=== PATIENT | female | born 1950 | race Caucasian/White ===

== ENCOUNTER → 2019-08-10 09:14 | Outpatient (CLI) | payer MEDICARE, SELFPAY ==
--- NOTE | ~2019-08-10 | MR_ITS ---
EXAMINATION: MR ankle RT wo con DATE: 08/10/2019 10:19 INDICATION: Right ankle pain. TECHNIQUE: Magnetic resonance imaging (MRI) of the right ankle was performed without intravenous cont rast. Sequences included sagittal PD-weighted FS FSE, sagittal PD-weighted FSE, coronal PD-weighted F S FSE, coronal PD-weighted FSE, axial PD-weighted FS FSE, and axial PD-weighted FSE. COMPARISON: None. FINDINGS: Medial ankle ligaments: There are changes of prior sprain of the deltoid ligament characterized by thickening and increased s ignal involving the superficial component the deep component of the deltoid ligament is normal. Lateral ankle ligaments: There are changes of prior sprains of anterior talofibular ligament, calcaneofibular ligament, and an terior tibiofibular ligament characterized by thickening and increased signal intensity. Posterior ta lofibular ligament and posterior tibiofibular ligament are intact. Tendons: There is a longitudinal split tear of peroneus brevis tendon. The anterior and medial ankle tendons a re normal. There is a partial tear of Achilles tendon at the distal attachment where there is thicken ing and increased signal intensity. There is an enthesophyte at the calcaneal attachment. There is wray bcutaneous edema posterior to the Achilles tendon. Plantar fascia: There is thickening and increased signal involving the central band of plantar fascia. There is an en thesophyte at the calcaneal attachment. Bones/other: Bone alignment is normal. No fracture. There is partial-thickness cartilage loss of lateral talar dom e. Fluid: There is no joint effusion. There is mild pre-Achilles bursitis. IMPRESSION: 1. Low-grade partial tear of Achilles tendon at the distal attachment. 2. Mild pre-Achilles bursitis. 3. Plantar fasciitis. 4. Mild tibiotalar joint chondrosis. Reviewed, dictated and finalized at location A.
== END ==
PROVIDERS: Visit Provider Podiatrist Foot & Ankle Surgery
DX: M76.61 Achilles tendinitis, right leg (principal); M72.2 Plantar fascial fibromatosis
CPT/HCPCS: 73721

== ENCOUNTER 2019-10-23 09:45 | Outpatient (CLI) | payer MEDICARE, SELFPAY ==
[2019-10-23 10:40] LABS: Alanine Aminotransferase 20 U/L (4-35); Albumin Level 4.5 g/dL (3.5-5.1); Alkaline Phosphatase 110 U/L (38-126); Aspartate Amino Transferase 24 U/L (14-36); Bilirubin,Total 0.6 mg/dL (0.2-1.3); Blood Urea Nitrogen 10 mg/dL (7-17); Calcium 9.5 mg/dL (8.4-10.2); Carbon Dioxide 28 mmol/L (22-30); Chloride 103 mmol/L (98-107); Cholesterol 280 mg/dL (0-200); Estimated Glomerular Filt Rate > 60; Glucose 122 mg/dL (65-105); HDL Direct 42 mg/dL; Potassium 4.3 mmol/L (3.4-5.0); Sodium 139 mmol/L (137-145); Triglycerides 160 mg/dL (<150)
[2019-10-23 10:51] LABS: Hemoglobin A1C 6.7 % (<5.7); LDL Cholesterol Direct 191 mg/dL
== END 2019-10-23 09:46 | disposition home or self-care (01) ==
PROVIDERS: PCP Family Medicine; Visit Provider Family Medicine
DX: E11.9 Type 2 diabetes mellitus without complications (principal)
CPT/HCPCS: 36415; 80053; 80061; 83036

== ENCOUNTER 2020-10-30 09:24 | Outpatient (CLI) | payer MEDICARE, SELFPAY ==
[2020-10-30 10:00] LABS: Alanine Aminotransferase 21 U/L (4-35); Albumin Level 4.5 g/dL (3.5-5.1); Alkaline Phosphatase 96 U/L (38-126); Anion Gap 9 mmol/L (8-16); Aspartate Amino Transferase 26 U/L (14-36); Bilirubin,Total 0.6 mg/dL (0.2-1.3); Blood Urea Nitrogen 12 mg/dL (7-17); Calcium 9.9 mg/dL (8.4-10.2); Carbon Dioxide 27 mmol/L (22-30); Chloride 105 mmol/L (98-107); Cholesterol 271 mg/dL (0-200); Estimated Glomerular Filt Rate > 60; Glucose 113 mg/dL (65-105); HDL Direct 52 mg/dL; Potassium 4.4 mmol/L (3.4-5.0); Sodium 141 mmol/L (137-145); Triglycerides 181 mg/dL (<150)
[2020-10-30 10:06] LABS: Hematocrit 43.2 % (37.0-47.0); Hemoglobin 13.9 g/dL (12.0-15.0); Mean Corpuscular HGB Conc 32.2 g/dl (32-36); Mean Corpuscular Hemoglobin 29.8 pg (26-34); Mean Corpuscular Volume 92.7 fl (80-100); Mean Platelet Volume 9.9 fl (7.4-10.4); Platelet Count Result 297 k/mm3 (150-375); Red Blood Count 4.66 M/mm3 (4.2-5.4); Red Cell Distribution Width 13.9 % (11.5-14.5); White Blood Count 11.2 K/mm3 (4.5-10.0)
[2020-10-30 10:12] LABS: LDL Cholesterol Direct 147 mg/dL
[2020-10-30 10:38] LABS: Vitamin D 25 Hydroxy 22.9 ng/mL
[2020-10-30 11:09] LABS: Hepatitis C Virus Antibody Negative (Negative)
[2020-10-30 12:13] LABS: Iron 93 ug/dL (37-170); Percent Iron Saturation 31 % (20-50)
== END 2020-10-30 09:25 | disposition home or self-care (01) ==
PROVIDERS: PCP Family Medicine; Visit Provider Family Medicine
DX: E03.9 Hypothyroidism, unspecified (principal); E55.9 Vitamin D deficiency, unspecified; Z11.59 Encounter for screening for other viral diseases; G25.81 Restless legs syndrome; E11.9 Type 2 diabetes mellitus without complications; E78.2 Mixed hyperlipidemia; R53.83 Other fatigue
CPT/HCPCS: 36415; 80053; 80061; 82306; 82607; 82728; 83036; 83540; 83550; 84443; 85027; 86803

== ENCOUNTER 2020-11-17 13:30 | Outpatient (RCR) | payer MEDICARE, SELFPAY ==
--- NOTE | 2020-10-22 11:44 | PTOPEVAL ---
INITIAL PHYSICAL THERAPY EVALUATION and PLAN OF CARE Thank you for referring Cuca Acevedo to [facility].? Cuca is scheduled to be seen for physical therapy? 2x/week for 6 weeks. Please review, sign, date and return this plan of care LC. I agree with and certify that the following plan of care is medically necessary. Referring Physician Date Admitting Provider: Attending Provider: Daria Lyles, DPM Referring Provider: *PT Outpatient Evaluation Start: 10/22/20 10:42 Freq: Status: Active Protocol: Document 10/22/20 10:40 CHARISMA (Rec: 10/22/20 11:43 CHARISMA [id number]) Therapy Assessment Status Assessment Status Assessment Status Evaluation Outpatient Past Medical History Past Medical History Source of Past Medical History Patient Gastrointestinal History Hx Other Gastrointestinal Disorders Yes: constipation Genitourinary History Hx Other Genitourinary Disorders Yes: urinary incontinence Musculoskeletal History Hx Orthopedic Surgery Yes: R Achilles' tendon repair HEENT History Hx Cataracts Yes: consultation December 08, 2020 Reproductive History Hx Hysterectomy Yes Evaluation Information Problem Diagnosis R Achilles tendon surgery, bone spur removal Onset 09/02/20 Subjective Information Fell forward on step at [employer] Query Text:As Reported By Patient/ - caught R foot - felt a real Family strain. - fall 05/07/2020 - granddaughter wedding. Continued to feel soreness - sharp, burning pain walking up driveway. Never got better. Went to see violin repairer - had surgery - to repair tendon and remove bone spur. 2 wks after surgery in cast. Then went into walking boot - increased difficulty ambulating in walking boot - had irritation - wound occurred. Received medication from PCP - helping. Out of walking boot about 1 week ago. Has developed increase in discomfort L buttock region. 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
--- NOTE | 2020-11-23 14:22 | PCPTNOTE ---
Patient did not show up for scheduled appointment this date; called patient who stated she was confused on appointment time and was reminded on next appointment 11/26
--- NOTE | 2020-12-01 17:05 | PCPTNOTE ---
Cuca called on 11/25/2020 cancelling the remainder of her appointments due to injuring her hamstring. Will send d/c summary to .
--- NOTE | 2020-12-01 17:06 | PCPTNOTE ---
PHYSICAL THERAPY DISCHARGE SUMMARY Admitting Provider: Attending Provider: Daria Lyles, DPM Patient:Cuca Acevedo Date of :1950 Cuca phoned on 11/25/20 to cancel the remainder of her appointments due to injuring her hamstring. Therefore (he/she) will be discharged at this time. Cuca?s initial visit was on 10/22/2020 10:30 and she had a total of 8 visits. The goals have been partially met. Thank you for referring Cuca to [facility]. Please review, sign, date and return this discharge summary LC. I have been updated about Cuca's current status and I agree with discharge from the above service at this time. Referring Physician Date
== END 2020-12-04 14:40 | disposition home or self-care (01) ==
LOC: ANHPT 13:30
PROVIDERS: PCP Family Medicine; Visit Provider Podiatrist Foot & Ankle Surgery
DX: M76.61 Achilles tendinitis, right leg (principal)
CPT/HCPCS: 97035; 97110; 97140; 97161

== ENCOUNTER 2020-11-20 10:58 | Outpatient (CLI) | payer MEDICARE, SELFPAY ==
--- NOTE | ~2020-11-20 | MM_ITS ---
EXAMINATION: MM screening [facility] BI w josette HISTORY: Screening mammogram TECHNIQUE: Craniocaudal and mediolateral oblique 3-D tomosynthesis images were obtained and synthetic 2-D images were generated. CAD analysis was submitted and interpreted. COMPARISON: 12/18/2017, 03/18/2016, 12/12/2014 BREAST PARENCHYMAL COMPOSITION: There are scattered areas of fibroglandular density. FINDINGS: A stable low-density mass in the middle third of the left breast is consistent with a benig n finding. There is no evidence of suspicious mass, calcification, or architectural distortion to sug gest malignancy in either breast. There has been no suspicious interval change. IMPRESSION: 1. No mammographic evidence of malignancy. 2. Recommend routine screening mammography in one year. BI-RADS Category 2: Benign finding(s). Reviewed, dictated and finalized at location A.
== END 2020-11-20 10:59 | disposition home or self-care (01) ==
LOC: ANHIMG 10:59
PROVIDERS: PCP Family Medicine; Visit Provider Family Medicine
DX: Z12.31 Encounter for screening mammogram for malignant neoplasm of breast (principal)
CPT/HCPCS: 77063; 77067

== ENCOUNTER 2021-06-11 15:55 | Inpatient (IN) | payer MEDICARE, SELFPAY ==
--- NOTE | ~2021-06-11 | XR_ITS ---
XR abdomen NG/feed tube insert DATE: 06/11/2021 23:53 INDICATION: NG tube placement TECHNIQUE: Portable AP view on 06/03/2021 at 2341 hours COMPARISON: None FINDINGS: NG tube is present in the gastric fundus, the proximal side-port just beyond the diaphragma tic hiatus. IMPRESSION: NG tube in very proximal stomach, proximal side-port just distal to the diaphragmatic hia tus Reviewed, dictated and finalized at Location A. Reviewed, dictated and finalized at location A. ECTIONS ANALYST IMPRESSION: NG tube in very proximal stomach, proximal side-port just distal to the diaphragmatic hiatus
--- NOTE | ~2021-06-11 | XR_ITS ---
. EXAMINATION: XR UGI water soluble w sbs DATE: 06/13/2021 11:39 INDICATION: Small bowel obstruction. TECHNIQUE: Water-soluble contrast was injected into the nasogastric tube. Fluoroscopy of the stomach and small bowel was performed. Fluoroscopy exposure time was 0.1 minutes. Radiographs of the abdomen were obtained. The total number of images was 9. COMPARISON: CT abdomen and pelvis 06/11/2021 FINDINGS: UPPER GASTROINTESTINAL SERIES: The nasoenteric tube tip is in the distal stomach. The stomach and duodenum demonstrate a normal fold ing pattern. SMALL BOWEL SERIES: There are mildly dilated loops of mid small bowel. There are scattered diverticula in the small bowel . Transit time to the colon was 45 minutes. IMPRESSION: 1. Mildly dilated mid small bowel with normal transit time to the colon, consistent with adynamic ile us versus low-grade partial obstruction. Reviewed, dictated and finalized at location A. INSPECTOR IMPRESSION: 1. Mildly dilated mid small bowel with normal transit time to the colon, consis tent with adynamic ileus versus low-grade partial obstruction.
--- NOTE | ~2021-06-11 | CT_ITS ---
EXAMINATION: CT abdomen pelvis w con DATE: 06/11/2021 22:10 INDICATION: Nausea and vomiting for one day. Fever. TECHNIQUE: Computed tomography (CT) of the abdomen and pelvis was performed with 100 cc Omnipaque 350 intravenous contrast. Automated exposure control and iterative reconstruction technique were employe d. Exam dose: July 10, 2012 MR abdomen July 09, 2012 CT abdomen pelvis mGy-cm total exam DLP. COMPARISON: July 09, 2012 CT abdomen pelvis July 10, 2012 MRI abdomen FINDINGS: There is discoid atelectasis or scarring in the left lower lobe and base of the lingula. Normal heart size. No pericardial or pleural effusion. Stable small right lower hepatic lobe cyst. The gallbladder is present; no gallbladder wall thickenin g or pericholecystic fluid or fat stranding. No bile duct or pancreatic duct dilatation. No pancreati c mass lesion or calcification. Normal splenic size. 1.7 x 2.4 cm left adrenal mass (compared to 1.2 x 1.65 cm on 07/09/2012). Possible small 7.8 x 10 mm right adrenal mass. Occasional bilateral renal cysts. 4 mm nonobstructing lower pole right renal calculus. The urinary bladder is evacuated. Status post hysterectomy. Small sliding hiatal hernia. Diverticulosis of left and right colon; no CT evidence of diverticulitis. There are mildly dilated up to 3.1 cm diameter small bowel segments with air-fluid levels involving t he proximal two thirds of the small bowel with fecal-like contents in the more distally dilated small bowel just proximal to the transition zone at the mid lower abdomen. The small bowel distal to this is decompressed. There is extensive calcification of the abdominal aorta but no aneurysm. No intraperitoneal or retrop eritoneal or pelvic mass lesion or adenopathy or ascites. Degenerative changes of the thoracic and lumbar spine. No suspicious osteolytic or osteoblastic lesio ns are noted. IMPRESSION: Partial small bowel obstruction in the lower mid abdomen Reviewed, dictated and finalized at Location A. Reviewed, dictated and finalized at location A. RINTENDENT STEVEDORING
--- NOTE | ~2021-06-11 | XR_ITS ---
EXAMINATION: XR abdomen/kub 1V DATE: 06/12/2021 08:26 INDICATION: Small bowel obstruction. TECHNIQUE: A supine view of the abdomen was obtained. COMPARISON: CT abdomen and pelvis 06/11/2021 FINDINGS: There are dilated loops of small bowel in the mid and lower abdomen. The colon is decompres sed. The nasogastric tube tip is in the stomach. IMPRESSION: 1. Persistently dilated small bowel, consistent with small bowel obstruction. Reviewed, dictated and finalized at location A. NEL MACHINE OPERATOR
--- NOTE | ~2021-06-11 | XR_ITS ---
EXAMINATION: XR abdomen NG/feed tube rechec DATE: 06/12/2021 12:48 INDICATION: Nasogastric tube advancement. TECHNIQUE: An upright view of the abdomen was obtained. COMPARISON: Abdomen single view at 759 AM FINDINGS: The lower abdomen is excluded. There are no visible dilated loops of bowel. The nasogastric tube tip is in the stomach. IMPRESSION: 1. Nasogastric tube tip in the stomach. Reviewed, dictated and finalized at location A. TIC MOLDER
--- NOTE | ~2021-06-11 | XR_ITS ---
EXAMINATION: XR abdomen/kub 1V DATE: 06/13/2021 08:05 INDICATION: Small bowel obstruction. TECHNIQUE: A supine view of the abdomen on 2 radiographs was obtained. COMPARISON: Abdomen single view 06/12/2021 FINDINGS: There are no dilated loops of bowel. There is a moderate volume of stool in the colon. The nasogastric tube tip is in the stomach. IMPRESSION: 1. Nonobstructive bowel gas pattern. Reviewed, dictated and finalized at location A. LANE ELECTRICIAN
[2021-06-11 16:00] VITALS: BP 136/70; PULSE 118; RESP 16; TEMP 37.4; O2SAT 97
[2021-06-11 19:00] VITALS: BP 122/62; PULSE 103; RESP 20; O2SAT 95
[2021-06-11] MEDS: SODIUM CHLORIDE 0.9% IV 1,000 ML 999 ML IV CONT ×2 (21:22→23:37)
[2021-06-11] MEDS: ONDANSETRON INJ 4 MG/2 ML VIAL 8 MG IV PUSH (21:23)
[2021-06-11 21:24] LABS: Basophils Absolute Auto 0.1 K/mm3 (0.0-0.1); Basophils Percent Auto 0.4 % (0.2-1.2); Eosinophils Percent Auto 0.2 % (0-4.4); Hematocrit 48.7 % (37.0-47.0); Hemoglobin 16.3 g/dL (12.0-15.0); Immature Granulocyte Absolute 0.13 K/mm3 (0.00-0.031); Immature Granulocyte Percent A 0.7 % (0-0.5); Lymphocytes Absolute Auto 2.18 K/mm3 (0.9-3.2); Lymphocytes Percent Auto 12.5 % (18.3-44.2); Mean Corpuscular HGB Conc 33.5 g/dl (32-36); Mean Corpuscular Hemoglobin 30.9 pg (26-34); Mean Corpuscular Volume 92.2 fl (80-100); Mean Platelet Volume 9.5 fl (7.4-10.4); Monocytes Absolute Auto 1.4 K/mm3 (0.1-0.6); Monocytes Percent Auto 7.9 % (2.6-8.5); Neutrophils Absolute Auto 13.7 K/mm3 (1.3-6.7); Neutrophils Percent Auto 78.3 % (45.5-73.1); Platelet Count Result 320 k/mm3 (150-375); Red Blood Count 5.28 M/mm3 (4.2-5.4); Red Cell Distribution Width 13.5 % (11.5-14.5); White Blood Count 17.5 K/mm3 (4.5-10.0)
[2021-06-11 21:26] VITALS: BP 146/73; PULSE 100; RESP 18; O2SAT 99
--- NOTE | 2021-06-11 21:28 | ED.GENADULT ---
HPI - General Adult General Chief complaint: Nausea/Vomiting/Diarrhea Stated complaint: vomiting Time Seen by Provider: 06/11/21 20:49 Source: patient Mode of arrival: ambulatory Limitations: no limitations History of Present Illness HPI narrative: Patient 71 years old white female presented to the ED with intermittent abdominal pain mainly on the left lower quadrant associated with nausea vomiting started yesterday, got worse today. History of colon resection secondary to diverticulitis. Patient drinks daily, does not smoke or uses drugs. Related Data Home Medications Medication Instructions Recorded Confirmed No Home Medications 05/18/21 05/18/21 Allergies Allergy/AdvReac Type Severity Reaction Status Date / Time aspirin AdvReac Mild BLEEDING Verified 06/11/21 21:17 GUMS atorvastatin AdvReac Mild HAND Verified 06/11/21 21:17 MYALGIA simvastatin AdvReac Mild HAND Verified 06/11/21 21:17 MYALGIA Review of Systems Review of Systems: CONSTITUTIONAL: Denies fever, chills, or sweats. EYES: Denies visual changes, redness, or discharge. ENT: Denies rhinorrhea, congestion, sore throat, or otalgia. CARDIOVASCULAR: Denies chest pain, palpitations, or edema. RESPIRATORY: Denies cough or dyspnea. GASTROINTESTINAL: Denies abdominal pain, nausea, vomiting, or diarrhea. GENITOURINARY: Denies dysuria or hematuria. SKIN: Denies rash or itching. MUSCULOSKELETAL: Denies back pain, joint pain, or myalgia. NEUROLOGIC: Denies headache, numbness, or weakness. PSYCHIATRIC: Denies anxiety or depression. PMFSH Past Medical History Medical History Mixed hyperlipidemia Family History Family History Mother Family history of diabetes mellitus in first degree relative Diabetes mellitus Family history of coronary artery disease Father Acute myocardial infarction Family history of coronary artery disease Social History Social History Second hand tobacco smoke exposure: No Smoking end date: 05/15/96 Alcohol intake: never Substance use: never Substance use type: does not use Spiritual care concerns: No Agree to blood products: Yes Exam Narrative: General appearance: Well-developed, well-nourished Skin: Normal color Head: Normocephalic, nontraumatic Eyes: Clear conjunctiva ENT: Oropharynx normal, ears normal, nose normal Neck: Supple, nontender Chest and respiratory: Airway patent, no respiratory distress, no accessory muscle use Heart: Regular rate/rhythm Abdomen: Soft, positive tenderness left lower quadrant, no organomegaly, quiet bowel sounds Vascular: Normal peripheral pulses, normal capillary refill. Musculoskeletal: Normal range of motion, nontender back Neurologic: Alert and oriented ?3, [employer] is normal as tested, no gross motor deficit Course Course Emergency Course: Stable Vital Signs Vital signs: Vital Signs Temperature 37.4 C 06/11/21 16:00 Pulse Rate 118 H 06/11/21 16:00 Respiratory Rate 16 06/11/21 16:00 Blood Pressure 136/70 06/11/21 16:00 Pulse Oximetry 97 06/11/21 16:00 Temperature 37.4 C 06/11/21 16:00 Pulse Rate 100 06/11/21 21:26 Respiratory Rate 18 06/11/21 21:26 Blood Pressure 146/73 H 06/11/21 21:26 Pulse Oximetry 99 06/11/21 21:26 Medical Decision Making MDM Narrative Medical decision making narrative: Patient presents with left lower quadrant pain, Work-up showed that the patient have partial small bowel obstruction, NG tube ordered. Patient will be admitted for further evaluation. Differential Diag
[2021-06-11 21:30] LABS: Add Urine Microscopic? YES; Appearance Urine Clear (Clear); Bilirubin Urine Negative (Negative); Blood Urine Negative (Negative); Color Urine Yellow (Yellow); Glucose Urine UA Negative (Negative); Ketones Urine Trace mg/dL (Negative); Leukocyte Esterase Ur Negative LEU/UL (Negative); Mucus Urine Few /lpf; Nitrate Urine Negative (Negative); Protein Urine 1+ mg/dL (Negative); RBC Urine 0-2 /hpf (0-2); Specific Grav Ur 1.025 (1.001-1.035); Squamous Epithelial Cell Urine Moderate /hpf (Few); Urobilinogen Urine Negative mg/dL (<2.0)
[2021-06-11 21:40] LABS: Albumin Level 5.3 g/dL (3.5-5.1); Alkaline Phosphatase 103 U/L (38-126); Anion Gap 15 mmol/L (8-16); Aspartate Amino Transferase 34 U/L (14-36); Bilirubin,Total 1.3 mg/dL (0.2-1.3); Blood Urea Nitrogen 21 mg/dL (7-17); Calcium 9.8 mg/dL (8.4-10.2); Carbon Dioxide 22 mmol/L (22-30); Chloride 100 mmol/L (98-107); Estimated Glomerular Filt Rate > 60; Glucose 148 mg/dL (65-110); Lipase 28 U/L (23-300); Potassium 4.4 mmol/L (3.4-5.0); Sodium 137 mmol/L (137-145)
[2021-06-11 21:46] LABS: Alanine Aminotransferase 32 U/L (4-35)
[2021-06-11] MEDS: MORPHINE SULFATE (*CRX) 4 MG/ML INJ IV PUSH (23:42)
--- NOTE | 2021-06-12 01:36 | PM.IMHP ---
H&P: HPI History of Present Illness Date/Time: 06/12/21 01:36 Chief Complaint: Nausea vomiting abdominal pain Narrative: 71-year-old female with past medical history of prior sigmoid colon resection due to prior diverticulitis with pelvic abscess in 2012 who presented to the ER from home with she is nausea, vomiting and and abdominal pain. He reported this that she began having abdominal pain a few hours after eating a hamburger and 3 potato fries on the . She attempted to take Pepto-Bismol without any relief in her symptoms. She had greater than 10 episodes of emesis in a 12 hour period. Her emesis was unrelieved the Pepto-Bismol. She had crampy he, intermittent abdominal pain as a 7/10 in intensity. She would have occasional sharp stabbing pains accompanying this. The pain was mostly in the left lower quadrant. Her emesis was dark in color. She had an NG placed in the ER after CT demonstrated partial small-bowel obstruction. She has had 250 mL of bilious material aspirated. She reports that her abdominal pain is actually a little bit worse after placement of NG tube as pain is more crampy infrequent. She reports resolution of her nausea after NG was placed. She has not had a bowel movement in 5 days. She has history of chronic constipation. She usually takes a laxative any time she goes more than 3 days without having a bowel movement. Unfortunately, her vomiting started before she could take her laxative. She has intermittent urgent stress urinary incontinence. She denies any dysuria or changes in urinary frequency. She denies any hematochezia or melena. She has not had any fevers or chills. Her temperature in the ER was 99.4. She is vaccinated against COVID-19. She received her [employer] vaccine last year and then had a [employer] booster in April. Review of Systems Review of Systems: 12 systems were reviewed with pertinent positives and negatives per HPI. Except as documented in the HPI, all other systems were reviewed and are negative. [facility] Past Medical History Medical History (Updated 06/12/21 @ 04:35 by Aleah Flores DO) Chronic constipation Diverticulitis Mixed hyperlipidemia Intolerant to statins Mixed stress and urge urinary incontinence Surgical History Surgical History (Updated 06/12/21 @ 04:14 by Aleah Flores DO) H/O resection of large bowel Due to diverticulitis History of right cataract extraction Family History Family History (Updated 06/12/21 @ 04:29 by Aleah Flores DO) Mother , Age greater than 80 Diabetes mellitus Father , at age 89 Acute myocardial infarction Age greater than 80 Social History Social History (Updated 06/12/21 @ 04:33 by Aleah Flores DO) Social History: She has been since 2017. She was for 51 years prior to her 's . She has 3 adult sons. 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 She smoked a half a pack of cigarettes per day for 20 years but quit smoking in her late 30s. She drinks 1 mixed drink a night since her . She denies any illicit substance use. Primary care physician: Dr. Rose Marie Henriquez Code status: Full code Healthcare power of corporate attorney: Harsha (oldest son) Second hand tobacco smoke exposure: No Smoking end date: 05/15/84 Alcohol intake: never Substance use: never Spiritual care concerns: No Agree to blood products: Yes Meds Home Medications and Allergies Home Medications Medication Instructions Recorded Confirmed Type No Home Medications 05/18/21 06/12/21 History Allergies Allergy/AdvReac Type Severity Reaction Status Date / Time aspirin AdvReac Mild BLEEDING Verified 06/11/21 21:17 GUMS atorvastatin AdvReac Mild HAND Verified 06/11/21 21:17 MYALGIA simvastatin AdvReac Mild HAND Verified 06/11/21 21:17 MYALGIA Natalie
[2021-06-12 01:38] LABS: SARS-CoV-2 RNA PCR Negative
[2021-06-12 02:22] VITALS: BP 152/71; PULSE 93; RESP 17; O2SAT 97
[2021-06-12] MEDS: SODIUM CHLORIDE 0.9% IV 1,000 ML 150 ML IV CONT (02:26)
--- NOTE | 2021-06-12 03:34 | PC.NURSE ---
JAZZMINE from Dr. Flores: pt may leave AMA.
[2021-06-12 05:29] VITALS: O2SAT 97
[2021-06-12 06:05] VITALS: BP 159/63; PULSE 98; RESP 18; TEMP 36.6; O2SAT 98
--- NOTE | 2021-06-12 06:32 | ADMGEN ---
This patient, Cuca Acevedo, was admitted to [facility] Room 330-02. Patient/family oriented to hospital policies and general routines including ID bracelet, bed and alarms, visiting hours, pain management, procedures, bathroom and other care routines, personal items, smoking policy, room service/diet, and visiting hours. Information on how to activate the Rapid Response Team has been discussed. Patient/Family are encouraged to report perceived risks to care and to ask questions if they do not understand what they are told or what they should do.
[2021-06-12 07:42] LABS: Basophils Absolute Auto 0.1 K/mm3 (0.0-0.1); Basophils Percent Auto 0.4 % (0.2-1.2); Eosinophils Absolute Auto 0.1 K/mm3 (0-0.3); Eosinophils Percent Auto 0.4 % (0-4.4); Hematocrit 40.1 % (37.0-47.0); Hemoglobin 13.2 g/dL (12.0-15.0); Immature Granulocyte Percent A 0.6 % (0-0.5); Lymphocytes Absolute Auto 2.04 K/mm3 (0.9-3.2); Mean Corpuscular HGB Conc 32.9 g/dl (32-36); Mean Corpuscular Hemoglobin 31.1 pg (26-34); Mean Corpuscular Volume 94.4 fl (80-100); Monocytes Absolute Auto 1.8 K/mm3 (0.1-0.6); Monocytes Percent Auto 11.3 % (2.6-8.5); Neutrophils Absolute Auto 11.6 K/mm3 (1.3-6.7); Neutrophils Percent Auto 74.3 % (45.5-73.1); Platelet Count Result 270 k/mm3 (150-375); Red Blood Count 4.25 M/mm3 (4.2-5.4); Red Cell Distribution Width 13.6 % (11.5-14.5); White Blood Count 15.6 K/mm3 (4.5-10.0)
[2021-06-12 07:53] LABS: Anion Gap 16 mmol/L (8-16); Blood Urea Nitrogen 18 mg/dL (7-17); Calcium 8.1 mg/dL (8.4-10.2); Carbon Dioxide 13 mmol/L (22-30); Chloride 106 mmol/L (98-107); Estimated Glomerular Filt Rate > 60; Glucose 120 mg/dL (65-110); Potassium 4.3 mmol/L (3.4-5.0); Sodium 135 mmol/L (137-145)
[2021-06-12] MEDS: ONDANSETRON INJ 4 MG/2 ML VIAL IV PUSH (08:53)
[2021-06-12] MEDS: SODIUM CHLORIDE 0.9% IV 1,000 ML 100 ML IV CONT ×2 (11:58→20:30)
[2021-06-12] MEDS: ENOXAPARIN 40 MG/0.4 ML SYRINGE SUB-Q (12:04)
[2021-06-12] MEDS: MORPHINE SULFATE (*CRX) 4 MG/ML INJ IV PUSH (12:12)
--- NOTE | 2021-06-12 12:39 | PM.IMPN ---
Progress Note: A&P Assessment and Plan (1) Partial obstruction of small intestine: Code(s): K56.600 - Partial intestinal obstruction, unspecified as to cause Status: Acute Assessment and Plan: Partial small-bowel obstruction with history of prior sigmoid colon resection. Patient is NPO except for ice chips. NG tube in place to low intermittent suction. IV fluid hydration Analgesics and antiemetics f/u KUB and clinical status Subjective Date/time seen: 06/12/21 12:39 Interval history: 06/12 visit: Mild abdominal cramping. No further nausea or vomiting. Tolerating NG-tube although she wants and out. Past minimal flatus today. Last bowel movement 06/09. Denied chest pain or shortness of breath. Denied changes. Denied abnormal bleeding. Review of Systems Review of Systems: All systems reviewed & are unremarkable except as noted in HPI and below Exam Narrative: HEENT: sclerae nonicteric, pharyngeal mucosa pink and intact NECK: No JVD CHEST: Clear to auscultation. Normal effort. HEART: NL S1/S2, regular, no murmur ABDOMEN: BS+, protuberant but soft, MILD DIFFUSE TENDERNESS, no mass, no bruits EXTREMITIES: No cyanosis, edema, or clubbing NEUROLOGIC: CN intact and symmetric to inspection. MUSCULOSKELETAL: Tone and strength symmetric. PSYCH: Alert. Oriented to person, place, and time. Objective Data Vital Signs Vital Signs: Vital Signs - 24 hr 06/11/21 16:00 06/11/21 19:00 06/11/21 21:26 Temperature 99.4 F Pulse Rate 118 H 103 H 100 Respiratory Rate 16 20 18 Blood Pressure 136/70 122/62 146/73 H Pulse Oximetry 97 95 99 06/12/21 02:22 06/12/21 05:29 06/12/21 06:05 Temperature 98 F Pulse Rate 93 98 Respiratory Rate 17 18 Blood Pressure 152/71 H 159/63 H Pulse Oximetry 97 97 98 Intake/Output Intake/Output: Intake & Output 06/09/21 06/10/21 06/11/21 06/12/21 23:59 23:59 23:59 23:59 Intake Total 1000 2050 Output Total 100 400 Balance 900 1650 Meds/Results Medications: Active Medications Generic Name Dose Route Start Last Admin Trade Name Freq PRN Reason Stop Dose Admin Enoxaparin Sodium 40 mg 06/12/21 09:00 06/12/21 12:04 Enoxaparin 40 Mg/0.4 Ml Syringe SUB-Q 40 mg DAILY RACIEL Administration Sodium Chloride 1,000 mls @ 100 mls/hr 06/11/21 23:20 06/12/21 11:58 Normal Saline Iv IV CONT 100 mls/hr .Q10H RACIEL Administration Ibuprofen 800 mg in 200 mls @ 400 mls/hr 06/12/21 08:47 Caldolor 800 Mg/200 Ml IVPB Q6H PRN Pain Rated 1-3 Morphine Sulfate 2 mg 06/12/21 08:47 Morphine Sulfate (*Crx) 2 Mg/Ml Inj IV PUSH Q2H PRN Pain Rated 4-6 Morphine Sulfate 4 mg 06/12/21 08:47 06/12/21 12:12 Morphine Sulfate (*Crx) 4 Mg/Ml Inj IV PUSH 4 mg Q2H PRN Administration Pain Rated 7-10 Ondansetron HCl 4 mg 06/11/21 23:18 06/12/21 08:53 Ondansetron Inj 4 Mg/2 Ml Vial IV PUSH 4 mg Q4H PRN Administration Nausea Radiology Results: ITS Impressions Abdomen/Pelvis CT 06/11/21 22:21 IMPRESSION: Partial small bowel obstruction in the lower mid abdomen Abdomen X-Ray 06/12/21 08:38 IMPRESSION: 1. Persistently dilated small bowel, consistent with small bowel obstruction. Labs Labs: Laboratory Results - last 24 hr 06/11/21 06/11/21 06/11/21 20:57 21:12 21:12 WBC 17.5 H RBC 5.28 Hgb 16.3 H Hct 48.7 H MCV 92.2 MCH 30.9 MCHC 33.5 RDW 13.5 Plt Count 320 MPV 9.5 Immature Gran % (Auto) 0.7 H Neut % (Auto) 78.3 H Lymph % (Auto) 12.5 L [place] % (Auto) 7.9 Eos % (Auto) 0.2 Baso % (Auto) 0.4 Lymph # (Auto) 2.18 [place] # (Auto) 1.4 H Eos # (Auto) 0.0 Baso # (Auto) 0.1 Abs Immat Gran (auto) 0.13 H Absolute Neuts (auto) 13.7 H Absolute Nucleated RBC 0.0 Nucleated RBC % 0.0 Sodium 137 Potassium 4.4 Chloride 100 Carbon Dioxide 22 Anion Gap 15 BUN 21 H Creatinine 0.80
--- NOTE | 2021-06-12 12:46 | PM.CNGS ---
Assessment and Plan Assessment and plan (1) Partial obstruction of small intestine: Code(s): K56.600 - Partial intestinal obstruction, unspecified as to cause Status: Acute Assessment and Plan: continue NG tube, NPO, IV fluids and analgesics on a p.r.n. basis. Will follow serial abdominal exam, labs, and KUB. I discussed with the patient that usually small bowel obstruction does resolve without surgery. However, if it does not, she may require laparotomy for small bowel obstruction. I described the usual course in both instances. Thank you for asking us to see this patient in consultation. We will follow along with you. History of Present Illness Consult details Consult date: 06/12/21 Reason for consult: abdominal pain ( With small-bowel obstruction) Requesting physician: Aleah Flores DO Narrative: patient is a 71-year-old woman whom I know from laparoscopic sigmoidectomy for diverticulitis in 2012. Two days ago after eating she developed abdominal pain and had numerous episodes of vomiting. in the emergency room she was noted to have a distended abdomen with tenderness in the left lower quadrant. [place] [address] scan showed small bowel obstruction. She has been admitted and is seen now in consultation for small bowel obstruction. Review of Systems Review of Systems: All systems reviewed & are unremarkable except as noted in HPI and below ( HPI) Constitutional: Constitutional: Denies chills, Denies fever(s) and Reports poor appetite Cardiovascular: Cardiovascular: Denies chest pain, Denies diaphoresis, Denies dyspnea and Denies paroxysmal nocturnal dyspnea Respiratory: Respiratory: Denies chest congestion, Denies cough and Denies dyspnea Integumentary/Breasts: Skin/Breast: Denies lesions and Denies rash PMFSH Past Medical History Medical History Chronic constipation Diverticulitis Mixed hyperlipidemia Intolerant to statins Mixed stress and urge urinary incontinence Surgical History Surgical History H/O resection of large bowel Due to diverticulitis History of right cataract extraction Family History Family History Mother , Age greater than 80 Diabetes mellitus Father , at age 89 Acute myocardial infarction Age greater than 80 Social History Social History Social History: She has been since 2017. She was for 51 years prior to her 's . She has 3 adult sons. 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 She smoked a half a pack of cigarettes per day for 20 years but quit smoking in her late 30s. She drinks 1 mixed drink a night since her . She denies any illicit substance use. Primary care physician: Dr. Rose Marie Henriquez Code status: Full code Healthcare power of tar worker: Harsha (oldest son) Smoking status: Former smoker Tobacco type: cigarettes Second hand tobacco smoke exposure: No Smoking end date: 05/15/84 Alcohol intake: never Substance use: never Spiritual care concerns: No Agree to blood products: Yes Meds Home Medications and Allergies Home Medications Medication Instructions Recorded Confirmed Type No Home Medications 05/18/21 06/12/21 History Allergies Allergy/AdvReac Type Severity Reaction Status Date / Time aspirin AdvReac Mild BLEEDING Verified 06/11/21 21:17 GUMS atorvastatin AdvReac Mild HAND Verified 06/11/21 21:17 MYALGIA simvastatin AdvReac Mild HAND Verified 06/11/21 21:17 MYALGIA Vital Signs Vital Signs - 24 hr 06/11/21 16:00 06/11/21 19:00 06/11/21 21:26 Temperature 37.4 C Pulse Rate 118 H 103 H 100 R
[2021-06-12 15:08] VITALS: BP 141/67; PULSE 80; RESP 16; TEMP 36.7; O2SAT 95
[2021-06-12 20:00] VITALS: PULSE 80; RESP 16; O2SAT 95
[2021-06-12] MEDS: PANTOPRAZOLE SODIUM IV 40 MG VIAL IV PUSH (20:27)
[2021-06-12 22:00] VITALS: BP 141/66; PULSE 90; RESP 16; TEMP 36.3; O2SAT 95
[2021-06-13] MEDS: SODIUM CHLORIDE 0.9% IV 1,000 ML 100 ML IV CONT ×2 (04:12→09:46)
[2021-06-13 06:00] VITALS: BP 145/61; PULSE 79; RESP 18; TEMP 36.9; O2SAT 96
[2021-06-13 09:52] LABS: Hematocrit 38.8 % (37.0-47.0); Hemoglobin 12.7 g/dL (12.0-15.0); Mean Corpuscular HGB Conc 32.7 g/dl (32-36); Mean Corpuscular Hemoglobin 31.2 pg (26-34); Mean Corpuscular Volume 95.3 fl (80-100); Mean Platelet Volume 9.6 fl (7.4-10.4); Platelet Count Result 239 k/mm3 (150-375); Red Blood Count 4.07 M/mm3 (4.2-5.4); Red Cell Distribution Width 13.2 % (11.5-14.5); White Blood Count 13.1 K/mm3 (4.5-10.0)
[2021-06-13] MEDS: ENOXAPARIN 40 MG/0.4 ML SYRINGE SUB-Q (09:53)
[2021-06-13] MEDS: PANTOPRAZOLE SODIUM IV 40 MG VIAL IV PUSH (09:53)
--- NOTE | 2021-06-13 09:56 | PM.PNGS ---
Progress Note: A&P Assessment and Plan (1) Partial obstruction of small intestine: Code(s): K56.600 - Partial intestinal obstruction, unspecified as to cause Status: Acute Assessment and Plan: Improving clinically and radiographically. Labs look good as well. Will get water soluble contrast upper GI small-bowel follow-through today. If transit is relatively normal, DC NG and start oral intake. Subjective Subjective Date/Time Seen: 06/13/21 09:56 Patient reports: pain is less (No abdominal pain, complains of NG tube), no flatus and no bowel movement Review of Systems Review of Systems: All systems reviewed & are unremarkable except as noted in HPI and below Cardiovascular: Cardiovascular: Denies chest pain and Denies dyspnea Respiratory: Respiratory: Denies cough and Denies dyspnea Gastrointestinal: Gastrointestinal: Reports as per HPI, Denies abdominal pain, Denies heartburn, Denies nausea and Denies vomiting Exam Const: General: comfortable and no acute distress; No confusion Orientation/consciousness: patient oriented x3 and No confusion GI: Inspection: distended GI Palp: Yes Soft to palpation, No Tenderness to palpation present (GI), No Guarding due to palpation present (GI), No Hernia present, No Palpable mass present and No Rebound tenderness present Neuro: General: patient oriented x3, no focal motor deficits and No confusion Extrem: General: no calf tenderness and no edema Psych: Affect: normal affect Insight: Good insight present (Psych) Judgement: Good judgement present (Psych) Objective Data Vital Signs Vital Signs: Vital Signs - 24 hr 06/12/21 15:08 06/12/21 20:00 06/12/21 22:00 Temperature 36.7 C 36.3 C L Pulse Rate 80 80 90 Respiratory Rate 16 16 16 Blood Pressure 141/67 H 141/66 H Pulse Oximetry 95 95 95 06/13/21 06:00 Temperature 36.9 C Pulse Rate 79 Respiratory Rate 18 Blood Pressure 145/61 H Pulse Oximetry 96 Intake/Output Intake/Output: Intake & Output 06/10/21 06/11/21 06/12/21 06/13/21 23:59 23:59 23:59 23:59 Intake Total 1000 3050 2000 Output Total 100 400 Balance 900 2650 1999 Meds/Results Medications: Active Medications Generic Name Dose Route Start Last Admin Trade Name Freq PRN Reason Stop Dose Admin Enoxaparin Sodium 40 mg 06/12/21 09:00 06/13/21 09:53 Enoxaparin 40 Mg/0.4 Ml Syringe SUB-Q 40 mg DAILY RACIEL Administration Sodium Chloride 1,000 mls @ 100 mls/hr 06/11/21 23:20 06/13/21 09:46 Normal Saline Iv IV CONT 100 mls/hr .Q10H RACIEL Administration Ibuprofen 800 mg in 200 mls @ 400 mls/hr 06/12/21 08:47 Caldolor 800 Mg/200 Ml IVPB Q6H PRN Pain Rated 1-3 Morphine Sulfate 2 mg 06/12/21 08:47 Morphine Sulfate (*Crx) 2 Mg/Ml Inj IV PUSH Q2H PRN Pain Rated 4-6 Morphine Sulfate 4 mg 06/12/21 08:47 06/12/21 12:12 Morphine Sulfate (*Crx) 4 Mg/Ml Inj IV PUSH 4 mg Q2H PRN Administration Pain Rated 7-10 Ondansetron HCl 4 mg 06/11/21 23:18 06/12/21 08:53 Ondansetron Inj 4 Mg/2 Ml Vial IV PUSH 4 mg Q4H PRN Administration Nausea Pantoprazole Sodium 40 mg 06/12/21 21:00 06/13/21 09:53 Pantoprazole Sodium Iv 40 Mg Vial IV PUSH 40 mg Q12HR RACIEL Administration Radiology Results: ITS Impressions Abdomen/Pelvis CT 06/11/21 22:21 IMPRESSION: Partial small bowel obstruction in the lower mid abdomen Abdomen X-Ray 06/13/21 08:07 IMPRESSION: 1. Nonobstructive bowel gas pattern. Imaging Attestation: I personally reviewed and interpreted this imaging study as follows: (Abdominal plain film) My impression: Normal bowel gas pattern, NG in good position Radiologist's impression: Same Quality VTE Prophylaxis VTE prophylaxis: mechanical ordered (SCDs)
[2021-06-13 10:10] LABS: Anion Gap 7 mmol/L (8-16); Blood Urea Nitrogen 10 mg/dL (7-17); Calcium 8.5 mg/dL (8.4-10.2); Carbon Dioxide 23 mmol/L (22-30); Chloride 104 mmol/L (98-107); Estimated Glomerular Filt Rate > 60; Glucose 81 mg/dL (65-110); Potassium 3.4 mmol/L (3.4-5.0); Sodium 134 mmol/L (137-145)
[2021-06-13] MEDS: MORPHINE SULFATE (*CRX) 4 MG/ML INJ IV PUSH (10:26)
--- NOTE | 2021-06-13 13:04 | PM.IMPN ---
Progress Note: A&P Assessment and Plan (1) Partial obstruction of small intestine: Code(s): K56.600 - Partial intestinal obstruction, unspecified as to cause Status: Acute Assessment and Plan: Partial small-bowel obstruction with history of prior sigmoid colon resection. 06/13 small-bowel follow-through with approximately 45 minute transit to colon consistent with ileus versus resolving partial obstruction 06/13 NG out and advance diet per surgical service Possibly home 06/14 Subjective Date/time seen: 06/13/21 13:04 Interval history: June 13 visit. No abdominal pain. No cramping. No nausea vomiting. Passing gas and stool. NG out this morning. Review of Systems Review of Systems: All systems reviewed & are unremarkable except as noted in HPI and below Exam Narrative: HEENT: sclerae nonicteric, pharyngeal mucosa pink and intact NECK: No JVD CHEST: Clear to auscultation. Normal effort. HEART: NL S1/S2, regular, no murmur ABDOMEN: BS+, protuberant but soft, nontender EXTREMITIES: No cyanosis, edema, or clubbing NEUROLOGIC: CN intact and symmetric to inspection. MUSCULOSKELETAL: Tone and strength symmetric. PSYCH: Alert. Oriented to person, place, and time. Objective Data Vital Signs Vital Signs: Vital Signs - 24 hr 06/12/21 15:08 06/12/21 20:00 06/12/21 22:00 Temperature 98.1 F 97.4 F L Pulse Rate 80 80 90 Respiratory Rate 16 16 16 Blood Pressure 141/67 H 141/66 H Pulse Oximetry 95 95 95 06/13/21 06:00 Temperature 98.4 F Pulse Rate 79 Respiratory Rate 18 Blood Pressure 145/61 H Pulse Oximetry 96 Intake/Output Intake/Output: Intake & Output 06/10/21 06/11/21 06/12/21 06/13/21 23:59 23:59 23:59 23:59 Intake Total 1000 3050 2000 Output Total 100 400 Balance 900 2650 1999 Meds/Results Medications: Active Medications Generic Name Dose Route Start Last Admin Trade Name Freq PRN Reason Stop Dose Admin Enoxaparin Sodium 40 mg 06/12/21 09:00 06/13/21 09:53 Enoxaparin 40 Mg/0.4 Ml Syringe SUB-Q 40 mg DAILY RACIEL Administration Sodium Chloride 1,000 mls @ 60 mls/hr 06/11/21 23:20 06/13/21 12:56 Normal Saline Iv IV CONT 60 mls/hr .[id number] [facility] Infusion Ibuprofen 800 mg in 200 mls @ 400 mls/hr 06/12/21 08:47 Caldolor 800 Mg/200 Ml IVPB Q6H PRN Pain Rated 1-3 Morphine Sulfate 2 mg 06/12/21 08:47 Morphine Sulfate (*Crx) 2 Mg/Ml Inj IV PUSH Q2H PRN Pain Rated 4-6 Morphine Sulfate 4 mg 06/12/21 08:47 06/13/21 10:26 Morphine Sulfate (*Crx) 4 Mg/Ml Inj IV PUSH 4 mg Q2H PRN Administration Pain Rated 7-10 Ondansetron HCl 4 mg 06/11/21 23:18 06/12/21 08:53 Ondansetron Inj 4 Mg/2 Ml Vial IV PUSH 4 mg Q4H PRN Administration Nausea Pantoprazole Sodium 40 mg 06/13/21 21:00 Pantoprazole 40 Mg Tablet PO Q12HR [facility] Radiology Results: ITS Impressions Abdomen/Pelvis CT 06/11/21 22:21 IMPRESSION: Partial small bowel obstruction in the lower mid abdomen Abdomen X-Ray 06/13/21 08:07 IMPRESSION: 1. Nonobstructive bowel gas pattern. Upper GI Series 06/13/21 11:45 IMPRESSION: 1. Mildly dilated mid small bowel with normal transit time to the colon, consistent with adynamic ileus versus low-grade partial obstruction. Labs Labs: Laboratory Results - last 24 hr 06/13/21 06/13/21 09:14 09:14 WBC 13.1 H RBC 4.07 L Hgb 12.7 Hct 38.8 MCV 95.3 MCH 31.2 MCHC 32.7 RDW 13.2 Plt Count 239 MPV 9.6 Sodium 134 L Potassium 3.4 Chloride 104 Carbon Dioxide 23 Anion Gap 7 L BUN 10 D Creatinine 0.60 L Estim Creat Clear Calc Not Reportable Estimated GFR > 60 Glucose 81 Calcium 8.5 Quality VTE Prophylaxis VTE prophylaxis: mechanical ordered (SCDs)
[2021-06-13 15:00] VITALS: BP 112/60; PULSE 100; RESP 16; TEMP 36.1; O2SAT 97
[2021-06-13] MEDS: PANTOPRAZOLE 40 MG TABLET PO (21:19)
[2021-06-13 22:16] VITALS: BP 124/45; PULSE 78; RESP 18; TEMP 36.6; O2SAT 96
[2021-06-14 04:44] VITALS: O2SAT 93
[2021-06-14 06:47] VITALS: BP 137/54; PULSE 73; RESP 18; TEMP 37.1; O2SAT 96
[2021-06-14 07:21] LABS: Hematocrit 36.4 % (37.0-47.0); Hemoglobin 12.1 g/dL (12.0-15.0); Mean Corpuscular HGB Conc 33.2 g/dl (32-36); Mean Corpuscular Hemoglobin 30.6 pg (26-34); Mean Corpuscular Volume 92.2 fl (80-100); Mean Platelet Volume 9.7 fl (7.4-10.4); Platelet Count Result 249 k/mm3 (150-375); Red Blood Count 3.95 M/mm3 (4.2-5.4); Red Cell Distribution Width 13.1 % (11.5-14.5); White Blood Count 11.5 K/mm3 (4.5-10.0)
[2021-06-14 07:34] LABS: Anion Gap 3 mmol/L (8-16); Blood Urea Nitrogen 12 mg/dL (7-17); Calcium 8.9 mg/dL (8.4-10.2); Carbon Dioxide 26 mmol/L (22-30); Chloride 105 mmol/L (98-107); Estimated Glomerular Filt Rate > 60; Glucose 111 mg/dL (65-110); Potassium 3.4 mmol/L (3.4-5.0); Sodium 134 mmol/L (137-145)
[2021-06-14] MEDS: ENOXAPARIN 40 MG/0.4 ML SYRINGE SUB-Q (09:22)
[2021-06-14] MEDS: PANTOPRAZOLE 40 MG TABLET PO (09:22)
--- NOTE | 2021-06-14 11:33 | PM.PNGS ---
Progress Note: A&P Assessment and Plan (1) Partial obstruction of small intestine: Code(s): K56.600 - Partial intestinal obstruction, unspecified as to cause Status: Acute Assessment and Plan: Small-bowel follow-through yesterday showed contrast reaching the colon in 45 minutes. Now tolerating a low-fiber diet. Bowels are moving. Okay from our standpoint to discharge the patient today on a regular diet. Follow up only as needed. Additional Plan I have discussed theplan of care with Dr. Redmond. Subjective Subjective Date/Time Seen: 06/14/21 11:33 Patient reports: no new complaints, feels better, tolerating a regular diet, flatus, bowel movement and afebrile Interval history: Patient seen and examined. Reports feeling much better. Denies any abdominal pain, nausea, vomiting, or bloating. Tolerating her diet. Reports multiple bowel movements since her Gastrografin study yesterday. No other complaints at this time. Review of Systems Review of Systems: All systems reviewed & are unremarkable except as noted in HPI and below Exam Const: General: comfortable, no acute distress, alert and awake Orientation/consciousness: patient oriented x3 GI: Inspection: non-distended and no visible herniation GI Palp: Yes Soft to palpation, No Tenderness to palpation present (GI), No Guarding due to palpation present (GI) and No Rebound tenderness present Auscultation: normal bowel sounds Neuro: General: moves all extremities and no focal motor deficits Extrem: General: normal to inspection Psych: Insight: Good insight present (Psych) Judgement: Good judgement present (Psych) Objective Data Vital Signs Vital Signs: Vital Signs - 24 hr 06/13/21 15:00 06/13/21 22:16 06/14/21 04:44 Temperature 97 F L 98 F Pulse Rate 100 78 Respiratory Rate 16 18 Blood Pressure 112/60 124/45 L Pulse Oximetry 97 96 93 06/14/21 06:47 Temperature 98.7 F Pulse Rate 73 Respiratory Rate 18 Blood Pressure 137/54 L Pulse Oximetry 96 Intake/Output Intake/Output: Intake & Output 06/11/21 06/12/21 06/13/21 06/14/21 23:59 23:59 23:59 23:59 Intake Total 1000 3050 2580 200 Output Total 100 400 Balance 900 2650 2580 200 Meds/Results Medications: Active Medications Generic Name Dose Route Start Last Admin Trade Name Freq PRN Reason Stop Dose Admin Enoxaparin Sodium 40 mg 06/12/21 09:00 06/14/21 09:22 Enoxaparin 40 Mg/0.4 Ml Syringe SUB-Q 40 mg DAILY RACIEL Administration Sodium Chloride 1,000 mls @ 60 mls/hr 06/11/21 23:20 06/13/21 12:56 Normal Saline Iv IV CONT 60 mls/hr .[id number] [facility] Infusion Ibuprofen 800 mg in 200 mls @ 400 mls/hr 06/12/21 08:47 Caldolor 800 Mg/200 Ml IVPB Q6H PRN Pain Rated 1-3 Morphine Sulfate 2 mg 06/12/21 08:47 Morphine Sulfate (*Crx) 2 Mg/Ml Inj IV PUSH Q2H PRN Pain Rated 4-6 Morphine Sulfate 4 mg 06/12/21 08:47 06/13/21 10:26 Morphine Sulfate (*Crx) 4 Mg/Ml Inj IV PUSH 4 mg Q2H PRN Administration Pain Rated 7-10 Ondansetron HCl 4 mg 06/11/21 23:18 06/12/21 08:53 Ondansetron Inj 4 Mg/2 Ml Vial IV PUSH 4 mg Q4H PRN Administration Nausea Pantoprazole Sodium 40 mg 06/13/21 21:00 06/14/21 09:22 Pantoprazole 40 Mg Tablet PO 40 mg Q12HR RACIEL Administration Radiology Results: ITS Impressions Abdomen/Pelvis CT 06/11/21 22:21 IMPRESSION: Partial small bowel obstruction in the lower mid abdomen Abdomen X-Ray 06/13/21 08:07 IMPRESSION: 1. Nonobstructive bowel gas pattern. Upper GI Series 06/13/21 11:45 IMPRESSION: 1. Mildly dilated mid small bowel with normal transit time to the colon, consistent with adynamic ileus versus low-grade partial obstruction. Labs Labs: Laboratory Results - last 24 hr 06/14/21 06/14/21 06:40 06:40 WBC 11.5 H RBC 3.95 L Hgb 12.1 Hct 36.4 L MCV 92.2 MCH 30.6 MCHC 33.2 RDW 13.1 Plt Count 249 MPV 9.7 S
--- NOTE | 2021-06-14 13:47 | PM.DS ---
DS: Admitting Diagnosis Discharge Date 06/14/21 Admitting Diagnosis Nausea, vomiting and abdominal pain DS: Discharge Diagnosis Discharge Diagnosis (1) Partial obstruction of small intestine: Code(s): K56.600 - Partial intestinal obstruction, unspecified as to cause Status: Acute DS: Summary Hospital Course Reason for hospitalization: 71yo with history of prior sigmoid colon resection who presented to the ER from home with nausea, vomiting and and abdominal pain. Hospital Course: Patient sen in the ED and had a NG placed after CT demonstrated partial small-bowel obstruction. She had 250 mL of bilious material aspirated. She had resolution of her nausea after NG was placed. She has not had a bowel movement in 5 days. She has history of chronic constipation. BUN was 21 but that improved with IV fluids. She had mild metabolic acidosis that resolved quickly probably related to the NG tube to suction. LFTs within normal limits. Serial abdominal x-ray shows resolution the partial small-bowel obstruction. Upper GI series showed mildly dilated mid small bowel with normal transit time to the colon. NG tube was removed and diet was started. She tolerated this well. She is passing stool and flatus. She overall did well was able be discharged home on 06/14/2021. General surgery was involved in her care and appreciate their input. Status at Discharge Cognitive/behavioral status at discharge: Stable Time Spent with Patient Time attestation: Total time spent providing and/or coordinating discharge services: 32 minutes Time spent: Greater than 30 minutes Exam Narrative: AF 98.7 137/54 73 18 96% ra Gen - NARD Chest - CTA bilaterally, nml RR CV - RRR S1/S2 Abd - Soft, NT/ND, Positive BS Ext - No pedal edema Neuro - Alert and oriented. Nonfocal exam. Psych - Nml mood and affect Skin - Warm and dry DS: Data Data Completed and Pending Labs on day of discharge: Labs from last 24 hours 06/14/21 06/14/21 06:40 06:40 WBC 11.5 H RBC 3.95 L Hgb 12.1 Hct 36.4 L MCV 92.2 MCH 30.6 MCHC 33.2 RDW 13.1 Plt Count 249 MPV 9.7 Sodium 134 L Potassium 3.4 Chloride 105 Carbon Dioxide 26 Anion Gap 3 L BUN 12 Creatinine 0.70 Estim Creat Clear Calc Not Reportable Estimated GFR > 60 Glucose 111 H Calcium 8.9 Discharge Plan Discharge Attending physician on discharge: Сергей Dang Consulting providers: Miguel Redmond Discharging Clinician: Сергей Dang Anticipated Discharge Date/Time: 06/14/21 14:12 Patient Disposition: Home, Self-Care Activity: as tolerated Diet: regular Discharge Instructions: Please avoid large gathering, wear face coverings in public and practice social distance. Take precautions to avoid falls. Rise slowly from a lying or sitting position. Pause before standing or walking. Contact your doctor or call 911 and come to the Emergency Room if you have increasing abdominal pain or other worrisome symptoms. Follow-up with your doctor in 1-2 weeks. Please call for appointment. Use Miralax [id number] as directed daily and adjust frequency t ensure one soft BM per day. Also encourage you to increase your fiber intake over the next few weeks as tolelrated (ex: bowel of bran cereal of 10-15gm soluble fiber/day) Patient Instructions: Antibiotic Form Stand Alone Forms: General Discharge Information Follow-up/Referrals: Rose Marie Henriquez MD [Primary Care Provider] - Call for Appointment Discharge Medications: Continued No Home Medications RF: 0 Date of admission: 06/11/21 23:18 Primary Care Provider: Rose Marie Henriquez Admitting Provider: Aleah Flores Attending physician on admission: Aleah Flores Condition: Stable Quality VTE Prophylaxis VTE prophylaxis: mechanical ordered (SCDs)
[2021-06-14 14:00] VITALS: BP 136/55; PULSE 78; RESP 18; TEMP 36.7; O2SAT 100
== END 2021-06-14 15:25 | disposition home or self-care (01) | DRG 389 ==
LOC: ANHED 23:16 → ANH3MEDSUR 06-12 03:34
PROVIDERS: Surgery; Admitting Provider Internal Medicine; Emergency Provider Emergency Medicine; PCP Family Medicine; Visit Provider Internal Medicine
DX: K56.600 Partial intestinal obstruction, unspecified as to cause (principal); E87.2 Acidosis; Z20.822 Contact with and (suspected) exposure to COVID-19; E78.2 Mixed hyperlipidemia; K59.09 Other constipation; N39.46 Mixed incontinence; Z98.41 Cataract extraction status, right eye; Z87.891 Personal history of nicotine dependence
CPT/HCPCS: 36415; 74018; 74177; 74240; 74248; 80048; 80053; 81001; 83690; 85025; 85027; 96361; 96374; 99285; A9270; C9113; C9803; J1650; J2270; J2405; J7030; Q9967; U0003; U0005

== ENCOUNTER 2021-06-16 02:45 | Inpatient (IN) | payer MEDICARE, SELFPAY ==
[2021-06-16] VITALS (9 sets, daily range): BP systolic 108–150; BP diastolic 53–92; PULSE 70–91; RESP 10–23; TEMP 36.2–36.6; O2SAT 93–100; BMI 29.7
--- NOTE | ~2021-06-16 | US_ITS ---
EXAMINATION: US right upper quadrant DATE: 06/16/2021 11:24 INDICATION: Abnormal liver function tests. TECHNIQUE: Multiple grayscale and Doppler ultrasound images of the abdomen were obtained. COMPARISON: CT abdomen and pelvis 06/16/2021 FINDINGS: The visualized portions of the head, body, and tail of the pancreas are normal. The liver i s normal without focal lesion. No liver surface nodularity. There is normal flow in main portal vein. The gallbladder is normal in size. No gallstones or gallbladder wall thickening. The common duct is normal measures 6 mm. IMPRESSION: 1. Normal right upper quadrant ultrasound. Reviewed, dictated and finalized at location E. MENDER
--- NOTE | ~2021-06-16 | XR_ITS ---
EXAMINATION: XR abdomen NG/feed tube insert DATE: 06/16/2021 05:01 INDICATION: Nasogastric tube placement. TECHNIQUE: An upright view of the abdomen was obtained. COMPARISON: Abdomen radiograph 06/13/2021 FINDINGS: The lower abdomen is excluded. There are no visible dilated loops of bowel. The nasogastric tube tip is in the stomach. IMPRESSION: 1. Nasogastric tube tip in the stomach. Reviewed, dictated and finalized at location E. FOOD ASSISTANT RESTAURANT MANAGER
--- NOTE | ~2021-06-16 | XR_ITS ---
EXAMINATION: XR abdomen obstructive series DATE: 06/17/2021 09:26 INDICATION: Small bowel obstruction TECHNIQUE: Frontal supine and upright views of the abdomen were obtained. COMPARISON: CT dated 06/16/2021 FINDINGS: Nasogastric tube tip in proximal side port in the body the stomach. Residual oral contrast material s cattered throughout the normal caliber colon including within several scattered diverticula. No dilat ed gas-filled loops of bowel to suggest obstruction. No free intraperitoneal gas. Visualized lung b ases are clear. Visualized lung bases are clear. IMPRESSION: 1. No free intraperitoneal gas or dilated gas-filled loops of bowel to suggest obstruction. 2. Nasogastric tube in the stomach. Reviewed, dictated and finalized at location A. ORT OPERATIONS DUTY MANAGER
--- NOTE | ~2021-06-16 | CT_ITS ---
EXAMINATION: CT abdomen pelvis w con DATE: 06/16/2021 03:46 INDICATION: Abdominal pain. Nausea and vomiting. TECHNIQUE: Computed tomography (CT) of the abdomen and pelvis was performed with 100 mL Omnipaque 350 intravenous contrast. Automated exposure control and iterative reconstruction technique were employe d. The dose-length product was 565.59 mGy-cm. COMPARISON: CT abdomen and pelvis 06/11/2021, 07/09/2012 FINDINGS: The visualized portions of the lung bases demonstrate mild atelectasis. No pleural effusion . The heart size is normal. No pericardial effusion. There is an 11 mm cyst in the liver. The gallbla dder, spleen, pancreas, and right adrenal gland are normal. There is a 2.2 cm mass in left adrenal gl and measuring soft tissue attenuation, increased from 1.6 cm on 07/09/2012, likely an adenoma. Right k idney is normal. There are cysts in left kidney including a pelvic cyst measuring up to 2.4 cm. There is diverticulosis of the colon without evidence of diverticulitis. The appendix is normal. There are multiple dilated loops of small bowel with transition point in the lower abdomen at the midline. The re are no pathologically enlarged lymph nodes. There is trace ascites. There is severe lower lumbar s pondylosis. IMPRESSION: 1. Small bowel obstruction with transition point in the lower abdomen at the midline. Reviewed, dictated and finalized at location E. HYSICAL LABORATORY CHIEF IMPRESSION: 1. Small bowel obstruction with transition point [facility].
[2021-06-16 03:02] LABS: Basophils Absolute Auto 0.1 K/mm3 (0.0-0.1); Basophils Percent Auto 0.4 % (0.2-1.2); Eosinophils Absolute Auto 0.1 K/mm3 (0-0.3); Eosinophils Percent Auto 0.4 % (0-4.4); Hematocrit 41.2 % (37.0-47.0); Hemoglobin 13.7 g/dL (12.0-15.0); Immature Granulocyte Absolute 0.11 K/mm3 (0.00-0.031); Immature Granulocyte Percent A 0.7 % (0-0.5); Lymphocytes Absolute Auto 1.36 K/mm3 (0.9-3.2); Lymphocytes Percent Auto 8.5 % (18.3-44.2); Mean Corpuscular HGB Conc 33.3 g/dl (32-36); Mean Corpuscular Hemoglobin 31.1 pg (26-34); Mean Corpuscular Volume 93.4 fl (80-100); Mean Platelet Volume 9.4 fl (7.4-10.4); Monocytes Absolute Auto 1.2 K/mm3 (0.1-0.6); Monocytes Percent Auto 7.5 % (2.6-8.5); Neutrophils Absolute Auto 13.2 K/mm3 (1.3-6.7); Neutrophils Percent Auto 82.5 % (45.5-73.1); Platelet Count Result 272 k/mm3 (150-375); Red Blood Count 4.41 M/mm3 (4.2-5.4); Red Cell Distribution Width 12.9 % (11.5-14.5)
[2021-06-16] MEDS: LACTATED RINGERS 1,000 ML 999 ML IV CONT (03:09)
--- NOTE | 2021-06-16 03:11 | ED.ABDPAIN ---
HPI - Abdominal Pain General Chief Complaint: Abdominal Pain Stated Complaint: lower abd pain Time Seen by Provider: 06/16/21 02:59 Source: patient Mode of arrival: EMS Limitations: no limitations History of Present Illness HPI narrative: Patient is a 69-year-old female complaining of lower abdominal pain, 9 out of 10, dull, nonradiating accompanied by nausea and vomiting started tonight. Patient was recently discharge 2 days ago from this hospital after being admitted secondary to bowel obstruction. Patient denies any chest pain, shortness of breath, fever or chills. Related Data Home Medications Medication Instructions Recorded Confirmed No Home Medications 05/18/21 06/12/21 Allergies Allergy/AdvReac Type Severity Reaction Status Date / Time aspirin AdvReac Mild BLEEDING Verified 06/16/21 02:52 GUMS atorvastatin AdvReac Mild HAND Verified 06/16/21 02:52 MYALGIA simvastatin AdvReac Mild HAND Verified 06/16/21 02:52 MYALGIA Review of Systems Review of Systems: All systems reviewed & are unremarkable except as noted in HPI and below Constitutional: Constitutional: Denies body ache(s), Denies chills, Denies excessive sweating, Denies fatigue, Denies fever(s), Denies headache(s), Denies lethargy, Denies malaise, Denies weakness and Denies weight loss Eyes: Eyes: Denies blurry vision, Denies change in vision and Denies loss of vision ENT: Denies dizziness, Denies ear discharge, Denies headache(s), Denies lip swelling, Denies epistaxis, Denies nasal congestion, Denies neck pain, Denies throat swelling and Denies tongue swelling Cardiovascular: Cardiovascular: Denies chest pain, Denies chest pain at rest, Denies chest pain with activity, Denies diaphoresis, Denies rapid heart rate, Denies edema, Denies irregular heart rhythm, Denies lightheadedness, Denies palpitations, Denies dyspnea and Denies dyspnea on exertion Respiratory: Respiratory: Denies chest congestion, Denies cough, Denies hemoptysis, Denies dyspnea and Denies dyspnea on exertion Gastrointestinal: Gastrointestinal: Denies melena, Denies hematochezia, Denies diarrhea and Denies hematemesis Musculoskeletal: Musculoskeletal: Denies abnormal gait, Denies deformity, Denies joint swelling, Denies limited range of motion, Denies neck pain and Denies numbness Neurologic: Denies Abnormal speech present, Denies abnormal gait, Denies confusion, Denies dizziness, Denies headache(s), Denies focal weakness, Denies loss of vision, Denies numbness, Denies Other visual disturbances, Denies Sensory deficit (Neuro) and Denies weakness Psychiatric: Psychiatric: Denies confusion, Denies depression, Denies auditory hallucinations, Denies homicidal ideation and Denies suicidal ideation Endocrine: Endocrine: Denies cold intolerance, Denies excessive sweating, Denies fatigue, Denies heat intolerance and Denies palpitations Hematologic/Lymphatic: Hematologic/Lymphatic: Denies easy bleeding and Denies easy bruising Allergic/Immunologic: Allergic/Immunologic: Denies lip swelling, Denies throat swelling and Denies tongue swelling PMFSH Past Medical History Medical History Chronic constipation Diverticulitis Mixed hyperlipidemia Intolerant to statins Mixed stress and urge urinary incontinence Surgical History Surgical History H/O resection of large bowel Due to diverticulitis History of right cataract extraction Family History Family History Mother , Age greater than 80 Diabetes mellitus Father , at age 89 Acute myocardial infarction Age greater than 80 Social History Social History Social History: She has been since 2017. She was for 51 years prior to her 's . She has 3 adult sons.
[2021-06-16 03:15] LABS: Alanine Aminotransferase 83 U/L (4-35); Albumin Level 4.4 g/dL (3.5-5.1); Alkaline Phosphatase 149 U/L (38-126); Anion Gap 8 mmol/L (8-16); Aspartate Amino Transferase 90 U/L (14-36); Bilirubin,Total 0.8 mg/dL (0.2-1.3); Blood Urea Nitrogen 13 mg/dL (7-17); Calcium 9.3 mg/dL (8.4-10.2); Carbon Dioxide 26 mmol/L (22-30); Chloride 104 mmol/L (98-107); Estimated CRCL calculation 65 ml/min; Estimated Glomerular Filt Rate > 60; Glucose 151 mg/dL (65-110); Lipase 92 U/L (23-300); Potassium 3.9 mmol/L (3.4-5.0); Sodium 138 mmol/L (137-145)
[2021-06-16] MEDS: HYDROmorphone HCL INJ (*CRX) 1 MG/ML SYR 0.5 MG IV PUSH ×3 (03:15→20:38)
[2021-06-16] MEDS: PROMETHAZINE HCL 25 MG/ML AMPUL 12.5 MG IV PUSH (03:15)
[2021-06-16 03:46] LABS: Add Urine Microscopic? YES; Appearance Urine Cloudy (Clear); Bilirubin Urine Negative (Negative); Blood Urine Negative (Negative); Color Urine Yellow (Yellow); Glucose Urine UA Negative (Negative); Ketones Urine Trace mg/dL (Negative); Leukocyte Esterase Ur 1+ LEU/UL (Negative); Mucus Urine Moderate /lpf; Nitrate Urine Negative (Negative); Protein Urine Negative (Negative); Squamous Epithelial Cell Urine Many /hpf (Few); Urobilinogen Urine Negative mg/dL (<2.0)
[2021-06-16 03:57] LABS: Basophils Percent Auto 0.2 % (0.2-1.2); Eosinophils Percent Auto 0.1 % (0-4.4); Hematocrit 36.7 % (37.0-47.0); Hemoglobin 12.1 g/dL (12.0-15.0); Immature Granulocyte Absolute 0.11 K/mm3 (0.00-0.031); Immature Granulocyte Percent A 0.9 % (0-0.5); Lymphocytes Absolute Auto 0.74 K/mm3 (0.9-3.2); Lymphocytes Percent Auto 5.7 % (18.3-44.2); Mean Corpuscular Hemoglobin 30.8 pg (26-34); Mean Corpuscular Volume 93.4 fl (80-100); Mean Platelet Volume 9.5 fl (7.4-10.4); Monocytes Absolute Auto 0.9 K/mm3 (0.1-0.6); Monocytes Percent Auto 6.6 % (2.6-8.5); Neutrophils Absolute Auto 11.2 K/mm3 (1.3-6.7); Neutrophils Percent Auto 86.5 % (45.5-73.1); Platelet Count Result 239 k/mm3 (150-375); Red Blood Count 3.93 M/mm3 (4.2-5.4); Red Cell Distribution Width 12.9 % (11.5-14.5); White Blood Count 12.9 K/mm3 (4.5-10.0)
[2021-06-16 04:07] LABS: Alanine Aminotransferase 68 U/L (4-35); Albumin Level 3.5 g/dL (3.5-5.1); Alkaline Phosphatase 122 U/L (38-126); Anion Gap 7 mmol/L (8-16); Aspartate Amino Transferase 74 U/L (14-36); Bilirubin,Total 0.5 mg/dL (0.2-1.3); Blood Urea Nitrogen 13 mg/dL (7-17); Calcium 8.3 mg/dL (8.4-10.2); Carbon Dioxide 26 mmol/L (22-30); Chloride 102 mmol/L (98-107); Estimated CRCL calculation 65 ml/min; Estimated Glomerular Filt Rate > 60; Glucose 151 mg/dL (65-110); Lipase 71 U/L (23-300); Potassium 3.5 mmol/L (3.4-5.0); Sodium 135 mmol/L (137-145)
[2021-06-16 06:05] LABS: SARS-CoV-2 RNA PCR Negative
[2021-06-16] MEDS: ONDANSETRON INJ 4 MG/2 ML VIAL IV PUSH (06:44)
[2021-06-16] MEDS: LACTATED RINGERS 1,000 ML 125 ML IV CONT ×2 (07:25→17:03)
--- NOTE | 2021-06-16 08:20 | ADMGEN ---
This patient, Cuca Acevedo, was admitted to Medical Room 258-01. Patient/family oriented to hospital policies and general routines including ID bracelet, bed and alarms, visiting hours, pain management, procedures, bathroom and other care routines, personal items, smoking policy, room service/diet, and visiting hours. Information on how to activate the Rapid Response Team has been discussed. Patient/Family are encouraged to report perceived risks to care and to ask questions if they do not understand what they are told or what they should do.
[2021-06-16] MEDS: PANTOPRAZOLE SODIUM IV 40 MG VIAL IV PUSH (08:37)
--- NOTE | 2021-06-16 10:08 | PM.IMHP ---
H&P: HPI History of Present Illness Date/Time: 06/16/21 10:08 Chief Complaint: Abdominal pain Narrative: 71yo female with history of diverticulosis with partial colon resection and recent hospitalization for pSBO returns to the ED for abdominal pain, nausea and vomiting. Patient was seen in the emergency room June 11 for abdominal pain, nausea and vomiting and found to have a partial small-bowel obstruction. She had NG tube placed with resolution of the obstructive process by serial images. Upper GI showed mildly dilated mid small bowel with normal transit time to colon. NG tube was removed and she was started on a diet which she tolerated well. She was discharged home on June 14. Patient did well at home until around the evening hours prior to admission. She had a turkey sandwich around 6:00 p.m. then developed upper abdominal pressure with nausea and vomiting about an hour and a half later. She tried Pepto-Bismol without benefit. The upper abdominal pain did improve after vomiting but then she developed lower abdominal stabbing pain. Her last bowel movement was when she was hospitalized. She has not had bowel movement since discharge but was passing flatus. No melena or hematochezia recently. She is due for colonoscopy. No hematemesis. No dysuria, hematuria, fever, odynophagia, dysphagia, chest pain, palpitations, shortness of breath, cough or sore throat. She does not take any other medications. She is up-to-date on her COVID vaccine. No anosmia or dysgeusia. She presented to the emergency room in the scullion chief hours of admission for abdominal pain, nausea and vomiting. In the emergency room, her vital signs are stable. White count was 13 K. Electrolytes within normal limits. Her AST was 90 with ALT 83 which is a new finding compared to last admission. Lipase was normal. UA did show 1+ leukocyte esterase and 10-15 white cells but many squamous epithelial cells. Urine culture has been collected. CT of the abdomen pelvis showed small-bowel obstruction with transition point in the lower abdomen at the midline. No diverticulitis. Likely left adrenal gland adenoma. NG tube was placed. Patient was admitted for further care. General surgery has been consulted through the ED. it should be mentioned that patient's history is somewhat limited due to the narcotics she has received for her pain. Review of Systems Review of Systems: All systems reviewed & are unremarkable except as noted in HPI and below PMFSH Past Medical History Medical History (Updated 06/16/21 @ 10:30 by Сергей Dang MD) Chronic constipation Diverticulitis Mixed hyperlipidemia Intolerant to statins Mixed stress and urge urinary incontinence Surgical History Surgical History (Updated 06/16/21 @ 10:21 by Сергей Dang MD) H/O resection of large bowel Due to diverticulitis History of right cataract extraction Hx of Achilles tendon repair Family History Family History Mother , Age greater than 80 Diabetes mellitus Father , at age 89 Acute myocardial infarction Age greater than 80 Social History Social History Social History: She has been since 2017. She was for 51 years prior to her 's . She has 3 adult sons. 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 She smoked a half a pack of cigarettes per day for 20 years but quit smoking in her late 30s. She drinks 1 mixed drink a night since her . She denies any illicit substance use. Primary care physician: Dr. Rose Marie Henriquez Code status: Full code Healthcare power of protozoology teacher: Harsha (oldest son) Smoking status: Former smoker Tobacco type: cigarettes Second hand tobacco smoke exposure: No Smoking end date:
[2021-06-16 12:00] LABS: SARS-CoV-2 RNA PCR Negative
--- NOTE | 2021-06-16 13:18 | PM.CNGS ---
Assessment and Plan Assessment and plan (1) Bowel obstruction: Qualifiers: Intestinal obstruction extent: unspecified extent Intestinal obstruction type: unspecified Qualified Code(s): K56.609 - Unspecified intestinal obstruction, unspecified as to partial versus complete obstruction Code(s): K56.609 - Unspecified intestinal obstruction, unspecified as to partial versus complete obstruction Status: Acute Assessment and Plan: I have reviewed the CT and discussed the findings with the patient. She was found to have a bowel obstruction which seem to be resolving over the weekend but now she has had rapid return of her symptoms. She did not tolerate being on a solid diet for more than a day or so. I have discussed that there is a high likelihood of her having a persistent bowel obstruction and this may not improve with more bowel rest and NG decompression. I have recommended proceeding with exploratory laparotomy with possible bowel resection. I discussed the procedure, risks, benefits, and alternatives. Questions were answered. Patient is agreeable to proceeding. Will continue NG decompression today and plan for surgery tomorrow. History of Present Illness Consult details Consult date: 06/16/21 Reason for consult: other (Small-bowel obstruction) Requesting physician: Lazaro Mueller MD Narrative: This is a 71-year-old woman who I am asked to see for recurrent small-bowel obstruction. She was just hospitalized last week for small-bowel obstruction. She was discharged on 06/14/2021 after tolerating a regular diet. She states that since she was discharged she has not had a bowel movement. She has passed a little bit of gas. She began experiencing nausea and vomiting with worsening abdominal pain overnight and presented back to the emergency department early this morning. When she was just hospitalized, small-bowel follow-through was obtained show contrast it into colon rapidly, but there was still some mildly dilated small bowel. Repeat CT in the emergency department this morning shows recurrent small-bowel obstruction. NG tube was placed and she has been readmitted. Her pain is not very bad anymore and she only complaints of discomfort from the NG tube. Review of Systems Review of Systems: All systems reviewed & are unremarkable except as noted in HPI and below Constitutional: Constitutional: Denies chills and Denies fever(s) Eyes: Eyes: Denies change in vision ENT: Denies hearing loss, Denies neck pain and Denies sore throat Cardiovascular: Cardiovascular: Denies chest pain and Denies dyspnea Respiratory: Respiratory: Denies cough, Denies dyspnea and Denies wheezing Gastrointestinal: Gastrointestinal: Reports as per HPI Genitourinary: Genitourinary: Denies hematuria and Denies dysuria Musculoskeletal: Musculoskeletal: Denies arthralgias, Denies joint swelling and Denies neck pain Allergic/Immunologic: Allergic/Immunologic: Denies wheezing [facility] Past Medical History Medical History Chronic constipation Diverticulitis Mixed hyperlipidemia Intolerant to statins Mixed stress and urge urinary incontinence Surgical History Surgical History H/O resection of large bowel Due to diverticulitis History of bilateral salpingo-oophorectomy (BSO) History of right cataract extraction History of vaginal hysterectomy Hx of Achilles tendon repair Family History Family History Mother , Age greater than 80 Diabetes mellitus Father , at age 89 Acute myocardial infarction Age greater than 80 Social History Social History Social History: She has been since 2017. She was for 51 years prior to her 's . She has 3 adult
[2021-06-16] MEDS: PHENOL/SOD PHENO SPRAY CHERRY (*BKC) 1 SPRAY MUCOUS MEM (20:35)
[2021-06-17] VITALS (14 sets, daily range): BP systolic 73–170; BP diastolic 40–78; PULSE 71–110; RESP 14–20; TEMP 36.2–36.9; O2SAT 93–100
[2021-06-17] MEDS: LACTATED RINGERS 1,000 ML 125 ML IV CONT (01:01)
[2021-06-17 05:54] LABS: Basophils Absolute Auto 0.1 K/mm3 (0.0-0.1); Basophils Percent Auto 0.5 % (0.2-1.2); Eosinophils Absolute Auto 0.1 K/mm3 (0-0.3); Hematocrit 40.4 % (37.0-47.0); Hemoglobin 13.1 g/dL (12.0-15.0); Immature Granulocyte Absolute 0.11 K/mm3 (0.00-0.031); Lymphocytes Absolute Auto 2.06 K/mm3 (0.9-3.2); Lymphocytes Percent Auto 19.5 % (18.3-44.2); Mean Corpuscular HGB Conc 32.4 g/dl (32-36); Mean Corpuscular Hemoglobin 31.1 pg (26-34); Mean Platelet Volume 9.6 fl (7.4-10.4); Monocytes Absolute Auto 1.1 K/mm3 (0.1-0.6); Monocytes Percent Auto 10.4 % (2.6-8.5); Neutrophils Absolute Auto 7.1 K/mm3 (1.3-6.7); Neutrophils Percent Auto 67.6 % (45.5-73.1); Platelet Count Result 247 k/mm3 (150-375); Red Blood Count 4.21 M/mm3 (4.2-5.4); White Blood Count 10.6 K/mm3 (4.5-10.0)
[2021-06-17 06:18] LABS: Alanine Aminotransferase 83 U/L (4-35); Albumin Level 3.8 g/dL (3.5-5.1); Alkaline Phosphatase 110 U/L (38-126); Anion Gap 3 mmol/L (8-16); Aspartate Amino Transferase 61 U/L (14-36); Bilirubin,Total 0.9 mg/dL (0.2-1.3); Blood Urea Nitrogen 6 mg/dL (7-17); Calcium 8.7 mg/dL (8.4-10.2); Carbon Dioxide 31 mmol/L (22-30); Chloride 102 mmol/L (98-107); Estimated CRCL calculation 65 ml/min; Estimated Glomerular Filt Rate > 60; Glucose 83 mg/dL (65-110); Lipase 62 U/L (23-300); Potassium 3.7 mmol/L (3.4-5.0); Sodium 136 mmol/L (137-145)
[2021-06-17 06:40] LABS: Hepatitis B Surface Antigen Negative (Negative)
[2021-06-17 06:46] LABS: HAV RESULT Negative (Negative); Hepatitis B Core IgM Result Negative (Negative)
[2021-06-17 06:58] LABS: Hepatitis C Virus Antibody Negative (Negative)
[2021-06-17] MEDS: PANTOPRAZOLE SODIUM IV 40 MG VIAL IV PUSH (08:26)
--- NOTE | 2021-06-17 08:43 | ECG_ITS ---
Measurements Intervals [place] Rate: 83 P: 56 CT: 137 QRS: 14 QRSD: 81 T: 40 QT: 383 QTc: 451 Interpretive Statements SINUS RHYTHM BORDERLINE T WAVE ABNORMALITY- ANT/INF LEADS BASELINE WANDER- V4-V6 BORDERLINE ECG Electronically Signed On 06-17-2021 9:34:01 SEXOLOGIST by Sae Harper D.O.
--- NOTE | 2021-06-17 10:19 | WPDANESEPPF ---
Anes - Initial Pre Proc Eval Procedure: Operation Date: 06/17/21 10:30 Proposed Procedures p Exploratory Laparotomy, Possible Bowel Resection - Yovany Odonnell DO Date/Time: 06/17/21 10:19 Surgeon: Andriy Santana MD Pre Op Diagnosis: Bowel Obstruction Patient Data Age: 71 Gender: F Height: 1.55 m Weight: 71.4 kg Last Vital Signs Temp 36.8 C 06/17/21 09:39 Pulse 82 06/17/21 09:39 Resp 20 06/17/21 09:39 BP 170/63 H 06/17/21 09:39 Pulse Ox 99 06/17/21 09:39 Allergies Allergy/AdvReac Type Severity Reaction Status Date / Time aspirin AdvReac Mild BLEEDING Verified 06/16/21 10:08 GUMS atorvastatin AdvReac Mild HAND Verified 06/16/21 10:08 MYALGIA simvastatin AdvReac Mild HAND Verified 06/16/21 10:08 MYALGIA Home Medications Medication Instructions Recorded Confirmed Type No Home Medications 05/18/21 06/16/21 History Laboratory Tests 06/16/21 06/17/21 06/17/21 11:10 05:30 05:30 WBC 10.6 K/mm3 H K/mm3 (4.5-10.0) RBC 4.21 M/mm3 M/mm3 (4.2-5.4) Hgb 13.1 g/dL g/dL (12.0-15.0) Hct 40.4 % % (37.0-47.0) MCV 96.0 fl fl (80-100) MCH 31.1 pg pg (26-34) MCHC 32.4 g/dl g/dl (32-36) RDW 13.0 % % (11.5-14.5) Plt Count 247 k/mm3 k/mm3 (150-375) MPV 9.6 fl fl (7.4-10.4) Immature Gran % (Auto) 1.0 % H % (0-0.5) Neut % (Auto) 67.6 % % (45.5-73.1) Lymph % (Auto) 19.5 % % (18.3-44.2) [place] % (Auto) 10.4 % H % (2.6-8.5) Eos % (Auto) 1.0 % % (0-4.4) Baso % (Auto) 0.5 % % (0.2-1.2) Lymph # (Auto) 2.06 K/mm3 K/mm3 (0.9-3.2) [place] # (Auto) 1.1 K/mm3 H K/mm3 (0.1-0.6) Eos # (Auto) 0.1 K/mm3 K/mm3 (0-0.3) Baso # (Auto) 0.1 K/mm3 K/mm3 (0.0-0.1) Abs Immat Gran (auto) 0.11 K/mm3 H K/mm3 (0.00-0.031) Absolute Neuts (auto) 7.1 K/mm3 H K/mm3 (1.3-6.7) Absolute Nucleated RBC 0.0 K/mm3 K/mm3 (0.0-0.012) Nucleated RBC % 0.0 % % (0.0-0.2) Sodium 136 mmol/L L mmol/L (137-145) Potassium 3.7 mmol/L mmol/L (3.4-5.0) Chloride 102 mmol/L mmol/L (98-107) Carbon Dioxide 31 mmol/L H mmol/L (22-30) Anion Gap 3 mmol/L L mmol/L (8-16) BUN 6 mg/dL L D mg/dL (7-17) Creatinine 0.60 mg/dL L mg/dL (0.7-1.0) Estim Creat Clear Calc 65 ml/min ml/min Estimated GFR > 60 (59 - ) Glucose 83 mg/dL mg/dL (65-110) Calcium 8.7 mg/dL mg/dL (8.4-10.2) Total Bilirubin 0.9 mg/dL mg/dL (0.2-1.3) AST 61 U/L H U/L (14-36) ALT 83 U/L H U/L (4-35) Alkaline Phosphatase 110 U/L U/L (38-126) Total Protein 6.0 g/dL L g/dL (6.3-8.2) Albumin 3.8 g/dL g/dL (3.5-5.1) Lipase 62 U/L U/L (23-300) Hepatitis A IgM Ab Hep Bs Antigen Hep B Core IgM Ab Hepatitis C Ab Screen SARS-CoV-2 RNA (RT-PCR) Negative 06/17/21 05:30 WBC RBC Hgb Hct MCV MCH MCHC RDW Plt Count MPV Immature Gran % (Auto) Neut % (Auto) Lymph % (Auto) [place] % (Auto) Eos % (Auto) Baso % (Auto) Lymph # (Auto) [place] # (Auto) Eos # (Auto) Baso # (Auto) Abs Immat Gran (auto) Absolute Neuts (auto) Absolute Nucleated RBC Nucleated RBC % Sodium Potassium Chloride Carbon Dioxide Anion Gap BUN Creatinine Estim Creat Clear Calc Estimated GFR Glucose Calcium Total Bilirubin AST ALT Alkaline Phosphatase Total Protein Albumin Lipase Hepatitis A IgM Ab Negative
[2021-06-17] MEDS: LACTATED RINGERS 1,000 ML 30 ML IV CONT ×3 (10:22→13:20)
--- NOTE | 2021-06-17 10:27 | WPDHPUPDATE1 ---
History and Physical Update Update Date/Time: 06/17/21 10:27 History and Physical has been reviewed, including an updated exam of the patient. There are NO changes in the patient's condition. Risks, benefits, and alternatives have been discussed and questions answered. Patient agrees to proceed with procedure.
[2021-06-17] MEDS: ceFAZolin 2 GM/D5W 50 ML 2 GM/50 ML BAG IVPB (10:37)
[2021-06-17] MEDS: metroNIDAZOLE 500 MG/ISO 100ML 500 MG/100 ML BAG 100 MG IVPB (12:16)
--- NOTE | 2021-06-17 12:28 | PM.IMPN ---
Progress Note: A&P Assessment and Plan (1) Bowel obstruction: Qualifiers: Intestinal obstruction extent: unspecified extent Intestinal obstruction type: unspecified Qualified Code(s): K56.609 - Unspecified intestinal obstruction, unspecified as to partial versus complete obstruction Code(s): K56.609 - Unspecified intestinal obstruction, unspecified as to partial versus complete obstruction Status: Acute Assessment and Plan: Patient discharged on June 14 after being hospitalized for similar symptoms. Upper GI prior to discharge did show mildly dilated mid small bowel consistent with adynamic ileus versus low-grade partial obstruction. She may have a stricture in the small bowel versus adhesions. NG tube in place. Repeat KUB did not show dilated loops of bowel. Continue NPO status. General surgery consulted and appreciate their input. Surgery is being considered. Check EKG to assess risks. (2) Elevated LFTs: Code(s): R79.89 - Other specified abnormal findings of blood chemistry Status: Acute Assessment and Plan: LFTs mildly elevated on admission. Could be viral illness related. Hepatitis panel negative. COVID screen negative. Rt upper quadrant ultrasound was normal. Repeat lipase normal; LFTs this morning improved. (3) Abnormal urinalysis: Code(s): R82.90 - Unspecified abnormal findings in urine Status: Acute Assessment and Plan: UA noted. Suspect this is a contaminated specimen. UCx growing 100-900 CFU of Klebsiella. Very very low colony count and do not feel this is significant. (4) DVT prophylaxis: Code(s): Z29.9 - Encounter for prophylactic measures, unspecified Status: Acute Assessment and Plan: SCDs Subjective Date/time seen: 06/17/21 12:28 Interval history: 71yo female with history of diverticulosis with partial colon resection and recent hospitalization for pSBO returns to the ED for abdominal pain, nausea and vomiting. No problems overnight. Abd pain better overall. No flatus or BMs. No CP or SOB. No n/v. Exam Narrative: AF 98.3 170/63 982 20 99% ra Gen - NARD HEENT - NGT secured Chest - CTA bilaterally, nml RR CV - RRR. S1-S2. Abd - soft, Nondistended, +BS, mild LLQ pain. Ext - no pedal edema Psych - normal mood and affect. Skin - warm and dry. Objective Data Vital Signs Vital Signs: Vital Signs - 24 hr 06/16/21 14:00 06/16/21 20:18 06/16/21 22:00 Temperature 97.2 F L 97.5 F L Pulse Rate 70 70 Respiratory Rate 16 20 Blood Pressure 123/64 149/61 H Pulse Oximetry 98 98 98 06/17/21 06:00 06/17/21 09:39 Temperature 97.2 F L 98.3 F Pulse Rate 71 82 Respiratory Rate 18 20 Blood Pressure 149/58 H 170/63 H Pulse Oximetry 97 99 Intake/Output Intake/Output: Intake & Output 06/14/21 06/15/21 06/16/21 06/17/21 23:59 23:59 23:59 23:59 Intake Total 1999 1150 Output Total 950 700 Balance 1050 450 Meds/Results Medications: Active Medications Generic Name Dose Route Start Last Admin Trade Name Freq PRN Reason Stop Dose Admin Fentanyl Citrate 25 mcg 06/17/21 10:20 Fentanyl Citrate Inj (*Crx) 100 Mcg/2 Ml Vial IV PUSH Q2M PRN Pain Hydromorphone HCl 0.5 mg 06/16/21 04:29 06/16/21 20:38 Hydromorphone Hcl Inj (*Crx) 1 Mg/Ml Syr IV PUSH 0.5 mg Q4H PRN Administration Pain Rated 7-10 Lactated Ringer's 1,000 mls @ 70 mls/hr 06/16/21 04:30 06/17/21 08:29 Lr - Lactated Ringers Iv IV CONT Not Given .[id number] RACIEL Lactated Ringer's 1,000 mls @ 30 mls/hr 06/17/21 10:20 06/17/21 10:22 Lr - Lactated Ringers Iv IV CONT 30 mls/hr .Q24H RACIEL Administration Lactated Ringer's 1,000 mls @ 30 mls/hr 06/17/21 10:20 Lr - Lactated Ringers Iv IV CONT .Q24H RACIEL Metronidazole 500 mg in 100 mls @ 100 mls/hr 06/17/21 12:16 06/17/21 12:18 Flagyl 500 Mg/Iso Soln 100 Ml IVPB 06/17/21 13:15 Infused ONCE ONE Infus
--- NOTE | 2021-06-17 12:57 | W.PM.PROC2 ---
Procedure Note - Detailed Date of Procedure 06/17/21 Pre-op Diagnosis Small-bowel obstruction Post-op Diagnosis same Procedure Performed 1. Exploratory laparotomy with extensive adhesiolysis 2. Small-bowel resection with lyfx-wt-izic anastomosis (jejunal resection with jejunoileal anastomosis) Surgeon Yovany Odonnell, DO Anesthesia general Indications This is a 71-year-old woman who presented to the emergency department with abdominal pain with nausea and vomiting. She was found to have evidence a small-bowel obstruction. She has a previous history of hand assisted laparoscopic sigmoid colectomy for diverticulitis with abscess. She also had a vaginal hysterectomy and laparoscopic bilateral salpingo-oophorectomy. She had symptoms about 1 week ago and was admitted for several days. A small-bowel follow-through showed slightly dilated small bowel but eventual passage of contrast into the colon. She was able to tolerate a diet and was discharged home but then she returned to the hospital [address] showed evidence of persistent small-bowel obstruction. Discussions were made with the patient about the findings and decision was made to proceed with exploratory laparotomy with possible small bowel resection. Findings Exploratory laparotomy was performed. Patient was found to have extensive lower abdominal adhesions including omentum, small bowel, and the descending colon. Total operating time was 105 minutes and about 80 minutes of this time was spent performing adhesiolysis. There was also about 500 mL of blood loss which is about 5-10 times more blood loss than expected for a less complicated procedure. Most of the bleeding was coming from omentum and the mesentery as the adhesiolysis was performed. There was a section of the small bowel that appeared ischemic and had very thin wall. It did tear easily in this location with adhesiolysis. The enterotomy was closed with 3-0 silk sutures temporarily to prevent spillage of enteric contents. This tear was inherent to the nature of the procedure and the disease process. The section of the small bowel that had extensive adhesions and appeared slightly ischemic was resected. This appeared to be at the distal jejunum. Once the section of jejunum was resected, I then performed a [id number] jejunoileal anastomosis. The remainder of the small bowel was run from the ligament of Treitz to the ileocecal valve. No further adhesions were noted and all the bowel appeared healthy and viable. The entire colon was also carefully inspected and appeared healthy and viable. Description of Procedure Procedure as well as risks, benefits, and alternatives were discussed with the patient. Written consent was obtained and placed in chart prior to procedure. Patient was brought back to surgical suite. She was placed supine on operating table. Time-out was done to confirm patient and procedure. She was then intubated by the anesthesia department. Her abdomen was prepped and draped in sterile fashion using chlorhexidine prep. A 15 cm vertical midline incision was made using a 10 blade scalpel extending from just above the umbilicus down towards the pubic bone. Electrocautery was used for hemostasis and for dissection through subcutaneous tissue. The linea alba was then incised with electrocautery and then the peritoneum was also incised with electrocautery. The abdomen was entered and was carefully inspected. Careful adhesiolysis was performed using blunt dissection and electrocautery initially on the omentum. I was then able to take down most of the omental adhesions to the abdominal wall and this allowed me to then inspect the small bowel just deep to it. There were extensive small bowel adhesions that took time to take down using Metzenbaum scissors and careful blunt dissection. A segment of the small bowel appeared ischemic and had a very thin wall. As the adhesions were take down around the segment there di
--- NOTE | 2021-06-17 13:37 | SUR.PHASEI ---
Simple mask removed at 1336.
[2021-06-17] MEDS: fentaNYL CITRATE INJ (*CRX) 100 MCG/2 ML VIAL 25 MCG IV PUSH (14:10)
[2021-06-17] MEDS: LACTATED RINGERS 1,000 ML 150 ML IV CONT ×2 (16:00→23:38)
[2021-06-17] MEDS: HYDROmorphone HCL INJ (*CRX) 1 MG/ML SYR IV PUSH (18:24)
[2021-06-18 00:17] VITALS: BP 118/47; PULSE 95; RESP 16; TEMP 36.5; O2SAT 94
[2021-06-18 04:17] VITALS: BP 125/46; PULSE 91; RESP 16; TEMP 36.7; O2SAT 94
[2021-06-18 06:16] LABS: Hematocrit 33.1 % (37.0-47.0); Hemoglobin 10.8 g/dL (12.0-15.0); Mean Corpuscular HGB Conc 32.6 g/dl (32-36); Mean Corpuscular Hemoglobin 31.4 pg (26-34); Mean Corpuscular Volume 96.2 fl (80-100); Mean Platelet Volume 10.3 fl (7.4-10.4); Platelet Count Result 258 k/mm3 (150-375); Red Blood Count 3.44 M/mm3 (4.2-5.4); White Blood Count 16.7 K/mm3 (4.5-10.0)
[2021-06-18 06:21] LABS: Alanine Aminotransferase 45 U/L (4-35); Alkaline Phosphatase 71 U/L (38-126); Anion Gap 3 mmol/L (8-16); Aspartate Amino Transferase 31 U/L (14-36); Bilirubin,Total 1.1 mg/dL (0.2-1.3); Blood Urea Nitrogen 9 mg/dL (7-17); Calcium 7.9 mg/dL (8.4-10.2); Carbon Dioxide 26 mmol/L (22-30); Chloride 103 mmol/L (98-107); Estimated CRCL calculation 50 ml/min; Estimated Glomerular Filt Rate > 60; Glucose 124 mg/dL (65-110); Potassium 3.4 mmol/L (3.4-5.0); Sodium 132 mmol/L (137-145)
[2021-06-18] MEDS: LACTATED RINGERS 1,000 ML 150 ML IV CONT (06:42)
[2021-06-18] MEDS: ENOXAPARIN 40 MG/0.4 ML SYRINGE SUB-Q (08:11)
[2021-06-18] MEDS: PANTOPRAZOLE SODIUM IV 40 MG VIAL IV PUSH (08:11)
[2021-06-18 08:17] VITALS: BP 124/50; PULSE 92; RESP 16; TEMP 36.4; O2SAT 94
--- NOTE | 2021-06-18 10:30 | PM.PNGS ---
Progress Note: A&P Assessment and Plan (1) Small bowel obstruction: Code(s): K56.609 - Unspecified intestinal obstruction, unspecified as to partial versus complete obstruction Status: Acute Assessment and Plan: Await return of bowel function Will change Dilaudid to Morphine due to side effects Continue Zosyn 1-2 more days due to minor spillage of enteric contents. Increase activity, Mckinley out tomorrow Subjective Subjective Date/Time Seen: 06/18/21 10:30 Interval history: Pain controlled but patient says Dilaudid was making her hallucinate. No flatus or BM yet. Exam GI: Inspection: incision (dressing dry) GI Palp: Yes Tenderness to palpation present (GI) (incisional) Auscultation: Hypoactive bowel sounds present Objective Data Vital Signs Vital Signs: Vital Signs - 24 hr 06/17/21 12:58 06/17/21 13:05 06/17/21 13:10 Temperature 36.5 C Pulse Rate 99 85 89 Respiratory Rate 14 14 14 Blood Pressure 73/40 L 143/48 H 124/52 L Pulse Oximetry 96 98 100 06/17/21 13:25 06/17/21 13:40 06/17/21 13:55 Temperature Pulse Rate 98 98 99 Respiratory Rate 16 16 16 Blood Pressure 94/53 L 100/47 L 119/45 L Pulse Oximetry 98 93 93 06/17/21 14:10 06/17/21 14:25 06/17/21 15:07 Temperature 36.5 C Pulse Rate 96 101 H 101 H Respiratory Rate 16 14 16 Blood Pressure 120/50 L 114/53 L 114/45 L Pulse Oximetry 93 94 94 06/17/21 15:17 06/17/21 16:17 06/17/21 20:17 Temperature 36.4 C 36.5 C 36.9 C Pulse Rate 110 H 102 H 107 H Respiratory Rate 16 14 16 Blood Pressure 97/78 L 117/42 L 111/50 L Pulse Oximetry 93 93 94 06/18/21 00:17 06/18/21 04:17 06/18/21 08:17 Temperature 36.5 C 36.7 C 36.4 C Pulse Rate 95 91 92 Respiratory Rate 16 16 16 Blood Pressure 118/47 L 125/46 L 124/50 L Pulse Oximetry 94 94 94 Intake/Output Intake/Output: Intake & Output 06/15/21 06/16/21 06/17/21 06/18/21 23:59 23:59 23:59 23:59 Intake Total 1999 3300 1200 Output Total 950 1490 1000 Balance 1050 1810 200 Meds/Results Medications: Active Medications Generic Name Dose Route Start Last Admin Trade Name Freq PRN Reason Stop Dose Admin Enoxaparin Sodium 40 mg 06/18/21 09:00 06/18/21 08:11 Enoxaparin 40 Mg/0.4 Ml Syringe SUB-Q 40 mg DAILY RACIEL Administration Acetaminophen 1,000 mg in 100 mls @ 400 mls/hr 06/17/21 18:00 06/18/21 06:18 Ofirmev 1,000 Mg Ivpb IVPB 06/18/21 16:59 Infused Q6HR RACIEL Infusion Piperacillin/Tazobactam/Dextrose 3.375 gm in 50 mls @ 100 mls/hr 06/17/21 16:00 06/18/21 07:09 Zosyn 3.375 Gm/D5w 50ml Pm IVPB Infused Q6HR RACIEL Infusion Ondansetron HCl 4 mg 06/16/21 04:29 06/16/21 06:44 Ondansetron Inj 4 Mg/2 Ml Vial IV PUSH 4 mg Q4H PRN Administration Nausea Pantoprazole Sodium 40 mg 06/16/21 09:00 06/18/21 08:11 Pantoprazole Sodium Iv 40 Mg Vial IV PUSH 40 mg QAM RACIEL Administration Phenol 1 spray 06/16/21 20:17 06/16/21 20:35 Phenol/Sod Pheno Cerrillos Hendrix (*Bkc) MUCOUS MEM 1 spray PRN PRN Administration Sore Throat Radiology Results: ITS Impressions Abdomen/Pelvis CT 06/16/21 07:06 IMPRESSION: 1. Small bowel obstruction with transition point in the lower abdomen at the midline. Upper Quadrant Ultrasound 06/16/21 11:26 IMPRESSION: 1. Normal right upper quadrant ultrasound. Abdomen X-Ray 06/17/21 09:31 IMPRESSION: 1. No free intraperitoneal gas or dilated gas-filled loops of bowel to suggest obstruction. 2. Nasogastric tube in the stomach. Labs Labs: Laboratory Results - last 24 hr 06/18/21 06/18/21 05:19 05:19 WBC 16.7 H RBC 3.44 L Hgb 10.8 L Hct 33.1 L MCV 96.2 MCH 31.4 MCHC 32.6 RDW 13.0 Plt Count 258 MPV 10.3 Sodium 132 L Potassium 3.4 Chloride 103 Carbon Dioxide 26 Anion Gap 3 L BUN 9 Creatinine 0.80 Estim Creat Clear Calc 50 Estimated GFR > 60 Glucose 124 H Calcium 7.9 L Total Bilirubin 1.1 AST
[2021-06-18] MEDS: POTASSIUM CHLORIDE INJ 10 MEQ in DEXTROSE 5%/0.45% SOD CHL 1,000 ML 100 MEQ IV CONT ×2 (11:59→23:10)
[2021-06-18 12:20] VITALS: BP 124/52; PULSE 92; RESP 16; TEMP 36.4; O2SAT 95
--- NOTE | 2021-06-18 13:14 | PM.IMPN ---
Progress Note: A&P Assessment and Plan (1) Bowel obstruction: Qualifiers: Intestinal obstruction extent: unspecified extent Intestinal obstruction type: unspecified Qualified Code(s): K56.609 - Unspecified intestinal obstruction, unspecified as to partial versus complete obstruction Code(s): K56.609 - Unspecified intestinal obstruction, unspecified as to partial versus complete obstruction Status: Acute Assessment and Plan: Patient discharged on June 14 after being hospitalized for similar symptoms. Upper GI prior to discharge did show mildly dilated mid small bowel consistent with adynamic ileus versus low-grade partial obstruction. Patient returns with similar symptoms with CT scan showing SBO with transition point in the lower abdomen at the midline. She was seen by [facility] and underwent exploratory laparotomy with extensive adhesiolysis and a SB resection with [id number] anastomosis (jejunal resection with jejunoileal anastomosis). NG tube in place. Continue NPO status. Abx started. Awaiting the return of bowel function. Continue routine post-operative care per [facility]. General surgery following and appreciate their input. (2) Elevated LFTs: Code(s): R79.89 - Other specified abnormal findings of blood chemistry Status: Acute Assessment and Plan: LFTs mildly elevated on admission. Could be viral illness related. Hepatitis panel negative. COVID screen negative. Rt upper quadrant ultrasound was normal. Lipase normal. LFTs improving (3) Abnormal urinalysis: Code(s): R82.90 - Unspecified abnormal findings in urine Status: Acute Assessment and Plan: UA noted. Suspect this is a contaminated specimen. UCx growing 100-900 CFU of Klebsiella. Very very low colony count and do not feel this is significant or requiring abx. (4) DVT prophylaxis: Code(s): Z29.9 - Encounter for prophylactic measures, unspecified Status: Acute Assessment and Plan: Lovenox Subjective Date/time seen: 06/18/21 13:14 Interval history: 71yo female with history of diverticulosis with partial colon resection and recent hospitalization for pSBO returns to the ED for abdominal pain, nausea and vomiting. Patient take to surgery yesterday. She is having abdominal pain this morning but tolerable. No CP. No flatus or BMs. Exam Narrative: AF 97.6 124/50 92 16 94% ra Gen - NARD HEENT - NGT secured Chest - lungs clear anteriorly. CV - RRR, S1/S2 Abd - soft, +BS, midline dressing clean and dry. very sensitive to touch with guarding Ext - no pedal edema Psych - awake but somnolent Skin - warm and dry. Objective Data Vital Signs Vital Signs: Vital Signs - 24 hr 06/17/21 13:25 06/17/21 13:40 06/17/21 13:55 Temperature Pulse Rate 98 98 99 Respiratory Rate 16 16 16 Blood Pressure 94/53 L 100/47 L 119/45 L Pulse Oximetry 98 93 93 06/17/21 14:10 06/17/21 14:25 06/17/21 15:07 Temperature 97.7 F Pulse Rate 96 101 H 101 H Respiratory Rate 16 14 16 Blood Pressure 120/50 L 114/53 L 114/45 L Pulse Oximetry 93 94 94 06/17/21 15:17 06/17/21 16:17 06/17/21 20:17 Temperature 97.6 F 97.7 F 98.4 F Pulse Rate 110 H 102 H 107 H Respiratory Rate 16 14 16 Blood Pressure 97/78 L 117/42 L 111/50 L Pulse Oximetry 93 93 94 06/18/21 00:17 06/18/21 04:17 06/18/21 08:17 Temperature 97.7 F 98.0 F 97.6 F Pulse Rate 95 91 92 Respiratory Rate 16 16 16 Blood Pressure 118/47 L 125/46 L 124/50 L Pulse Oximetry 94 94 94 Intake/Output Intake/Output: Intake & Output 06/15/21 06/16/21 06/17/21 06/18/21 23:59 23:59 23:59 23:59 Intake Total 1999 3300 1900 Output Total 950 1490 1000 Balance 1050 1810 900 Meds/Results Medications: Active Medications Generic Name Dose Route Start Last Admin Trade Name Freq PRN Reason Stop Dose Admin Enoxaparin Sodium 40 mg 06/18/21 09:00 06/18/21 08:11 Enoxaparin 40 Mg/0.4 Ml Syringe SUB-Q 4
[2021-06-18 16:17] VITALS: BP 148/51; PULSE 109; RESP 16; TEMP 36.9; O2SAT 94
[2021-06-18] MEDS: MORPHINE SULFATE (*CRX) 2 MG/ML INJ IV PUSH (17:46)
[2021-06-18 20:43] VITALS: BP 129/55; PULSE 83; RESP 18; TEMP 36.7; O2SAT 94
[2021-06-19 04:35] VITALS: BP 143/59; PULSE 102; RESP 20; TEMP 36.6; O2SAT 97
[2021-06-19 05:19] LABS: Hematocrit 31.8 % (37.0-47.0); Hemoglobin 10.5 g/dL (12.0-15.0); Mean Corpuscular Hemoglobin 31.6 pg (26-34); Mean Corpuscular Volume 95.8 fl (80-100); Mean Platelet Volume 9.7 fl (7.4-10.4); Platelet Count Result 255 k/mm3 (150-375); Red Blood Count 3.32 M/mm3 (4.2-5.4); White Blood Count 15.6 K/mm3 (4.5-10.0)
[2021-06-19 05:39] LABS: Anion Gap 3 mmol/L (8-16); Blood Urea Nitrogen 6 mg/dL (7-17); Calcium 8.1 mg/dL (8.4-10.2); Carbon Dioxide 27 mmol/L (22-30); Chloride 104 mmol/L (98-107); Estimated CRCL calculation 65 ml/min; Estimated Glomerular Filt Rate > 60; Glucose 156 mg/dL (65-110); Potassium 3.3 mmol/L (3.4-5.0); Sodium 134 mmol/L (137-145)
[2021-06-19 08:10] LABS: Glucose Point of Care 135 mg/dl (65-105)
[2021-06-19] MEDS: KCL 20MEQ/0.9% SOD CHL 1,000 ML 100 ML IV CONT ×2 (08:35→19:51)
[2021-06-19] MEDS: PANTOPRAZOLE SODIUM IV 40 MG VIAL IV PUSH (08:35)
[2021-06-19] MEDS: ENOXAPARIN 40 MG/0.4 ML SYRINGE SUB-Q (08:35)
[2021-06-19 10:00] VITALS: BP 138/55; PULSE 90; RESP 18; TEMP 36.4; O2SAT 97
--- NOTE | 2021-06-19 11:20 | PM.IMPN ---
Progress Note: A&P Assessment and Plan (1) Bowel obstruction: Qualifiers: Intestinal obstruction extent: unspecified extent Intestinal obstruction type: unspecified Qualified Code(s): K56.609 - Unspecified intestinal obstruction, unspecified as to partial versus complete obstruction Code(s): K56.609 - Unspecified intestinal obstruction, unspecified as to partial versus complete obstruction Status: Acute Assessment and Plan: Patient discharged on June 14 after being hospitalized for similar symptoms. Upper GI prior to discharge did show mildly dilated mid small bowel consistent with adynamic ileus versus low-grade partial obstruction. Doing well POD #2. (2) Elevated LFTs: Code(s): R79.89 - Other specified abnormal findings of blood chemistry Status: Acute Assessment and Plan: LFTs mildly elevated on admission. Could be viral illness related. Hepatitis panel negative. COVID screen negative. Rt upper quadrant ultrasound was normal. Repeat lipase normal. LFT's improving. (3) Abnormal urinalysis: Code(s): R82.90 - Unspecified abnormal findings in urine Status: Acute Assessment and Plan: UA noted. Suspect this is a contaminated specimen. UCx growing 100-900 CFU of Klebsiella. Very very low colony count and do not feel this is significant. Subjective Date/time seen: 06/19/21 11:20 Interval history: 71yo female with history of diverticulosis with partial colon resection and recent hospitalization for pSBO returned to the ED 2/2 for abdominal pain, nausea and vomiting. Surgery 2/3: 1. Exploratory laparotomy with extensive adhesiolysis 2. Small-bowel resection with tvtz-go-vonw anastomosis (jejunal resection with jejunoileal anastomosis) Do size 5 visit. Incisional pain. Irritation from nasogastric tube. No flatus or stool. No nausea or vomiting. Denied chest pain or shortness of breath. Denied dysuria or abnormal bleeding. Review of Systems Review of Systems: All systems reviewed & are unremarkable except as noted in HPI and below Exam Narrative: Gen - NAD HEENT - NGT in place Chest - lungs clear anteriorly. CV - RRR, S1/S2 NL Abd - soft, hypoactive BS, midline dressing clean and dry. very sensitive to touch with guarding Ext - no pedal edema Psych - Alert. Ox4. Skin - warm and dry. Objective Data Vital Signs Vital Signs: Vital Signs - 24 hr 06/18/21 12:20 06/18/21 16:17 06/18/21 20:43 Temperature 97.6 F 98.4 F 98.1 F Pulse Rate 92 109 H 83 Respiratory Rate 16 16 18 Blood Pressure 124/52 L 148/51 H 129/55 L Pulse Oximetry 95 94 94 06/19/21 04:35 06/19/21 10:00 Temperature 98 F 97.6 F Pulse Rate 102 H 90 Respiratory Rate 20 18 Blood Pressure 143/59 H 138/55 L Pulse Oximetry 97 97 Intake/Output Intake/Output: Intake & Output 06/16/21 06/17/21 06/18/21 06/19/21 23:59 23:59 23:59 23:59 Intake Total 2000 3300 3400 100 Output Total 950 1490 1900 1050 Balance 1050 1810 1500 -950 Meds/Results Medications: Active Medications Generic Name Dose Route Start Last Admin Trade Name Freq PRN Reason Stop Dose Admin Enoxaparin Sodium 40 mg 06/18/21 09:00 06/19/21 08:35 Enoxaparin 40 Mg/0.4 Ml Syringe SUB-Q 40 mg DAILY RACIEL Administration Piperacillin/Tazobactam/Dextrose 3.375 gm in 50 mls @ 100 mls/hr 06/17/21 16:00 06/19/21 05:50 Zosyn 3.375 Gm/D5w 50ml Pm IVPB Infused Q6HR RACIEL Infusion Acetaminophen 1,000 mg in 100 mls @ 400 mls/hr 06/18/21 16:00 Ofirmev 1,000 Mg Ivpb IVPB 06/19/21 15:59 Q6H PRN pain 1-3 Potassium Chloride/Sodium Chloride 1,000 mls @ 100 mls/hr 06/19/21 08:00 06/19/21 08:35 Kcl 20 Meq/Ns IV CONT 100 mls/hr .Q10H RACIEL Administration Morphine Sulfate 2 mg 06/18/21 10:28 06/18/21 17:46 Morphine Sulfate (*Crx) 2 Mg/Ml Inj IV PUSH 2 mg Q2H PRN Administration Pain Rated 4-6 Morphine Sulfate 4 mg 06/18/21 10:28 Morphine
[2021-06-19] MEDS: MORPHINE SULFATE (*CRX) 2 MG/ML INJ IV PUSH ×2 (11:28→18:44)
--- NOTE | 2021-06-19 13:30 | PM.PNGS ---
Progress Note: A&P Assessment and Plan (1) Small bowel obstruction: Code(s): K56.609 - Unspecified intestinal obstruction, unspecified as to partial versus complete obstruction Status: Acute Assessment and Plan: Await return of bowel function Dilaudid changed to Morphine --- Seems to be working well for patient's pain Continue Zosyn 1-2 more days due to minor spillage of enteric contents. Increase activity, Mckinley out. nurse reports patient is tolerating this out and urinating okay. Patient reports no bowel movements yet. Potassium already supplemented by the hospitalist today. Subjective Subjective Date/Time Seen: 06/19/21 13:30 Post Op day: 3 Patient reports: no new complaints, still having pain ( Seems to be incisional in nature), no flatus and no bowel movement Interval history: patient is not nauseated but also not having any bowel function yet. Review of Systems Review of Systems: All systems reviewed & are unremarkable except as noted in HPI and below Constitutional: Constitutional: Denies chills and Denies fever(s) Eyes: Eyes: Denies change in vision ENT: Denies hearing loss, Denies neck pain and Denies sore throat Cardiovascular: Cardiovascular: Denies chest pain and Denies dyspnea Respiratory: Respiratory: Denies cough, Denies dyspnea and Denies wheezing Gastrointestinal: Gastrointestinal: Reports as per HPI Genitourinary: Genitourinary: Denies hematuria and Denies dysuria Musculoskeletal: Musculoskeletal: Denies arthralgias, Denies joint swelling and Denies neck pain Allergic/Immunologic: Allergic/Immunologic: Denies wheezing Exam Const: General: alert; No acute distress Orientation/consciousness: patient oriented x3 Limitations: no limitations HENMT: Head: normocephalic and atraumatic Ears: hearing grossly normal bilaterally General nose exam: Normal external nose present and Normal nares present Mouth: Yes Normal oral and palatal mucosa present and Yes moist mucous membranes Resp: Effort & Inspection: normal respiratory effort and able to speak in complete sentences Auscultation: clear to auscultation bilaterally Percussion: percussion normal GI: Inspection: distended and incision (dressing Removed this date.) Auscultation: Hypoactive bowel sounds present Other: Incision clean and dry with bennie present. There is some dried serosanguineous drainage at the very lower end of the incision on the gauze that was removed and even less superiorly. No obvious erythema or signs of infection. NG still in place with gradually decreasing amount out. Still basically appears like pure bile in the tubing. : General: Yes no CVA tenderness OB/external & speculum: Deferred OB/external & speculum exam Objective Data Vital Signs Vital Signs: Vital Signs - 24 hr 06/18/21 16:17 06/18/21 20:43 06/19/21 04:35 Temperature 36.9 C 36.7 C 36.6 C Pulse Rate 109 H 83 102 H Respiratory Rate 16 18 20 Blood Pressure 148/51 H 129/55 L 143/59 H Pulse Oximetry 94 94 97 06/19/21 10:00 Temperature 36.4 C Pulse Rate 90 Respiratory Rate 18 Blood Pressure 138/55 L Pulse Oximetry 97 Intake/Output Intake/Output: Intake & Output 06/16/21 06/17/21 06/18/21 06/19/21 23:59 23:59 23:59 23:59 Intake Total 2000 3300 3400 150 Output Total 950 1490 1900 1050 Balance 1050 1810 1500 -900 Meds/Results Medications: Active Medications Generic Name Dose Route Start Last Admin Trade Name Freq PRN Reason Stop Dose Admin Enoxaparin Sodium 40 mg 06/18/21 09:00 06/19/21 08:35 Enoxaparin 40 Mg/0.4 Ml Syringe SUB-Q 40 mg DAILY RACIEL Administration Piperacillin/Tazobactam/Dextrose 3.375 gm in 50 mls @ 100 mls/hr 06/17/21 16:00 06/19/21 12:02 Zosyn 3.375 Gm/D5w 50ml Pm IVPB Infused Q6HR RACIEL Infusion Acetaminophen 1,000 mg in 100 mls @ 400 mls/hr 06/18/21 16:00 Ofirmev 1,000 Mg Ivpb IVPB 06/19/21 15:59 Q6H PRN pain 1-3 Potassium Chlor
[2021-06-19 14:00] VITALS: BP 133/59; PULSE 87; RESP 18; TEMP 36.5; O2SAT 97
[2021-06-19 20:15] VITALS: BP 152/68; PULSE 92; RESP 17; TEMP 36.4; O2SAT 98
[2021-06-20] MEDS: MORPHINE SULFATE (*CRX) 2 MG/ML INJ IV PUSH ×3 (01:56→22:38)
[2021-06-20 05:20] VITALS: BP 147/66; PULSE 88; RESP 18; TEMP 36.3; O2SAT 98
[2021-06-20] MEDS: KCL 20MEQ/0.9% SOD CHL 1,000 ML 100 ML IV CONT (05:27)
[2021-06-20 05:48] LABS: Basophils Absolute Auto 0.1 K/mm3 (0.0-0.1); Basophils Percent Auto 0.4 % (0.2-1.2); Eosinophils Absolute Auto 0.2 K/mm3 (0-0.3); Hematocrit 33.7 % (37.0-47.0); Hemoglobin 10.7 g/dL (12.0-15.0); Immature Granulocyte Absolute 0.19 K/mm3 (0.00-0.031); Immature Granulocyte Percent A 1.3 % (0-0.5); Lymphocytes Absolute Auto 1.57 K/mm3 (0.9-3.2); Lymphocytes Percent Auto 10.7 % (18.3-44.2); Mean Corpuscular HGB Conc 31.8 g/dl (32-36); Mean Corpuscular Hemoglobin 31.1 pg (26-34); Mean Platelet Volume 9.9 fl (7.4-10.4); Monocytes Absolute Auto 1.1 K/mm3 (0.1-0.6); Monocytes Percent Auto 7.6 % (2.6-8.5); Neutrophils Absolute Auto 11.6 K/mm3 (1.3-6.7); Platelet Count Result 286 k/mm3 (150-375); Red Blood Count 3.44 M/mm3 (4.2-5.4); Red Cell Distribution Width 12.9 % (11.5-14.5); White Blood Count 14.6 K/mm3 (4.5-10.0)
[2021-06-20 06:01] LABS: Alanine Aminotransferase 33 U/L (4-35); Albumin Level 3.2 g/dL (3.5-5.1); Alkaline Phosphatase 97 U/L (38-126); Anion Gap 5 mmol/L (8-16); Aspartate Amino Transferase 27 U/L (14-36); Bilirubin,Total 0.6 mg/dL (0.2-1.3); Blood Urea Nitrogen 4 mg/dL (7-17); Calcium 8.3 mg/dL (8.4-10.2); Carbon Dioxide 23 mmol/L (22-30); Chloride 106 mmol/L (98-107); Estimated CRCL calculation 65 ml/min; Estimated Glomerular Filt Rate > 60; Glucose 84 mg/dL (65-110); Magnesium 2.2 mg/dL (1.6-2.3); Potassium 3.7 mmol/L (3.4-5.0); Sodium 134 mmol/L (137-145)
[2021-06-20] MEDS: PANTOPRAZOLE SODIUM IV 40 MG VIAL IV PUSH (08:20)
[2021-06-20] MEDS: ENOXAPARIN 40 MG/0.4 ML SYRINGE SUB-Q (08:20)
--- NOTE | 2021-06-20 11:01 | PM.IMPN ---
Progress Note: A&P Assessment and Plan (1) Bowel obstruction: Qualifiers: Intestinal obstruction extent: unspecified extent Intestinal obstruction type: unspecified Qualified Code(s): K56.609 - Unspecified intestinal obstruction, unspecified as to partial versus complete obstruction Code(s): K56.609 - Unspecified intestinal obstruction, unspecified as to partial versus complete obstruction Status: Acute Assessment and Plan: Patient discharged on June 14 after being hospitalized for similar symptoms. Upper GI prior to discharge did show mildly dilated mid small bowel consistent with adynamic ileus versus low-grade partial obstruction. Doing well POD #3. (2) Elevated LFTs: Code(s): R79.89 - Other specified abnormal findings of blood chemistry Status: Acute Assessment and Plan: LFTs mildly elevated on admission. Could be viral illness related. Hepatitis panel negative. COVID screen negative. Rt upper quadrant ultrasound was normal. Repeat lipase normal. Resolved. (3) Abnormal urinalysis: Code(s): R82.90 - Unspecified abnormal findings in urine Status: Acute Assessment and Plan: UA noted. Suspect this is a contaminated specimen. UCx growing 100-900 CFU of Klebsiella. Very very low colony count and do not feel this is significant. Subjective Date/time seen: 06/20/21 11:01 Interval history: 71yo female with history of diverticulosis with partial colon resection and recent hospitalization for pSBO returned to the ED 2/ for abdominal pain, nausea and vomiting. Surgery 2/3: 1. Exploratory laparotomy with extensive adhesiolysis 2. Small-bowel resection with [id number]-[id number] anastomosis (jejunal resection with jejunoileal anastomosis) 06/20 visit. Incisional pain mild at rest, moderate with movement. NG output decreasing. No flatus or stool. No nausea or vomiting. Denied chest pain or shortness of breath. Denied dysuria or abnormal bleeding. Review of Systems Review of Systems: All systems reviewed & are unremarkable except as noted in HPI and below Exam Narrative: Gen - NAD HEENT - NGT in place Chest - lungs clear anteriorly. CV - RRR, S1/S2 NL Abd - soft, hypoactive BS, midline dressing clean and dry. very sensitive to touch with guarding Ext - no pedal edema Psych - Alert. Ox4. Skin - warm and dry. Objective Data Vital Signs Vital Signs: Vital Signs - 24 hr 06/19/21 14:00 06/19/21 20:15 06/20/21 05:20 Temperature 97.7 F 97.6 F 97.3 F L Pulse Rate 87 92 88 Respiratory Rate 18 17 18 Blood Pressure 133/59 L 152/68 H 147/66 H Pulse Oximetry 97 98 98 Intake/Output Intake/Output: Intake & Output 06/17/21 06/18/21 06/19/21 06/20/21 23:59 23:59 23:59 23:59 Intake Total 3300 3400 1270 1100 Output Total 1490 1900 1850 350 Balance 1810 1500 -580 750 Meds/Results Medications: Active Medications Generic Name Dose Route Start Last Admin Trade Name Freq PRN Reason Stop Dose Admin Enoxaparin Sodium 40 mg 06/18/21 09:00 06/20/21 08:20 Enoxaparin 40 Mg/0.4 Ml Syringe SUB-Q 40 mg DAILY RACIEL Administration Piperacillin/Tazobactam/Dextrose 3.375 gm in 50 mls @ 100 mls/hr 06/17/21 16:00 06/20/21 06:08 Zosyn 3.375 Gm/D5w 50ml Pm IVPB Infused Q6HR RACIEL Infusion Potassium Chloride/Sodium Chloride 1,000 mls @ 100 mls/hr 06/19/21 08:00 06/20/21 05:27 Kcl 20 Meq/Ns IV CONT 100 mls/hr .Q10H RACIEL Administration Morphine Sulfate 2 mg 06/18/21 10:28 06/20/21 01:56 Morphine Sulfate (*Crx) 2 Mg/Ml Inj IV PUSH 2 mg Q2H PRN Administration Pain Rated 4-6 Morphine Sulfate 4 mg 06/18/21 10:28 Morphine Sulfate (*Crx) 4 Mg/Ml Inj IV PUSH Q2H PRN Pain Rated 7-10 Ondansetron HCl 4 mg 06/16/21 04:29 06/16/21 06:44 Ondansetron Inj 4 Mg/2 Ml Vial IV PUSH 4 mg Q4H PRN Administration Nausea Pantoprazole Sodium 40 mg 06/16/21 09:00 06/20/21 08:20 Pantoprazole
[2021-06-20 14:43] VITALS: BP 142/60; PULSE 77; RESP 18; TEMP 36.2; O2SAT 98
--- NOTE | 2021-06-20 15:20 | PM.PNGS ---
Progress Note: A&P Assessment and Plan (1) Small bowel obstruction: Code(s): K56.609 - Unspecified intestinal obstruction, unspecified as to partial versus complete obstruction Status: Acute Assessment and Plan: Await return of bowel function ( no BM yet) will give 1 dose of milk of Mag down the NG tube and clamp NG for 2 hours. Also encouraged patient to be up walking with NG clamped. Dilaudid changed to Morphine --- Seems to be working well for patient's pain WBC still 14,000 today so will continue Zosyn at ;east 1 more day due to minor spillage of enteric contents. Increase activity, Mckinley out. nurse reports patient is tolerating this out and urinating okay. Patient reports no bowel movements yet. Potassium already supplemented by the hospitalist today. Recheck CBC and electrolytes in a.m.. Subjective Subjective Date/Time Seen: 06/20/21 15:20 Post Op day: 3 ( Status post lysis of adhesions and small-bowel resection) Patient reports: no new complaints, flatus and no bowel movement Interval history: patient has had Mckinley out and is urinating okay. Believe she has passed little bit of gas but not a lot. Patient and nurse date no bowel movements yet. Patient is sitting up in chair but not walking hallways yet. Review of Systems Review of Systems: All systems reviewed & are unremarkable except as noted in HPI and below Constitutional: Constitutional: Denies chills and Denies fever(s) Eyes: Eyes: Denies change in vision ENT: Denies hearing loss, Denies neck pain and Denies sore throat Cardiovascular: Cardiovascular: Denies chest pain and Denies dyspnea Respiratory: Respiratory: Denies cough, Denies dyspnea and Denies wheezing Gastrointestinal: Gastrointestinal: Reports as per HPI and Denies nausea Genitourinary: Genitourinary: Denies hematuria and Denies dysuria Musculoskeletal: Musculoskeletal: Denies arthralgias, Denies joint swelling and Denies neck pain Allergic/Immunologic: Allergic/Immunologic: Denies wheezing Exam Const: General: alert; No acute distress Orientation/consciousness: patient oriented x3 Limitations: no limitations HENMT: Head: normocephalic and atraumatic Ears: hearing grossly normal bilaterally General nose exam: Normal external nose present and Normal nares present Mouth: Yes Normal oral and palatal mucosa present and Yes moist mucous membranes Eyes: General: appearance normal, both eyes and all related structures Conjunctivae: conjunctivae normal Sclera: sclerae normal Pupils: Equal, round and reactive pupils present EOM: EOMs intact bilaterally Neck: Neck: normal visual inspection, full ROM, no lymphadenopathy, supple and no JVD Lymphatic: no lymphadenopathy noted Chest: Chest palpation & inspection: normal inspection of the chest Resp: Auscultation: clear to auscultation bilaterally GI: Inspection: distended and incision (dressing -- Clean and dry (recently changed by nurse).) Auscultation: Hypoactive bowel sounds present Other: Incision clean and dry with bennie present. seen today as nurse change the dressing. She reports no signs of infection. NG still in place with gradually decreasing amount out. ( 150 cc out both the last 212 hour shifts) now less bilious and more clear fluid in the tubing. : General: Yes no CVA tenderness OB/external & speculum: Deferred OB/external & speculum exam Back/Spine/Pelvis: Back: no CVA tenderness Objective Data Vital Signs Vital Signs: Vital Signs - 24 hr 06/19/21 20:15 06/20/21 05:20 06/20/21 14:43 Temperature 36.4 C 36.3 C L 36.2 C L Pulse Rate 92 88 77 Respiratory Rate 17 18 18 Blood Pressure 152/68 H 147/66 H 142/60 H Pulse Oximetry 98 98 98 Intake/Output Intake/Output: Intake & Output 06/17/21 06/18/21 06/19/21 06/20/21 23:59 23:59 23:59 23:59 Intake Total 3300 3400 1270 1150 Output Total 1490 1900 1850 350 Balance 1810 1500 -580 800 Meds/Results
[2021-06-20] MEDS: MAGNESIUM HYDROXIDE SUSP 30 ML UDC FEED TUBE (17:18)
[2021-06-20] MEDS: KCL 20MEQ/0.9% SOD CHL 1,000 ML 80 ML IV CONT (17:20)
[2021-06-20 20:00] VITALS: BP 133/55; PULSE 86; RESP 20; TEMP 36.3; O2SAT 98
[2021-06-21] VITALS: BP 129/55; PULSE 86; RESP 18; TEMP 36.2; O2SAT 97
[2021-06-21 04:39] VITALS: BP 137/54; PULSE 82; RESP 20; TEMP 36.2; O2SAT 98
[2021-06-21] MEDS: KCL 20MEQ/0.9% SOD CHL 1,000 ML 80 ML IV CONT (06:44)
[2021-06-21] MEDS: ENOXAPARIN 40 MG/0.4 ML SYRINGE SUB-Q (08:35)
[2021-06-21] MEDS: PANTOPRAZOLE SODIUM IV 40 MG VIAL IV PUSH (08:35)
--- NOTE | 2021-06-21 11:33 | P.PNGS_ITS ---
Progress Note: A&P Assessment and Plan (1) Small bowel obstruction: Code(s): K56.609 - Unspecified intestinal obstruction, unspecified as to partial versus complete obstruction Status: Acute Assessment and Plan: * Clear liquids today, will plan to advance tomorrow if doing well. * Increase activity * Stop IV fluids Subjective Subjective Date/Time Seen: 06/21/21 11:33 Interval history: Had a BM this AM. NG removed. Tolerated clear liquids for breakfast. No bloating or nausea. No fevers. Exam GI: Inspection: non-distended and incision (intact with bennie) GI Palp: Yes Soft to palpation and Yes Tenderness to palpation present (GI) (incisional) Auscultation: normal bowel sounds Objective Data Vital Signs Vital Signs: Vital Signs - 24 hr 06/20/21 14:43 06/20/21 20:00 06/21/21 00:00 Temperature 36.2 C L 36.3 C L 36.2 C L Pulse Rate 77 86 86 Respiratory Rate 18 20 18 Blood Pressure 142/60 H 133/55 L 129/55 L Pulse Oximetry 98 98 97 06/21/21 04:39 Temperature 36.2 C L Pulse Rate 82 Respiratory Rate 20 Blood Pressure 137/54 L Pulse Oximetry 98 Intake/Output Intake/Output: Intake & Output 06/18/21 06/19/21 06/20/21 06/21/21 23:59 23:59 23:59 23:59 Intake Total 3400 1270 2200 1100 Output Total 1900 1850 1100 700 Balance 1500 -580 1100 400 Meds/Results Medications: Active Medications Generic Name Dose Route Start Last Admin Trade Name Freq PRN Reason Stop Dose Admin Enoxaparin Sodium 40 mg 06/18/21 09:00 06/21/21 08:35 Enoxaparin 40 Mg/0.4 Ml Syringe SUB-Q 40 mg DAILY RACIEL Administration Piperacillin/Tazobactam/Dextrose 3.375 gm in 50 mls @ 100 mls/hr 06/17/21 16:00 06/21/21 07:18 Zosyn 3.375 Gm/D5w 50ml Pm IVPB Infused Q6HR RACIEL Infusion Morphine Sulfate 2 mg 06/18/21 10:28 06/20/21 22:38 Morphine Sulfate (*Crx) 2 Mg/Ml Inj IV PUSH 2 mg Q2H PRN Administration Pain Rated 4-6 Morphine Sulfate 4 mg 06/18/21 10:28 Morphine Sulfate (*Crx) 4 Mg/Ml Inj IV PUSH Q2H PRN Pain Rated 7-10 Ondansetron HCl 4 mg 06/16/21 04:29 06/16/21 06:44 Ondansetron Inj 4 Mg/2 Ml Vial IV PUSH 4 mg Q4H PRN Administration Nausea Pantoprazole Sodium 40 mg 06/16/21 09:00 06/21/21 08:35 Pantoprazole Sodium Iv 40 Mg Vial IV PUSH 40 mg QAM RACIEL Administration Phenol 1 spray 06/16/21 20:17 06/16/21 20:35 Phenol/Sod Pheno [place]rix (*Bkc) MUCOUS MEM 1 spray PRN PRN Administration Sore Throat Radiology Results: ITS Impressions Abdomen/Pelvis CT 06/16/21 07:06 IMPRESSION: 1. Small bowel obstruction with transition point in the lower abdomen at the midline. Upper Quadrant Ultrasound 06/16/21 11:26 IMPRESSION: 1. Normal right upper quadrant ultrasound. Abdomen X-Ray 06/17/21 09:31 IMPRESSION: 1. No free intraperitoneal gas or dilated gas-filled loops of bowel to suggest obstruction. 2. Nasogastric tube in the stomach. Quality VTE Prophylaxis VTE prophylaxis: pharmacologic ordered (enoxaparin)
--- NOTE | 2021-06-21 14:24 | PM.IMPN ---
Progress Note: A&P Assessment and Plan (1) Bowel obstruction: Qualifiers: Intestinal obstruction extent: unspecified extent Intestinal obstruction type: unspecified Qualified Code(s): K56.609 - Unspecified intestinal obstruction, unspecified as to partial versus complete obstruction Code(s): K56.609 - Unspecified intestinal obstruction, unspecified as to partial versus complete obstruction Status: Acute Assessment and Plan: Patient discharged on June 14 after being hospitalized for similar symptoms. Upper GI prior to discharge did show mildly dilated mid small bowel consistent with adynamic ileus versus low-grade partial obstruction. She was toelrating oral intake. Patient returns with similar symptoms with CT scan showing SBO with transition point in the lower abdomen at the midline. NG tube placed and GenSurg consulted. Patient on 06/17/21 underwent exploratory laparotomy with extensive adhesiolysis and a SB resection with labe-[id number] anastomosis (jejunal resection with jejunoileal anastomosis). Doing well POD #4. NG tube removed today. Bowel function returning. Remains on abx. Stop IV fluids. (2) Elevated LFTs: Code(s): R79.89 - Other specified abnormal findings of blood chemistry Status: Acute Assessment and Plan: LFTs mildly elevated on admission. Could be viral illness related. Hepatitis panel negative. COVID screen negative. Rt upper quadrant ultrasound was normal. Repeat lipase normal. Resolved. (3) Abnormal urinalysis: Code(s): R82.90 - Unspecified abnormal findings in urine Status: Acute Assessment and Plan: UA noted. Suspect this is a contaminated specimen. UCx growing 100-900 CFU of Klebsiella. Very very low colony count and do not feel this is significant. (4) DVT prophylaxis: Code(s): Z29.9 - Encounter for prophylactic measures, unspecified Status: Acute Assessment and Plan: Lovenox Subjective Date/time seen: 06/21/21 14:24 Interval history: 71yo female with history of diverticulosis with partial colon resection and recent hospitalization for pSBO returns to the ED for abdominal pain, nausea and vomiting. Resuming care. Chart reviewed. No issues overnight. Abd pain better. No CP or SOB. NG tube removed today. +BMs. Toelrating diet. No n/v. Exam Narrative: AF 97.1 137/54 82 20 98% ra Gen - NARD Chest - lungs clear anteriorly and in the flanks. CV - RRR, S1/S2 Abd - soft, +BS, midline incision well approximated Ext - trace pedal edema Psych - nml mood and affect Skin - warm and dry. Objective Data Vital Signs Vital Signs: Vital Signs - 24 hr 06/20/21 14:43 06/20/21 20:00 06/21/21 00:00 Temperature 97.2 F L 97.4 F L 97.2 F L Pulse Rate 77 86 86 Respiratory Rate 18 20 18 Blood Pressure 142/60 H 133/55 L 129/55 L Pulse Oximetry 98 98 97 06/21/21 04:39 Temperature 97.1 F L Pulse Rate 82 Respiratory Rate 20 Blood Pressure 137/54 L Pulse Oximetry 98 Intake/Output Intake/Output: Intake & Output 06/18/21 06/19/21 06/20/21 06/21/21 23:59 23:59 23:59 23:59 Intake Total 3400 1270 2200 1760 Output Total 1900 1850 1100 1150 Balance 1500 -580 1100 610 Meds/Results Medications: Active Medications Generic Name Dose Route Start Last Admin Trade Name Freq PRN Reason Stop Dose Admin Enoxaparin Sodium 40 mg 06/18/21 09:00 06/21/21 08:35 Enoxaparin 40 Mg/0.4 Ml Syringe SUB-Q 40 mg DAILY RACIEL Administration Piperacillin/Tazobactam/Dextrose 3.375 gm in 50 mls @ 100 mls/hr 06/17/21 16:00 06/21/21 11:45 Zosyn 3.375 Gm/D5w 50ml Pm IVPB 100 mls/hr Q6HR RACIEL Administration Morphine Sulfate 2 mg 06/18/21 10:28 06/20/21 22:38 Morphine Sulfate (*Crx) 2 Mg/Ml Inj IV PUSH 2 mg Q2H PRN Administration Pain Rated 4-6 Morphine Sulfate 4 mg 06/18/21 10:28 Morphine Sulfate (*Crx) 4 Mg/Ml Inj IV PUSH Q2H PRN Pain Rated 7-10 Ondansetron HCl
[2021-06-21] MEDS: HYDROcodone/acetaminophen (*CRX) 5-325 MG TABLET 1 TAB PO (20:19)
[2021-06-21 22:00] VITALS: BP 159/55; PULSE 83; RESP 20; TEMP 36.8; O2SAT 99
[2021-06-22 05:54] LABS: Hematocrit 36.7 % (37.0-47.0); Hemoglobin 12.2 g/dL (12.0-15.0); Mean Corpuscular HGB Conc 33.2 g/dl (32-36); Mean Corpuscular Hemoglobin 30.6 pg (26-34); Mean Platelet Volume 9.4 fl (7.4-10.4); Platelet Count Result 430 k/mm3 (150-375); Red Blood Count 3.99 M/mm3 (4.2-5.4); Red Cell Distribution Width 12.4 % (11.5-14.5); White Blood Count 9.8 K/mm3 (4.5-10.0)
[2021-06-22 06:00] VITALS: BP 156/67; PULSE 83; RESP 18; TEMP 36.8; O2SAT 97
[2021-06-22 06:05] LABS: Anion Gap 5 mmol/L (8-16); Blood Urea Nitrogen 5 mg/dL (7-17); Calcium 9.1 mg/dL (8.4-10.2); Carbon Dioxide 27 mmol/L (22-30); Chloride 104 mmol/L (98-107); Estimated CRCL calculation 65 ml/min; Estimated Glomerular Filt Rate > 60; Glucose 110 mg/dL (65-110); Potassium 3.7 mmol/L (3.4-5.0); Sodium 136 mmol/L (137-145)
[2021-06-22] MEDS: PANTOPRAZOLE SODIUM IV 40 MG VIAL IV PUSH (08:37)
[2021-06-22] MEDS: ENOXAPARIN 40 MG/0.4 ML SYRINGE SUB-Q (08:37)
--- NOTE | 2021-06-22 09:31 | PM.PNGS ---
Progress Note: A&P Assessment and Plan (1) Small bowel obstruction: Code(s): K56.609 - Unspecified intestinal obstruction, unspecified as to partial versus complete obstruction Status: Acute Assessment and Plan: Continues to improve. Bowels are moving. Advance to full liquids. Increase activity, walk in the halls today. Additional Plan I have discussed the patient's case and plan of care with Dr. Odonnell. Subjective Subjective Date/Time Seen: 06/22/21 09:31 Post Op day: 5 Patient reports: no new complaints, feels better, tolerating liquids well, flatus, bowel movement and afebrile Interval history: Patient seen and examined this morning. She reports feeling well and much better than yesterday. She denies any nausea, vomiting, or bloating. Tolerating clear liquids. Has had 2 bowel movements since yesterday. She is tolerating activity and has walked in her room this morning. No other complaints at this time. Review of Systems Review of Systems: All systems reviewed & are unremarkable except as noted in HPI and below Cardiovascular: Cardiovascular: Reports no additional cardiovascular complaints, Denies chest pain and Denies leg edema Respiratory: Respiratory: Reports no additional respiratory complaints, Denies cough and Denies dyspnea Gastrointestinal: Gastrointestinal: Reports as per HPI and Reports no additional gastrointestinal complaints Exam Const: General: comfortable, no acute distress, alert and awake Orientation/consciousness: patient oriented x3 Resp: Effort & Inspection: normal respiratory effort Auscultation: clear to auscultation bilaterally Cardio: Rate: regular rate Rhythm: regular rhythm GI: Inspection: non-distended and incision (Midline incision clean and dry, no erythema) GI Palp: Yes Soft to palpation, Yes Tenderness to palpation present (GI) (incisional) and No Rebound tenderness present Auscultation: normal bowel sounds Neuro: General: moves all extremities and no focal motor deficits Extrem: General: no clubbing, cyanosis or edema and no calf tenderness Psych: Insight: Good insight present (Psych) Judgement: Good judgement present (Psych) Objective Data Vital Signs Vital Signs: Vital Signs - 24 hr 06/21/21 22:00 06/22/21 06:00 Temperature 98.3 F 98.2 F Pulse Rate 83 83 Respiratory Rate 20 18 Blood Pressure 159/55 H 156/67 H Pulse Oximetry 99 97 Intake/Output Intake/Output: Intake & Output 06/19/21 06/20/21 06/21/21 06/22/21 23:59 23:59 23:59 23:59 Intake Total 1270 2200 2700 1070 Output Total 1850 1100 1950 500 Balance -580 1100 750 570 Meds/Results Medications: Active Medications Generic Name Dose Route Start Last Admin Trade Name Freq PRN Reason Stop Dose Admin Acetaminophen 650 mg 06/21/21 14:32 Acetaminophen 325 Mg Tablet PO Q6H PRN Mild Pain (1-3) or Fever Hydrocodone Bitart/Acetaminophen 1 tab 06/21/21 14:32 06/21/21 20:19 Hydrocodone/Acetaminophen (*Crx) 5-325 Mg Tablet PO 1 tab Q6H PRN Administration Pain Rated 4-6 Enoxaparin Sodium 40 mg 06/18/21 09:00 06/22/21 08:37 Enoxaparin 40 Mg/0.4 Ml Syringe SUB-Q 40 mg DAILY RACIEL Administration Piperacillin/Tazobactam/Dextrose 3.375 gm in 50 mls @ 100 mls/hr 06/17/21 16:00 06/22/21 06:17 Zosyn 3.375 Gm/D5w 50ml Pm IVPB 100 mls/hr Q6HR RACIEL Administration Morphine Sulfate 2 mg 06/21/21 14:33 Morphine Sulfate (*Crx) 2 Mg/Ml Inj IV PUSH Q2H PRN Pain Rated 7-10 Ondansetron HCl 4 mg 06/16/21 04:29 06/16/21 06:44 Ondansetron Inj 4 Mg/2 Ml Vial IV PUSH 4 mg Q4H PRN Administration Nausea Pantoprazole Sodium 40 mg 06/16/21 09:00 06/22/21 08:37 Pantoprazole Sodium Iv 40 Mg Vial IV PUSH 40 mg QAM RACIEL Administration Phenol 1 spray 06/16/21 20:17 06/16/21 20:35 Phenol/Sod Pheno [place] (*Bkc) MUCOUS MEM 1 spray PRN PRN Administration Sore Throat Radiology Results: ITS Imp
[2021-06-22 10:00] VITALS: BP 118/50; PULSE 98; RESP 18; TEMP 36.4; O2SAT 98
--- NOTE | 2021-06-22 13:30 | PM.IMPN ---
Progress Note: A&P Assessment and Plan (1) Bowel obstruction: Qualifiers: Intestinal obstruction extent: unspecified extent Intestinal obstruction type: unspecified Qualified Code(s): K56.609 - Unspecified intestinal obstruction, unspecified as to partial versus complete obstruction Code(s): K56.609 - Unspecified intestinal obstruction, unspecified as to partial versus complete obstruction Status: Acute Assessment and Plan: Patient discharged on June 14 after being hospitalized for similar symptoms. Upper GI prior to discharge did show mildly dilated mid small bowel consistent with adynamic ileus versus low-grade partial obstruction. She was tolerating oral intake. Patient returns with similar symptoms with CT scan showing SBO with transition point in the lower abdomen at the midline. NG tube placed and GenSurg consulted. Patient on 06/17/21 underwent exploratory laparotomy with extensive adhesiolysis and a SB resection with [id number] anastomosis (jejunal resection with jejunoileal anastomosis). Doing well POD #5. Bowel function returning. Abx stopped. Home when okay with GenSurg (2) Elevated LFTs: Code(s): R79.89 - Other specified abnormal findings of blood chemistry Status: Acute Assessment and Plan: LFTs mildly elevated on admission. Could be viral illness related. Hepatitis panel negative. COVID screen negative. Rt upper quadrant ultrasound was normal. Repeat LFTs normal. Resolved. (3) Abnormal urinalysis: Code(s): R82.90 - Unspecified abnormal findings in urine Status: Acute Assessment and Plan: UA noted. Suspect this is a contaminated specimen. UCx growing 100-900 CFU of Klebsiella. Very very low colony count and do not feel this is significant. (4) DVT prophylaxis: Code(s): Z29.9 - Encounter for prophylactic measures, unspecified Status: Acute Assessment and Plan: Lovenox Subjective Date/time seen: 06/22/21 13:30 Interval history: 71yo female with history of diverticulosis with partial colon resection and recent hospitalization for pSBO returns to the ED for abdominal pain, nausea and vomiting. She is having decreasing abd pain. +BMs. Walking in room. Exam Narrative: AF 97.6 118/50 98 18 98% ra Gen - NARD Chest - lungs CTA bilaterally. nml RR CV - RRR, S1/S2 Abd - soft, +BS, midline incision clean/dry/intact Ext - no pedal edema Psych - nml mood and affect Skin - warm and dry. Objective Data Vital Signs Vital Signs: Vital Signs - 24 hr 06/21/21 22:00 06/22/21 06:00 06/22/21 10:00 Temperature 98.3 F 98.2 F 97.6 F Pulse Rate 83 83 98 Respiratory Rate 20 18 18 Blood Pressure 159/55 H 156/67 H 118/50 L Pulse Oximetry 99 97 98 Intake/Output Intake/Output: Intake & Output 06/19/21 06/20/21 06/21/21 06/22/21 23:59 23:59 23:59 23:59 Intake Total 1270 2200 2700 1650 Output Total 1850 1100 1950 500 Balance -580 2113 233 0115 Meds/Results Medications: Active Medications Generic Name Dose Route Start Last Admin Trade Name Freq PRN Reason Stop Dose Admin Acetaminophen 650 mg 06/21/21 14:32 Acetaminophen 325 Mg Tablet PO Q6H PRN Mild Pain (1-3) or Fever Hydrocodone Bitart/Acetaminophen 1 tab 06/21/21 14:32 06/21/21 20:19 Hydrocodone/Acetaminophen (*Crx) 5-325 Mg Tablet PO 1 tab Q6H PRN Administration Pain Rated 4-6 Enoxaparin Sodium 40 mg 06/18/21 09:00 06/22/21 08:37 Enoxaparin 40 Mg/0.4 Ml Syringe SUB-Q 40 mg DAILY RACIEL Administration Morphine Sulfate 2 mg 06/21/21 14:33 Morphine Sulfate (*Crx) 2 Mg/Ml Inj IV PUSH Q2H PRN Pain Rated 7-10 Ondansetron HCl 4 mg 06/16/21 04:29 06/16/21 06:44 Ondansetron Inj 4 Mg/2 Ml Vial IV PUSH 4 mg Q4H PRN Administration Nausea Pantoprazole Sodium 40 mg 06/16/21 09:00 06/22/21 08:37 Pantoprazole Sodium Iv 40 Mg Vial IV PUSH 40 mg QAM RACIEL Administration Ph
[2021-06-22] MEDS: ACETAMINOPHEN 325 MG TABLET 650 MG PO (15:29)
[2021-06-22 20:00] VITALS: BP 135/55; PULSE 77; RESP 18; TEMP 36.6; O2SAT 97
[2021-06-22] MEDS: HYDROcodone/acetaminophen (*CRX) 5-325 MG TABLET 1 TAB PO (21:23)
[2021-06-23 02:00] VITALS: BP 119/50; PULSE 71; RESP 21; TEMP 37.1; O2SAT 100
[2021-06-23 06:00] VITALS: BP 146/61; PULSE 78; RESP 20; TEMP 36.7; O2SAT 98
--- NOTE | 2021-06-23 08:25 | PCNWS ---
Weekly nutritional screen. Patient is tolerating current diet with adequate intake. No weight loss reported. No nutritional needs at this time.
[2021-06-23] MEDS: ENOXAPARIN 40 MG/0.4 ML SYRINGE SUB-Q (08:46)
[2021-06-23] MEDS: PANTOPRAZOLE SODIUM IV 40 MG VIAL IV PUSH (08:46)
[2021-06-23 09:25] VITALS: O2SAT 97
--- NOTE | 2021-06-23 09:33 | PM.PNGS ---
Progress Note: A&P Assessment and Plan (1) Small bowel obstruction: Code(s): K56.609 - Unspecified intestinal obstruction, unspecified as to partial versus complete obstruction Status: Acute Assessment and Plan: Doing well postoperatively. Tolerating a regular diet. Okay to discharge the patient today from our standpoint. Follow up in [address] Odonnell for staple removal. Discussed discharge instructions with the patient and answered questions. Additional Plan I have discussed the patient's case and plan of care with Dr. Odonnell. Subjective Subjective Date/Time Seen: 06/23/21 09:02 Post Op day: 6 Patient reports: feels better, tolerating a regular diet, voiding w/o difficulty, flatus, bowel movement and afebrile Interval history: Patient seen and examined this morning. She reports feeling well today. Incisional pain is well controlled with oral analgesics. She reports this is only primarily painful with movement. Tolerating regular diet. Passing gas today and had another bowel movement yesterday. She is tolerating activity and going to work with PT again this morning to walk in the halls. No other complaints at this time. Patient also states her son is going to be living with her initially when she goes home to help out. Review of Systems Review of Systems: All systems reviewed & are unremarkable except as noted in HPI and below Constitutional: Constitutional: Reports as per HPI, Reports no additional constitutional complaints, Denies chills and Denies fever(s) Cardiovascular: Cardiovascular: Reports no additional cardiovascular complaints, Denies chest pain and Denies leg edema Respiratory: Respiratory: Reports no additional respiratory complaints, Denies cough and Reports dyspnea on exertion (Slight shortness of breath at the end of walking the halls yesterday) Gastrointestinal: Gastrointestinal: Reports as per HPI and Reports no additional gastrointestinal complaints Exam Const: General: alert and awake; No acute distress Orientation/consciousness: patient oriented x3 Resp: Effort & Inspection: normal respiratory effort Auscultation: clear to auscultation bilaterally Cardio: Rate: regular rate Rhythm: regular rhythm GI: Inspection: non-distended and incision (Midline incision clean and dry, no erythema) GI Palp: Yes Soft to palpation, Yes Tenderness to palpation present (GI) (Incisional) and No Guarding due to palpation present (GI) Auscultation: normal bowel sounds Skin: General skin exam: normal color Neuro: General: moves all extremities and no focal motor deficits Extrem: General: normal to inspection and no calf tenderness Psych: Insight: Good insight present (Psych) Judgement: Good judgement present (Psych) Objective Data Vital Signs Vital Signs: Vital Signs - 24 hr 06/22/21 10:00 06/22/21 20:00 06/23/21 02:00 Temperature 97.6 F 97.8 F 98.8 F Pulse Rate 98 77 71 Respiratory Rate 18 18 21 H Blood Pressure 118/50 L 135/55 L 119/50 L Pulse Oximetry 98 97 100 06/23/21 06:00 06/23/21 09:25 Temperature 98.1 F Pulse Rate 78 Respiratory Rate 20 Blood Pressure 146/61 H Pulse Oximetry 98 97 Intake/Output Intake/Output: Intake & Output 06/20/21 06/21/21 06/22/21 06/23/21 23:59 23:59 23:59 23:59 Intake Total 2200 2700 2540 840 Output Total 1100 1950 750 800 Balance 4622 085 2063 40 Meds/Results Medications: Active Medications Generic Name Dose Route Start Last Admin Trade Name Freq PRN Reason Stop Dose Admin Acetaminophen 650 mg 06/21/21 14:32 06/22/21 15:29 Acetaminophen 325 Mg Tablet PO 650 mg Q6H PRN Administration Mild Pain (1-3) or Fever Hydrocodone Bitart/Acetaminophen 1 tab 06/21/21 14:32 06/22/21 21:23 Hydrocodone/Acetaminophen (*Crx) 5-325 Mg Tablet PO 1 tab Q6H PRN Administration Pain Rated 4-6 Enoxaparin Sodium 40 mg 06/18/21 09:00 06/23/21 08:46 Enoxaparin 40 Mg/0.4 Ml Syringe SUB-Q 40 mg
--- NOTE | 2021-06-23 10:15 | PM.DS ---
DS: Admitting Diagnosis Discharge Date 06/23/21 Admitting Diagnosis Abdominal pain DS: Discharge Diagnosis Discharge Diagnosis (1) Bowel obstruction: Qualifiers: Intestinal obstruction extent: unspecified extent Intestinal obstruction type: unspecified Qualified Code(s): K56.609 - Unspecified intestinal obstruction, unspecified as to partial versus complete obstruction Code(s): K56.609 - Unspecified intestinal obstruction, unspecified as to partial versus complete obstruction Status: Acute Assessment and Plan: Patient discharged on June 14 after being hospitalized for abdominal pain and found to have a partial SBO. Upper GI prior to discharge did show mildly dilated mid small bowel consistent with adynamic ileus versus low-grade partial obstruction. She was tolerating oral intake. Patient returned with similar symptoms with CT scan showing SBO with transition point in the lower abdomen at the midline. NG tube placed and GenSurg consulted. Patient on 06/17/21 underwent exploratory laparotomy with extensive adhesiolysis and a SB resection with [id number] anastomosis (jejunal resection with jejunoileal anastomosis). Patietn recovered well with return of bowel function. Diet resumed and advanced as she tolerated. She is up walking in the halls. Normal bowel movements. She did well and was able to be discharged home. (2) Elevated LFTs: Code(s): R79.89 - Other specified abnormal findings of blood chemistry Status: Acute Assessment and Plan: LFTs were mildly elevated on admission. Could be viral illness related. Hepatitis panel negative. COVID screen negative. Rt upper quadrant ultrasound was normal. Repeat LFTs normalilzed. (3) Abnormal urinalysis: Code(s): R82.90 - Unspecified abnormal findings in urine Status: Acute Assessment and Plan: UA noted. Suspect this was a contaminated specimen. UCx grew 100-900 CFU of Klebsiella. Very very low colony count and did not feel this was significant. DS: Summary Hospital Course Reason for hospitalization: 71yo female with history of diverticulosis with partial colon resection and recent hospitalization for pSBO returns to the ED for abdominal pain, nausea and vomiting. Please see H&P for details Hospital Course: Please see above for details of hospital course Status at Discharge Cognitive/behavioral status at discharge: Stable Time Spent with Patient Time attestation: Total time spent providing and/or coordinating discharge services: 35 minutes Time spent: Greater than 30 minutes Exam Narrative: AF 98.1 146/61 78 20 97% ra Gen - NARD Chest - lungs CTA bilaterally. nml RR CV - RRR, S1/S2 Abd - soft, +BS, midline incision clean/dry/intact Ext - no pedal edema Psych - nml mood and affect Skin - warm and dry. DS: Data Data Completed and Pending Completed studies during hospitalization: Pending at discharge 06/17/21 12:09 Surgical [PTH] Routine Discharge Plan Discharge Attending physician on discharge: Сергей Dang Consulting providers: Yovany Sy Discharging Clinician: Сергей Dang Anticipated Discharge Date/Time: 06/23/21 10:24 Patient Disposition: Home Health Service Activity: may shower and other - see discharge instructions Diet: regular Wound Care Instructions: incision open to air Discharge Instructions: Care Coordination: Patient to have [facility] for PT/OT eval and treat, and usp. They can be reached at [phone] and they will contact you to schedule their first visit. DISCHARGE INSTRUCTION SHEET FOR DR. SY 1. May shower, no soaking in bath x 2weeks. 2. Call office for: Wound increasingly painful or bleeding Vomiting Fever of greater than 101 degrees 3. No heavy lifting > 10-15 pounds until further instructed in your follow-up appointment with the surgeon. 4. No driving whi
== END 2021-06-23 16:10 | disposition home health service (06) | DRG 331 ==
LOC: ANHED 04:25 → ANH2MED 13:11
PROVIDERS: Surgery; Admitting Provider Internal Medicine; Emergency Provider Emergency Medicine; PCP Family Medicine; Visit Provider Internal Medicine
PROC: 0DB80ZZ Excision of Small Intestine, Open Approach (ICD-10-PCS; CPT 49000; principal; 2021-06-17 10:30)
DX: K56.51 Intestinal adhesions [bands], with partial obstruction (principal); Z20.822 Contact with and (suspected) exposure to COVID-19; K57.90 Diverticulosis of intestine, part unspecified, without perforation or abscess without bleeding; E78.2 Mixed hyperlipidemia; N39.46 Mixed incontinence; R79.89 Other specified abnormal findings of blood chemistry; R82.90 Unspecified abnormal findings in urine; Z98.41 Cataract extraction status, right eye; Z87.891 Personal history of nicotine dependence
CPT/HCPCS: 36415; 51701; 74019; 74177; 76705; 80048; 80053; 80074; 81001; 82948; 83605; 83690; 83735; 85025; 85027; 87077; 87086; 87088; 87186; 88307; 93005; 96361; 96374; 96375; 99285; A9270; C9113; C9803; J0131; J0330; J0690; J1100; J1170; J1650; J2250; J2270; J2370; J2405; J2543; J2550; J2704; J2710; J3010; J3480; J7120; Q9967; U0003; U0005

== ENCOUNTER 2021-11-30 10:24 | Outpatient (CLI) | payer MEDICARE, SELFPAY ==
[2021-11-30 18:53] LABS: Alanine Aminotransferase 20 U/L (6-35); Albumin Level 4.4 g/dL (3.5-5.1); Alkaline Phosphatase 116 U/L (38-126); Anion Gap 8 mmol/L (8-16); Aspartate Amino Transferase 45 U/L (14-36); Bilirubin,Total 0.6 mg/dL (0.2-1.3); Blood Urea Nitrogen 11 mg/dL (7-17); Calcium 9.6 mg/dL (8.4-10.2); Carbon Dioxide 29 mmol/L (22-30); Chloride 103 mmol/L (98-107); Cholesterol 279 mg/dL (0-200); Estimated Glomerular Filt Rate > 60; Glucose 91 mg/dL (65-110); HDL Direct 46 mg/dL; Potassium 4.4 mmol/L (3.4-5.0); Sodium 140 mmol/L (137-145); Triglycerides 172 mg/dL (<150)
[2021-11-30 19:03] LABS: LDL Cholesterol Direct 159 mg/dL
[2021-11-30 20:00] LABS: Iron 75 ug/dL (37-170)
[2021-11-30 20:11] LABS: Percent Iron Saturation 22 % (20-50)
[2021-11-30 20:17] LABS: Vitamin D 25 Hydroxy 24.6 ng/mL
[2021-11-30 20:25] LABS: Hemoglobin A1C 5.9 % (<5.7)
[2021-11-30 20:32] LABS: Thyroid Stimulating Hormone Reflex 0.452 uIU/mL (0.465-4.68)
[2021-12-01 07:49] LABS: Free T4 Free Thyroxine Reflex 1.15 ng/dL (0.78-2.19)
[2021-12-01 08:52] LABS: Total Triiodothyronine (T3) 1.43 NG/ML (0.97-1.69)
== END 2021-11-30 10:25 | disposition home or self-care (01) ==
LOC: ANHGOSHLAB 10:26
PROVIDERS: PCP Family Medicine; Visit Provider Family Medicine
DX: E78.2 Mixed hyperlipidemia (principal); R73.09 Other abnormal glucose; D64.9 Anemia, unspecified; R53.83 Other fatigue; R20.2 Paresthesia of skin
CPT/HCPCS: 36415; 80053; 80061; 82306; 82607; 82728; 83036; 83540; 83550; 84439; 84443; 84480

== ENCOUNTER 2022-01-30 12:03 | Emergency (ER) | payer MEDICARE, SELFPAY ==
[2022-01-30] VITALS (23 sets, daily range): BP systolic 119–170; BP diastolic 61–90; PULSE 78–98; RESP 13–22; TEMP 36.5; O2SAT 96–98
--- NOTE | 2022-01-30 12:24 | ED.GENADULT ---
HPI - General Adult General Chief complaint: Unspecified Stated complaint: foggy and shaky for months Time Seen by Provider: 01/30/22 12:21 History of Present Illness HPI narrative: Patient is a 71-year-old female with a history of hyperlipidemia presenting with shakiness and mental fogginess. Patient states that she saw her PCP several months ago and was told that one of her thyroid numbers was low. She was supposed to follow-up with a specialist but has been unable to. Patient states that she continues to have shakiness in her hands and she feels foggy. States that she forgets things. States that she has also had difficulty sleeping lately. Reports decreased appetite as well. She denies fevers, headache, numbness or weakness, chest pain, shortness of breath, cough, abdominal pain, nausea or vomiting, diarrhea, dysuria, leg swelling. Related Data Home Medications Medication Instructions Recorded Confirmed fluorouracil 5 % topical cream 1 applic topical BID 11/29/21 11/29/21 metronidazole 1 % topical gel 1 applic topical DAILY 11/29/21 11/29/21 Allergies Allergy/AdvReac Type Severity Reaction Status Date / Time aspirin AdvReac Mild BLEEDING Verified 01/30/22 12:11 GUMS atorvastatin AdvReac Mild HAND Verified 01/30/22 12:11 MYALGIA simvastatin AdvReac Mild HAND Verified 01/30/22 12:11 MYALGIA Review of Systems Review of Systems: All systems reviewed & are unremarkable except as noted in HPI and below PMFSH Past Medical History Medical History Chronic constipation Diverticulitis Mixed hyperlipidemia Intolerant to statins Mixed stress and urge urinary incontinence Surgical History Surgical History H/O resection of large bowel Due to diverticulitis History of bilateral salpingo-oophorectomy (BSO) History of right cataract extraction History of vaginal hysterectomy Hx of Achilles tendon repair Status post small bowel resection 06/17/21 Family History Family History Mother , Age greater than 80 Diabetes mellitus Father , at age 89 Acute myocardial infarction Age greater than 80 Social History Social History Social History: She has been since 2017. She was for 51 years prior to her 's . She has 3 adult sons. 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 She smoked a half a pack of cigarettes per day for 20 years but quit smoking in her late 30s. She drinks 1 mixed drink a night since her . She denies any illicit substance use. Primary care physician: Dr. Rose Marie Henriquez Code status: Full code Healthcare power of animal geneticist: Harsha (oldest son) Smoking status: Former smoker (smoked0.5 ppd 25 years and quit for 30 years) Tobacco type: cigarettes Second hand tobacco smoke exposure: No Smoking end date: 05/15/84 Alcohol intake: never Substance use: never Substance use type: does not use Spiritual care concerns: No Agree to blood products: Yes Exam Narrative: GENERAL: Well-appearing, well-nourished, and in no acute distress. HEAD: Normocephalic, atraumatic. EYES: PERRLA and EOMI. ENT: Nares clear, no rhinorrhea or epistaxis. Mucous membranes moist. NECK: Supple. CHEST: Clear to auscultation. No respiratory distress. HEART: Regular rate and rhythm. No murmur heard. Normal peripheral pulses. ABDOMEN: Soft, nontender, nondistended, normal active bowel sounds. EXTREMITIES: Normal range of motion. No edema. SKIN: Warm, dry, no rash. NEURO: No focal deficits. Alert and oriented x3. PSYCH: Normal mood and affect. Course Vital Signs Vital signs: Vital Signs Temperature 97.7 F 01/30/22 12:08 P
[2022-01-30 13:03] LABS: Basophils Percent Auto 0.3 % (0.2-1.2); Eosinophils Absolute Auto 0.1 K/mm3 (0-0.3); Eosinophils Percent Auto 0.5 % (0-4.4); Hematocrit 42.2 % (37.0-47.0); Hemoglobin 13.9 g/dL (12.0-15.0); Immature Granulocyte Absolute 0.06 K/mm3 (0.00-0.031); Immature Granulocyte Percent A 0.5 % (0-0.5); Lymphocytes Absolute Auto 1.52 K/mm3 (0.9-3.2); Lymphocytes Percent Auto 13.1 % (18.3-44.2); Mean Corpuscular HGB Conc 32.9 g/dl (32-36); Mean Corpuscular Hemoglobin 29.8 pg (26-34); Mean Corpuscular Volume 90.4 fl (80-100); Mean Platelet Volume 9.2 fl (7.4-10.4); Monocytes Absolute Auto 0.9 K/mm3 (0.1-0.6); Monocytes Percent Auto 7.8 % (2.6-8.5); Neutrophils Percent Auto 77.8 % (45.5-73.1); Platelet Count Result 294 k/mm3 (150-375); Red Blood Count 4.67 M/mm3 (4.2-5.4); Red Cell Distribution Width 13.2 % (11.5-14.5); White Blood Count 11.6 K/mm3 (4.5-10.0)
[2022-01-30 13:15] LABS: Appearance Urine Clear (Clear); Bilirubin Urine Negative (Negative); Blood Urine Negative (Negative); Color Urine Yellow (Yellow); Glucose Urine UA Negative (Negative); Ketones Urine Negative (Negative); Leukocyte Esterase Ur Trace LEU/UL (Negative); Nitrate Urine Negative (Negative); Protein Urine Negative (Negative); Urobilinogen Urine 0.2 mg/dL (<2.0)
[2022-01-30 13:16] LABS: Alanine Aminotransferase 23 U/L (6-35); Albumin Level 4.5 g/dL (3.5-5.1); Alkaline Phosphatase 101 U/L (38-126); Anion Gap 10 mmol/L (8-16); Aspartate Amino Transferase 22 U/L (14-36); Bilirubin,Total 0.4 mg/dL (0.2-1.3); Blood Urea Nitrogen 17 mg/dL (7-17); Calcium 9.4 mg/dL (8.4-10.2); Carbon Dioxide 25 mmol/L (22-30); Chloride 104 mmol/L (98-107); Estimated CRCL calculation 52 ml/min; Estimated Glomerular Filt Rate > 60; Glucose 114 mg/dL (65-110); Potassium 4.3 mmol/L (3.4-5.0); Sodium 139 mmol/L (137-145)
[2022-01-30] MEDS: SODIUM CHLORIDE 0.9% IV 1,000 ML 999 ML IV CONT (13:22)
[2022-01-30 13:26] LABS: Mucus Urine Rare /lpf; RBC Urine 0-2 /hpf (0-2); Squamous Epithelial Cell Urine Few /hpf (Few); WBC Urine 0-3 /hpf
[2022-01-30 13:27] LABS: Add Urine Microscopic? YES
[2022-01-30 13:45] LABS: Thyroid Stimulating Hormone Reflex 0.387 uIU/mL (0.465-4.68)
[2022-01-30 15:10] LABS: Free T4 Free Thyroxine Reflex 1.34 ng/dL (0.78-2.19)
[2022-01-30 16:19] LABS: Total Triiodothyronine (T3) 1.35 NG/ML (0.97-1.69)
== END 2022-01-30 15:28 | disposition home or self-care (01) ==
PROVIDERS: Emergency Provider Emergency Medicine; PCP Family Medicine
DX: R25.1 Tremor, unspecified (principal); G47.00 Insomnia, unspecified; E78.2 Mixed hyperlipidemia; N39.46 Mixed incontinence; K59.09 Other constipation; Z90.49 Acquired absence of other specified parts of digestive tract; Z90.722 Acquired absence of ovaries, bilateral; Z90.79 Acquired absence of other genital organ(s); Z98.41 Cataract extraction status, right eye; Z90.710 Acquired absence of both cervix and uterus; Z87.891 Personal history of nicotine dependence
CPT/HCPCS: 36415; 80053; 81001; 84439; 84443; 84480; 85025; 96360; 99283; J7030

== ENCOUNTER 2022-01-31 13:45 | Outpatient (CLI) | payer MEDICARE, SELFPAY ==
[2022-01-31 21:14] LABS: Thyroid Stimulating Hormone 0.508 uIU/mL (0.465-4.680)
[2022-01-31 21:23] LABS: Free T4 Free Thyroxine 1.36 ng/mL (0.78-2.19)
[2022-02-03 20:35] LABS: Triiodothyronine T3 Free 3.3 pg/mL (2.3-4.2)
[2022-02-04 05:41] LABS: Thyroid Peroxidase Antibodies <1 IU/mL (<9)
[2022-02-04 15:07] LABS: Thyroid Stimulating Immunoglob <89 % baseline (<140)
== END 2022-01-31 13:46 | disposition home or self-care (01) ==
LOC: ANHGOSHLAB 13:49
PROVIDERS: PCP Family Medicine; Visit Provider Nurse Practitioner
DX: R94.6 Abnormal results of thyroid function studies (principal)
CPT/HCPCS: 36415; 84439; 84443; 84445; 84481; 86376

== ENCOUNTER 2024-03-28 10:06 | Outpatient (CLI) | payer MEDICARE, SELFPAY ==
[2024-03-28 14:01] LABS: Basophils Absolute Auto 0.1 K/mm3 (0.0-0.1); Basophils Percent Auto 0.5 % (0.2-1.2); Eosinophils Percent Auto 0.4 % (0-4.4); Hematocrit 44.9 % (37.0-47.0); Hemoglobin 14.1 g/dL (12.0-15.0); Immature Granulocyte Absolute 0.07 K/mm3 (0.00-0.031); Immature Granulocyte Percent A 0.7 % (0-0.5); Lymphocytes Percent Auto 19.8 % (18.3-44.2); Mean Corpuscular HGB Conc 31.4 g/dl (32-36); Mean Corpuscular Hemoglobin 29.4 pg (26-34); Mean Corpuscular Volume 93.5 fl (80-100); Mean Platelet Volume 9.7 fl (7.4-10.4); Monocytes Percent Auto 9.7 % (2.6-8.5); Neutrophils Percent Auto 68.9 % (45.5-73.1); Platelet Count Result 292 k/mm3 (150-375); Red Cell Distribution Width 13.2 % (11.5-14.5); White Blood Count 10.1 K/mm3 (4.5-10.0)
[2024-03-28 14:38] LABS: Albumin Level 4.6 g/dL (3.5-5.1); Alkaline Phosphatase 104 U/L (38-126); Anion Gap 6 mmol/L (4-12); Aspartate Amino Transferase 31 U/L (14-36); Bilirubin,Total 0.7 mg/dL (0.2-1.3); Blood Urea Nitrogen 14 mg/dL (7-17); Calcium 9.5 mg/dL (8.4-10.2); Carbon Dioxide 30 mmol/L (22-30); Chloride 101 mmol/L (98-107); Cholesterol 287 mg/dL (0-200); Estimated Glomerular Filt Rate > 60; Glucose 104 mg/dL (65-110); HDL Direct 52 mg/dL; Potassium 4.5 mmol/L (3.4-5.0); Sodium 137 mmol/L (137-145); Triglycerides 209 mg/dL (<150)
[2024-03-28 14:50] LABS: LDL Cholesterol Direct 173 mg/dL
[2024-03-28 15:05] LABS: Thyroid Stimulating Hormone 0.363 uIU/mL (0.465-4.680)
[2024-03-28 15:40] LABS: Folic Acid 10.1 ng/mL (2.76->20)
[2024-03-28 16:32] LABS: Alanine Aminotransferase < 6 U/L (6-35)
[2024-03-28 19:01] LABS: Hemoglobin A1C 6.5 % (<5.7)
[2024-03-28 20:24] LABS: Iron 68 ug/dL (37-170)
[2024-03-28 20:42] LABS: Free T4 Free Thyroxine 1.08 ng/mL (0.78-2.19); Percent Iron Saturation 22 % (20-50)
== END 2024-03-28 10:07 | disposition home or self-care (01) ==
LOC: ANHGOSHLAB 10:07
PROVIDERS: PCP Family Medicine; Visit Provider Student in an Organized Health Care Education/Training Program
DX: G20.C Parkinsonism, unspecified (principal); M79.642 Pain in left hand; B02.9 Zoster without complications; R79.89 Other specified abnormal findings of blood chemistry; E05.90 Thyrotoxicosis, unspecified without thyrotoxic crisis or storm; E78.2 Mixed hyperlipidemia; G25.81 Restless legs syndrome; R53.83 Other fatigue; R73.03 Prediabetes; Z00.00 Encounter for general adult medical examination without abnormal findings
CPT/HCPCS: 36415; 80053; 80061; 82607; 82728; 82746; 83036; 83540; 83550; 84439; 84443; 85025

== ENCOUNTER 2024-03-28 10:20 | Outpatient (CLI) | payer MEDICARE, SELFPAY ==
--- NOTE | ~2024-03-28 | XR_ITS ---
HISTORY: M79.642 - Pain in left hand COMPARISON: None TECHNIQUE: 3 views of the left hand were performed. FINDINGS: No acute fracture is identified. The proximal joint spaces are preserved. The carpal arcs are intact. Moderate radiocarpal joint space narrowing with sclerosis of the distal radius is present. Bone mineralization is age-appropriate. No significant soft tissue swelling. No radiopaque foreign body is identified. IMPRESSION: Degenerative disease, without acute fracture or dislocation within the left hand, as detailed above. Reviewed, dictated and finalized at location A. [facility] IMPRESSION: Degenerative disease, without acute fracture or dislocation within the left espinosa d, as detailed above.
== END 2024-03-28 10:21 | disposition home or self-care (01) ==
LOC: GOSHIMG 10:21
PROVIDERS: PCP Student in an Organized Health Care Education/Training Program; Visit Provider Student in an Organized Health Care Education/Training Program
DX: M19.042 Primary osteoarthritis, left hand (principal)
CPT/HCPCS: 73120

== ENCOUNTER 2024-10-30 11:21 | Outpatient (CLI) | payer MEDICARE, SELFPAY ==
--- OUTSIDE RECORDS SUMMARY | 2024-10-30 13:11 | XMS_ITS | Continuity of Care Document ---
Author Organization [facility] Address [address] [place] [address] [place] [address] Phone Care Team Providers Care Exceptional Children Teacher Name Role Phone Martin OD, Davion Unavailable Unavailable Procedures Procedure Date Eye Exam, New Patient Advance Directives Directive Yes / No Effective Date File Name No Information Encounters Encounter Description Practice Location Reason(s) For Visit Diagnoses Date Provider Providers Copied on Encounter [facility], [address], [place], [place], [id number], [place] tel:[phone] [facility] No Information 1-200 7 Martin OD Davion. [address] , [address], [place], [address], [place]. tel:[phone] Family History Family Member Type Diagnosis Age At Onset No Information Payers Payer name Insurance type Covered alliance party ID Willem douglas(s) [employer] Vision Plan [id number] Social History Type Description Quantity Date Captured Comments Sex Female Smoking Status No Information Chief Complaint And Reason For Visit No Information Reason For Referral Reason For Referral No Information History Of Present Illness Encounter Date Complaint History Of Prese nt Illness No Information Functional Status Date Functional Assessmen t No Information Instructions Date Instruction Additional Infor mation No Information Assessments Type Assessment Date No Information Patient Care Teams Name Effective Dates (start - stop) Status Members No Information
--- OUTSIDE RECORDS SUMMARY | 2024-10-30 13:11 | XMS_ITS | Data Portability ---
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 Pain started about a month ago. It started when she was doing an exercise at home. She was extending her right leg behind her to stretch out her hip. She felt pain and points right at the crease of where the buttocks meets the upper thigh. At this point her complaint is that when she gets up from a seated position she has this soreness directly in this area. After she walks for a short amount of time pain goes away and after that she is able to walk without any symptoms. She is able go up and down stairs without any symptoms. She notes in the morning when she 1st gets out of bed she has same symptoms but they dissipate after short while. Last 3 or 4 days her symptoms have actually been very minimal. She still wanted to come in to have this evaluated to make sure that something was missed. Physical exam: 72-year-old female very alert pleasant. She walks well today without limp or Trendelenburg sag. Right hip flexes to 120 without discomfort. Externally rotates to 30 without discomfort. Internally rotates to 20 without discomfort. Negative Stinchfield maneuver. She does have some mild tenderness to the greater trochanter to palpation, she states this is not a typical symptom pain. She has some mild weakness with abductor testing in lateral position. She has no tenderness to palpation of the inferior pubic ramus in the prone position. She did have pain with strength testing of the hamstring in the prone position with the knee bent at 90 . She pointed directly at the crease where she felt the pain, this is her typical pain she states. Impression: 72-year-old female who has injured the insertion tendon of the hamstring on the inferior pubic ramus with her exercise 1 month ago. Again her symptoms are improving in the last several days at this point her overall minimal. I recommended that she do some daily stretching of the hamstrings and I demonstrated several ways to do this for her. Jvgk-uyg-xbytqza anti-inflammator ies can be beneficial as well and she has ibuprofen at home and is going to take some of this as well. The fact that her symptoms are already improving conservative measures can be utilized. She is comfortable with the wait and see approach at this point. If symptoms do not improve or worsen she will call otherwise we can see her back as needed. 30 minutes was spent in treatment patient more than half of this in pwby-vg-[id number] conversation aidan Not available 10/24/2022 17:00:48 03/17/2023 03/17/2023 HPI: Patient returns. I saw her in October of this year and she had some hamstring tendinitis at the pubic ramus insertion. This has improved. At this point she starting having pain in the lateral aspect of the hip at the trochanteric bursa area. Bothers her lay on her side at night and is little bit difficult going up and down stairs. Previous x-rays show no arthritic changes in the hip. Physical exam: 72-year-old female alert pleasant. She does have a history of Parkinson's. She does move with a bit of a shuffle when she is walking. She is able get up on the exam table. Her hip flexes to 120 externally rotates to 30 internally rotates to 20. With internal and external rotation she has little bit of pain in the lateral hip. She has some mild tenderness over the trochanteric bursa to palpation. She does have mild weakness with abductor testing lateral position. This seems to be a bit of give-way weakness more than typical weakness. This may have something to do with her Parkinson's. Impression: 72-year-old female who has developed some trochanteric bursitis of the right hip. I talked with her may be that way she was walking when the hamstring pain was happening causing aggravation of the trochanteric bursitis. I did discuss treatment options including physical therapy as well as possible injection. She feels that the symptoms are not that bad and declined both of these. She is going to wait and see if it improves on its own and that is possible. We did talk a little bit about looking online for exercises for trochanteric bursitis. She may be developing some stiffness of the IT ban due to the Parkinson's which could predispose her to trochanteric bursitis and stretching in this area could be beneficial and we discussed this as well. She will follow up as needed. 20 minutes was spent in treatment patient more half of this in toik-vo-jkrt conversation Not available 03/17/2023 15:04:55 Plan of Treatment Reminders Order Date Submit Date Provider Last Modified By Organization Details Last Modified Time Details Appointments None recorded. Lab None recorded. Referral None recorded. Procedures None recorded. Surgeries None recorded. Imaging XR, hip + pelvis, unilateral 2022 023 [email or web address] [facility] [place], [address], [place], [address], 3 18:12:59 Medication Orders None recorded. Patient TargetsNo targets recorded. Patient InstructionsNo instructions recorded. Reason for Referral None Reported. Results Created Date Observation Date Name Description Value Unit Range Abnormal Flag Note LastModifiedBy Organization Detail LastModifiedTime 10/25/19 23 XR, hip + pelvi s, unila teral No observ ation record ed. [facility] [place] [address], [place], [address], 10/24/2022 16:57:13 Result Notes None recorded. Problems Name Problem SNOMED Code Status Onset Date Resolution Date Notes Provider Name and Address Organization Details Recorded Time Thyroid function tests abnormal 029645632 Active 2021 Not Available [facility] 3 01:25:24 Hypothyroi dism 98449639 Active 2021 Not Available [facility] 3 01:25:24 Pain of right hip joint 2187248790462 02 Active 2022 THIERRY Nicole [facility] 3 15:54:27 Problem Notes None recorded. Procedures Surgical History Date Name Laterality Status Provider Name and Address Organization Details Recorded Time [facility]ste[facility] completed [facility] 01:24:33 procedure on intestine completed THIERRY Nicole [facility] 10/24/2022 15:53:22 Foot Surgery completed THIERRY Nicole [facility] 10/24/2022 15:53:34 Imaging Results None recorded. Procedure Notes None recorded. Medical Equipment None Reported. Allergies Allergen ID Allergen Name Allergen Category Reaction Reaction Severity Criticality Documentation Date Start Date Code Code System Note Provider Name and Address Organization Details Recorded Time 71835 simvastat in medicatio n Not available Not available Not available 07/14/2022 32198 RxNorm Not Available [facility] 3 01:26:32 32772 atorvasta tin medicatio n Not available Not available Not available 07/14/2022 62232 RxNorm Not Available [facility] 3 01:26:32 65863 aspirin medicatio n Not available Not available Not available 07/14/2022 1191 RxNorm Not Available [facility] 3 01:26:32 Medications Name Sig Start Date Stop Date Status Note LastModified by Organization Details LastModified Time amoxicillin 500 mg capsule active Not Available Not Available Not Available prednisone 10 mg tablet active Not Available Not Available Not Available hydrocodone 5 mg-acetamin ophen 325 mg tablet TAKE 1 TABLET BY MOUTH EVERY 6 HOURS NEEDED FOR PAIN 10/24 completed Not Available Not Available Not Available doxycycline hyclate 50 mg capsule active Not Available Not Available N ot Available fluorouraci l 5 % topical cream APPLY TO THE AFFECTED AREA ON LIPS AND FOREARMS TWICE DAILY active Not Available Not Available No t Available carbidopa ER 50 mg-levodopa 200 mg tablet,exte nded release TAKE 1 TABLET BY MOUTH EVERY NIGHT active Not Available Not Available No t Available penicillin V potassium 500 mg tablet 10/24 completed Not Available Not Available Not Available triamcinolo ne acetonide 0.1 % topical cream active Not Available Not Available Not Available carbidopa 25 mg tablet active Not Available Not Available Not Available paroxetine 40 mg tablet active Not Available Not Available Not Available carbidopa 25 mg-levodopa 100 mg tablet active Not Available Not Available Not Available metronidazo le 0.75 % topical gel active Not Available Not Available Not Available rosuvastati n 5 mg tablet TAKE 1 TABLET BY MOUTH 2 TIMES PER WEEK 10/24 completed Not Available Not Available Not Available Vitals Date Recorded Body height Provider Name an d Address Organization Details Last Updated DateTime 10/24/2022 154.94 cm Farhana THIERRY [employer] [facility] [employer] 10/24/2022 15:51:26 Date Recorded Body mass index (BMI) Body height Oxygen saturation Oxygen saturation in Arterial blood by Pulse oximetry Heart rate Body temperature Body weight Systolic blood pressure Diastolic blood pressure Provider Name and Address Organization Details Last Updated DateTime 2 27.3 kg/m2 154.94 cm 100 % 100 % 84 /min 98 [degF] 92990.7 4 g 140 mm[Hg] 80 mm[Hg] Not Available [facility] 3 01:25:11 Date Recorded Body height Provider Name an d Address Organization Details Last Updated DateTime 03/17/2023 154.94 cm Lacey Nguyễn CNA Caviar [facility] [employer] 03/17/2023 14:14:17 Date Recorded Body mass index (BMI) Body height Heart rate Body temperature Body weight Systolic blood pressure Diastolic blood pressure Provider Name and Address Organization Details Last Updated DateTime 2 27.1 kg/m2 154.94 cm 83 /min 97.3 [degF] 93426.8 6 g 122 mm[Hg] 78 mm[Hg] Not Available [facility] 3 01:25:11 Social History Question Answer Notes LastModified by Organizat ion Details LastModified Time Tobacco Smoking Status Former Smoker Not Available [facility] 07/14/2022 01:24:26 What Is Your Level Of Caffeine Consumption? Moderate [id number] Information not available 07/14/2022 What Type Of Diet Are You Following? REGULAR [id number] Information not available 07/14/2022 Do You Have A Medical Power Of Claims Vice President? Yes Harsha (Oldest Son) [id number] Information not available 07/14/2022 What Is Your Relationship Status? [id number] Information not available 07/14/2022 Sex: Female Functional Status Question Answer Note LastModified by Organizat ion Details LastModified Time Do you or have you ever used any other forms of tobacco or nicotine? No [id number] Information not available 07/14/2022 What is your level of alcohol consumption? Moderate [id number] Information not available 07/14/2022 What is your exercise level? Occasional [id number] Information not available 07/14/2022 Mental Status None recorded. Family History Relationship Description Onset Age of this Age Resolved Age Notes LastModified by Organization Details LastModified Time Mother Diabetes mellitus [id number] Not available 07/14/2022 01:24:37 Father Myocardial infarction [id number] Not available 07/14/2022 01:24:37 Medical History Condition Response CANCER: SPECIFY EYE PROBLEMS Y GI PROBLEMS Y GERD/NAUSEA Y DIZZINESS Y DEPRESSION (INCLUDING POST ) Y INSOMNIA Y HAVE YOU BEEN HOSPITALIZED OR SEEN IN [facility] IN THE PAST YEAR ? Y HIGH CHOLESTEROL / HYPERLIPIDEMIA Y Gynecological HistoryNo gynecological history recorded. Obstetrics History GPAL:G 0 P 0 0 0 0 Past Encounters Encounter ID Performer Location Encounter Start Date Encounter Closed Date Diagnosis/Indication Diagnosis SNOMED-CT Code Diagnosis ICD10 Code Diagnosis Note [id number] [facility] [place] [address] [place] [address] 01/31/2022 00:00:00 01/31/2022 14:00:13 [id number] Melony Doll MD [facility] [place] [address] [place] [address] 03/21/2022 00:00:00 03/21/2022 11:41:23 [id number] Gabino Turner MD [facility] [place] [address] [place] [address] 10/24/2022 15:15:54 10/24/2022 18:12:59 Pain of right hip joint 7164361002 33005 M25.159 [id number] Gabino Turner MD [facility] [place] [address] [place] [address] 03/17/2023 14:11:02 03/17/2023 15:07:11 Pain of right hip joint 1614697358 83018 M25.551 Health Concerns Section Related Observation LastModified by Organization Detai ls LastModified Time None Recorded Concern Status LastModified by Organization Details LastModified Time None Recorded Advance Directives Directive None Recorded Payers Insurance Date Sequence Insurance Name Policy Number Policy Garcia Covered Member ID Garcia Member ID Guarantor Name 10/13/2022 1 [facility] (MEDICARE REPLACEMENT/A DVANTAGE - PPO) Cuca Acevedo [id number] Cuca Acevedo 03/23/2023 1 [employer] (MEDICARE REPLACEMENT/A DVANTAGE - PPO) [id number] Cuca Acevedo [id number] Cuca Acevedo OBGyn Episode No OBEpisode recorded.
--- OUTSIDE RECORDS SUMMARY | 2024-10-30 13:11 | XMS_ITS | Referral Summary ---
Author Organization [facility] [address] [place] [id number] Care Team Providers Care Crop Farm Workers Name Role Phone Rose Marie Henriquez MD Unavailable [phone] Rose Marie Henriquez MD Primary Care Provider [phone] Encounters Date Type Department Care Team Description 08/08/2024 Telephone [facility] [id number] [place] [address] [place] [phone] Jarrett Dickinson II, MD Medication Problem from Last 3 Months Allergies Active Allergy Reactions Criticality Noted Date Comments Onrlgfn-Zif-Xhj Reductase Inhibitors Unknown 02/13/2018 Medications amoxicillin 500 mg tablet/capsule Activ e carbidopa-levod opa (SINEMET) 25-100 mg per tablet Take 2 Tablets by mouth 3 times daily. 180 tablet 5 09/05/2024 Active sertraline (ZOLOFT) 50 mg tablet Take 1 Tablet (50 mg) by mouth daily. 30 tablet 2 09/13/2024 Active Active Problems Problem Noted Date Diagnosed Date Parkinson's disease ([facility]) 01/16/2024 Recurrent major depression 07/13/2023 Coronary artery disease with angina pectoris 06/2017 Awareness of heartbeats 10/12/2016 Overview (10/14/2016): Palpitations History of hysterectomy for benign disease 10/12 Overview (10/14/2016): History of hysterectomy for benign disease Adiposity 10/12/2016 Overview (10/14/2016): Obesity Former smoker 10/12/2016 Overview (10/14/2016): Former smoker Multiple-type hyperlipidemia 02/25/2016 Overview (08/18/2016): Mixed hyperlipidemia Immunizations Immunization Administration Dates Next Due Influenza, Split 02/12/2010 Influenza, Trivalent, High D ose, Split, Preservative Free, Intramuscular 02/25/2016,02/17/2015 Influenza, Trivalent, IM (MDV) 03/17/2014 Pneumococcal Conjugate PCV 13 10/06/2015 Social History Tobacco Use Types Packs/Day Years Used Date Smoking Tobacco: Former Smokeless Tobacco: Never Tobacco Cessation:Counseling Given: Not Answered Alcohol Use Standard Drinks/Week Comments Yes 0 (1 standard drink = 0.6 oz pur e alcohol) SOCIAL DRINKER Comments Unknown Sex and Gender Information Value Date Recorded Sex Assigned at Not on file Legal Sex Female 8:48 PM BAND SAW OPERATOR Gender Identity Not on file Sexual Orientation Not on file Last Filed Vital Signs Vital Sign Reading Time Taken Comments Blood Pressure 124/70 07/16/2024 1:07 PM BAND SAW OPERATOR Pulse 73 07/16/2024 1:07 PM BAND SAW OPERATOR Temperature - - Respiratory Rate 17 07/16/2024 1:07 PM BAND SAW OPERATOR Oxygen Saturation 98% 07/16/2024 1:07 PM BAND SAW OPERATOR Inhaled Oxygen Concentration - - Weight 69.6 kg (153 lb 6.4 oz) 07/16/2024 1:07 P M BAND SAW OPERATOR Height 154.9 cm (5' 1) 07/16/2024 1:07 PM BAND SAW OPERATOR Body Mass Index 28.98 07/16/2024 1:07 PM BAND SAW OPERATOR Plan of Treatment Not on file Procedures Procedure Name Priority Date/Time Associated Diagnosis Comments MAMMOGRAPHY, TOMOGRAPHY, BILATERAL Routine 01/10/2017 4:37 PM CDT from Last 3 Months or Most Recently Relevant to Health Maintenance Results * MAMMOGRAPHY, TOMOGRAPHY, BILATERAL (01/10/2017 4:37 PM CDT) Anatomical Region Laterality Modality Breast Bilateral Mammography 01/10/2017 4:37 PM CDT Narrative 01/10/2017 4:37 PM CDT Acc#: [id number] KWAN [id number] - Screening Mamm W Anders Bi DATE OF EXAM: Jan 10 2017 11:37AM DIAGNOSIS: ENCNTR SCREEN MAMMOGRAM FOR MALIGNANT NE CLINICAL HISTORY: SCREENING RESULT: EXAMINATION: Screening Mamm W Anders Bi HISTORY: Screening. TECHNIQUE: Full field digital craniocaudal and mediolateral oblique views of both breasts were obtained. Computer aided detection and digital breast tomosynthesis were performed and reviewed as part of this examination. COMPARISON: Outside hospital screening mammograms dated 12/12/2014. BREAST PARENCHYMAL COMPOSITION: There are scattered areas of fibroglandular density. FINDINGS: There is a focal area of possible architectural distortion in the upper right breast at middle to anterior depth on the mediolateral oblique view. No correlate is seen for this finding on the right craniocaudal view. Small masses the left breast are unchanged compared to the previous study, and almost certainly benign given the stability over 2 years. No new suspicious abnormality is seen within the left breast on mammogram. IMPRESSION: OVERALL FINAL ASSESSMENT: BI-RADS Category 0: Incomplete: Need additional imaging evaluation. RECOMMENDATION: Spot compression views of the right breast recommended. Electronically signed by: Art Shelley M.D. TECHNOLOGIST: SUKHDEV KEATING, TECHNOLOGIST MEDICAL IMAGING SECOND OFFICER: PSC TRANSCRIBE DATE/TIME: Jan 11 2017 4:48P RADIOLOGIST: ART SHELLEY M.D. READ ON: Jan 11 2017 4:53P ORDERING DR: LINDSEY MONTES DE OCA M.D. THIS DOCUMENT HAS BEEN ELECTRONICALLY SIGNED BY: ART SHELLEY M.D. ON: Jan 11 2017 4:48P Attending: LINDSEY MONTES DE OCA Requesting: LINDSEY MONTES DE OCA Requesting Attending Attending ID: [id number] Requesting ID: [id number] Report To 1 ID: Report To 1 Name: , Report To 1 FAX: -- Report To 2 ID: Report To 2 Name: , Report To 2 FAX: -- NextGen Order #: Procedure Note Miscellaneous, Not In File / Provider, MD Taya - 01/11/2017 Acc#: [id number] KWAN [id number] - Screening Mamm W Anders Bi DATE OF EXAM: Jan 10 2017 11:37AM DIAGNOSIS: ENCNTR SCREEN MAMMOGRAM FOR MALIGNANT NE CLINICAL HISTORY: SCREENING RESULT: EXAMINATION: Screening Mamm W Anders Bi HISTORY: Screening. TECHNIQUE: Full field digital craniocaudal and mediolateral oblique views of both breasts were obtained. Computer aided detection and digital breast tomosynthesis were performed and reviewed as part of this examination. COMPARISON: Outside hospital screening mammograms dated 12/12/2014. BREAST PARENCHYMAL COMPOSITION: There are scattered areas of fibroglandular density. FINDINGS: There is a focal area of possible architectural distortion in the upper right breast at middle to anterior depth on the mediolateral oblique view. No correlate is seen for this finding on the right craniocaudal view. Small masses the left breast are unchanged compared to the previous study, and almost certainly benign given the stability over 2 years. No new suspicious abnormality is seen within the left breast on mammogram. IMPRESSION: OVERALL FINAL ASSESSMENT: BI-RADS Category 0: Incomplete: Need additional imaging evaluation. RECOMMENDATION: Spot compression views of the right breast recommended. Electronically signed by: Art Shelley M.D. TECHNOLOGIST: SUKHDEV KEATING TECHNOLOGIST MEDICAL IMAGING SECOND OFFICER: [employer] TRANSCRIBE DATE/TIME: Jan 11 2017 4:48P RADIOLOGIST: ART SHELLEY M.D. READ ON: Jan 11 2017 4:53P ORDERING DR: LINDSEY MONTES DE OCA M.D. THIS DOCUMENT HAS BEEN ELECTRONICALLY SIGNED BY: ART SHELLEY M.D. ON: Jan 11 2017 4:48P Attending: LINDSEY MONTES DE OCA Requesting: LINDSEY MONTES DE OCA Requesting Attending Attending ID: [id number] Requesting ID: [id number] Report To 1 ID: Report To 1 Name: , Report To 1 FAX: -- Report To 2 ID: Report To 2 Name: , Report To 2 FAX: -- NextGen Order #: Lindsey Montes De Oca MD IMG MAMMO PROCEDURES Benita l Result from Last 3 Months or Most Recently Relevant to Health Maintenance Insurance AET MEDICARE T MEDICARE Care Teams Crop Farm Workers Relationship Specialty Start Date End Date Rose Marie Henriquez MD PCP - General Family Medicine 12/07/17 Rose Marie Henriquez MD Referring Physician Family Medicine 12/07/17
--- OUTSIDE RECORDS SUMMARY | 2024-10-30 13:11 | XMS_ITS | Clinical Summary ---
Author Organization [facility] [address] [place] [phone] Care Team Providers Care Cardiac Sonographer Name Role Phone Rose Marie Henriquez MD Unavailable [phone] Rose Marie Henriquez MD Primary Care Provider [phone] Allergies Active Allergy Reactions Criticality Noted Date Comments Usxifgn-Pjf-Nao Reductase Inhibitors Unknown 02/13/2018 Medications amoxicillin 500 mg tablet/capsule Activ e carbidopa-levod opa (SINEMET) 25-100 mg per tablet Take 2 Tablets by mouth 3 times daily. 180 tablet 5 09/05/2024 Active sertraline (ZOLOFT) 50 mg tablet Take 1 Tablet (50 mg) by mouth daily. 30 tablet 2 09/13/2024 Active Active Problems Problem Noted Date Diagnosed Date Parkinson's disease ([facility]) 01/16/2024 Recurrent major depression 07/13/2023 Coronary artery disease with angina pectoris 06/2017 Awareness of heartbeats 10/12/2016 Overview (10/14/2016): Palpitations History of hysterectomy for benign disease 10/12 Overview (10/14/2016): History of hysterectomy for benign disease Adiposity 10/12/2016 Overview (10/14/2016): Obesity Former smoker 10/12/2016 Overview (10/14/2016): Former smoker Multiple-type hyperlipidemia 02/25/2016 Overview (08/18/2016): Mixed hyperlipidemia Encounters Date Type Department Care Team Description 08/08/2024 Telephone [facility] [address] [address] Jarrett Dickinson II, MD Medication Problem from Last 3 Months Immunizations Immunization Administration Dates Next Due Influenza, Split 02/12/2010 Influenza, Trivalent, High D ose, Split, Preservative Free, Intramuscular 02/25/2016,02/17/2015 Influenza, Trivalent, IM (MDV) 03/17/2014 Pneumococcal Conjugate PCV 13 10/06/2015 Surgical History Surgery Date Site/Laterality Comments OTHER SURGICAL HISTORY 05/15/1994 - 05/14/1995 Diverticulitis: Hospitalization OTHER SURGICAL HISTORY 05/15/2012 - 05/14/2013 diverticulitis and ovarian cyst: laparoscopic BSO and partial colectomy VAGINAL HYSTERECTOMY Hysterectomy, Vaginal OTHER SURGICAL HISTORY 05/15/2011 - 05/14/2012 , [facility], with BSO APPENDECTOMY COLON SURGERY Medical History Medical History Date Comments Hyperlipidemia Hyperlipidemia Hx Other Medical Diverticulitis; Outcome: improved Hx Other Medical diverticulitis and ovarian cyst Peptic ulcer Peptic Ulcer Dis ease Cataracts, both eyes High cholesterol Tremors of nervous system Family History Medical History Relation Name Comments Coronary artery disease Father Jerad nary artery disease; Heart attack Father Myocardial Infa rction; Cause of : Myocardial Infarction Diabetes Mother Diabetes mellit ; Cause of : Diabetes mellitus Diabetes type II Mother Diabetes Ty pe II; Cause of : Diabetes Type II Other Other 1 No family histo ry of Cancer; Other Other 2 No family histo ry of Stroke; Relation Name Status Comments Father (Age 82) Mother (Age 70) Other 1 Other 2 Social History Tobacco Use Types Packs/Day Years Used Date Smoking Tobacco: Former Smokeless Tobacco: Never Tobacco Cessation:Counseling Given: Not Answered Alcohol Use Standard Drinks/Week Comments Yes 0 (1 standard drink = 0.6 oz pur e alcohol) SOCIAL DRINKER Comments Unknown Sex and Gender Information Value Date Recorded Sex Assigned at Not on file Legal Sex Female 8:48 PM CONSTRUCTION CONTRACTOR Gender Identity Not on file Sexual Orientation Not on file Obstetrics History Last Filed Vital Signs Vital Sign Reading Time Taken Comments Blood Pressure 124/70 07/16/2024 1:07 PM CONSTRUCTION CONTRACTOR Pulse 73 07/16/2024 1:07 PM CONSTRUCTION CONTRACTOR Temperature - - Respiratory Rate 17 07/16/2024 1:07 PM CONSTRUCTION CONTRACTOR Oxygen Saturation 98% 07/16/2024 1:07 PM CONSTRUCTION CONTRACTOR Inhaled Oxygen Concentration - - Weight 69.6 kg (153 lb 6.4 oz) 07/16/2024 1:07 P M CONSTRUCTION CONTRACTOR Height 154.9 cm (5' 1) 07/16/2024 1:07 PM CONSTRUCTION CONTRACTOR Body Mass Index 28.98 07/16/2024 1:07 PM CONSTRUCTION CONTRACTOR Plan of Treatment Health Maintenance Due Date Last Done Comments Colon Cancer Screening-Colonoscopy 1949 Depression Screening 1950 Hepatitis C Screening 1950 Osteoporosis Screening-Bone Density Scan 1949 Zoster Vaccine (1 of 2) 1999 Well Visit 65+ 2014 Pneumococcal vaccine 65+ (2 of 2 - PPSV23) 10/05/2016 10/06/2015 Covid-19 Vaccine (4 - 2023-2 5 season) 2024 09/16/2021, 05/14/2021, 07/20/2020 DTaP/Tdap/Td Vaccine (2 - Td or Tdap) 10/24/2024 10/24/2014 Influenza Vaccine (Season Ended) 2025 03/04/2021, 02/27/2020, 03/19/2018, Additional history exists Fall Risk Assessment 07/16/2025 07/16/2024, 01/16/2024, 07/12/2022, Additional history exists Hepatitis B Screening Completed 07/12/2002 , 03/11/2002, 02/05/2002 Breast Cancer Screening-Mammogram Discontinued 017 Procedures Procedure Name Priority Date/Time Associated Diagnosis Comments MAMMOGRAPHY, TOMOGRAPHY, BILATERAL Routine 01/10/2017 4:37 PM CDT from Last 3 Months or Most Recently Relevant to Health Maintenance Results * MAMMOGRAPHY, TOMOGRAPHY, BILATERAL (01/10/2017 4:37 PM CDT) Anatomical Region Laterality Modality Breast Bilateral Mammography 01/10/2017 4:37 PM CDT Narrative 01/10/2017 4:37 PM CDT Acc#: [id number] KWAN [id number] - Screening Mamm W Anders [...] M.D. TECHNOLOGIST: SUKHDEV KEATING, TECHNOLOGIST MEDICAL IMAGING COMPUTER SYSTEMS ENGINEER: [employer] TRANSCRIBE DATE/TIME: Jan 11 2017 4:48P RADIOLOGIST: ART SHELLEY M.D. READ ON: Jan 11 2017 4:53P ORDERING DR: LINDSEY MONTES DE OCA M.D. THIS DOCUMENT HAS BEEN ELECTRONICALLY SIGNED BY: ART SHELLEY M.D. ON: Jan 11 2017 4:48P Attending: LINDSEY MONTES DE OCA Requesting: LINDSEY MONTES DE OCA Requesting Attending Attending ID: [id number] Requesting ID: [id number] Report To 1 ID: Report To 1 Name: , Report To 1 FAX: -- Report To 2 ID: Report To 2 Name: , Report To 2 FAX: -- NextGen Order #: Procedure Note Miscellaneous, Not In File / Provider, MD Taya - 01/11/2017 Acc#: [id number] KWAN [id number] - Screening Mamm W Anders [...] M.D. TECHNOLOGIST: SUKHDEV KEATING TECHNOLOGIST MEDICAL IMAGING COMPUTER SYSTEMS ENGINEER: [employer] TRANSCRIBE DATE/TIME: Jan 11 2017 4:48P RADIOLOGIST: ART SHELLEY M.D. READ ON: Jan 11 2017 4:53P ORDERING DR: LINDSEY MONTES DE OCA M.D. THIS DOCUMENT HAS BEEN ELECTRONICALLY SIGNED BY: ART SHELLEY M.D. ON: Jan 11 2017 4:48P Attending: LINDSEY MONTES DE OCA Requesting: LINDSEY MONTES DE OCA Requesting Attending Attending ID: [id number] Requesting ID: [id number] Report To 1 ID: Report To 1 Name: , Report To 1 FAX: -- Report To 2 ID: Report To 2 Name: , Report To 2 FAX: -- NextGen Order #: Lindsey Montes De Oca MD IMG MAMMO PROCEDURES Benita l Result from Last 3 Months or Most Recently Relevant to Health Maintenance Insurance [facility] MEDICARE [facility] MEDICARE Care Teams Cardiac Sonographer Relationship Specialty Start Date End Date Rose Marie Henriquez MD PCP - General Family Medicine 12/07/17 Rose Marie Henriquez MD Referring Physician Family Medicine 12/07/17
--- OUTSIDE RECORDS SUMMARY | 2024-10-30 13:11 | XMS_ITS | Clinical Summary ---
Author Organization [facility] Address [address] [facility] [address] Attn: Epic Prelude ADT [place] [address] Care Team Providers Care Craft Superintendent Name Role Phone Unavailable Primary Care Provider Unavailabl e Allergies No known active allergies Medications carbidopa-levod opa (SINEMET) 25-100 mg tablet Take 1 tablet by mouth 3 (three) times a day 180 Tablet 5 2 Active triamcinolone acetonide (KENALOG) 0.1 % Cream APPLY TWICE DAILY TO ITCHY RASH AREAS ON BACK DIRECTED. 454 Gram 08/08/2022 3:30 PM CDT 3 Active acetaminophen 325 mg Capsule Take 325 mg by mouth every 6 hours as needed. 30 Capsule 3 Active carbidopa (LODOSYN) 25 mg Tablet Take 1 Tablet (25 mg) by mouth 3 times daily. 90 Tablet 5 10/05/2022 12:59 PM CDT 3 Active doxycycline hyclate (VIBRAMYCIN) 50 mg Capsule Take 1 Capsule (50 mg) by mouth 2 times daily for 3 months for rosacea. Start after finishing amoxicillin. 60 Capsule 2 10/05/2022 12:59 PM CDT 3 Active PARoxetine HCl (PAXIL) 40 mg tablet Take 1 Tablet (40 mg) by mouth daily in the morning. 30 Tablet 5 06/17/2023 2:49 PM RESTAURANT HOSPITALITY MANAGER 3 Active PARoxetine HCl (PAXIL) 40 mg tablet Take 1 Tablet (40 mg) by mouth daily in the morning. 30 Tablet 5 3 Active carbidopa-levod opa (SINEMET CR) 50-200 mg Controlled Release tablet Take 1 Tablet by mouth daily at bedtime. 90 Tablet 1 04/17/2023 2:26 PM RESTAURANT HOSPITALITY MANAGER 3 Active loteprednol (LOTEMAX) 0.5 % suspension Administer 1 drop twice daily for 1 week in both eyes, and then once daily for 1 week in both eyes as directed 10 mL 1 01/11/2024 1:23 PM CDT 4 Active carbidopa-levod opa (SINEMET) 25-100 mg tablet Take 1 Tablet by mouth 3 times daily. 270 Tablet 1 07/20/2024 12:32 PM RESTAURANT HOSPITALITY MANAGER 5 Active carbidopa-levod opa (SINEMET) 25-100 mg tablet Take 2 Tablets by mouth 3 times daily. 180 Tablet 5 10/08/2024 12:56 PM CDT 5 Active sertraline (ZOLOFT) 50 mg tablet Take 1 Tablet (50 mg) by mouth daily. 30 Tablet 2 10/08/2024 12:56 PM CDT 5 Active sertraline (ZOLOFT) 50 mg tablet Take 1 Tablet (50 mg) by mouth daily. 30 Tablet 2 5 Active clobetasoL (TEMOVATE) 0.05 % Solution Apply to itchy areas of scalp once daily at bedtime 50 mL 1 10/30/2024 12:12 PM CDT 5 Active nystatin (MYCOSTATIN) 100,000 unit/mL suspension Swish and swallow 5 mL by mouth four times daily for 14 days 280 mL 10/30/2024 12:12 PM CDT 5 Active Social History Tobacco Use Types Packs/Day Years Used Date Smoking Tobacco: Never Assessed Comments Unknown Sex and Gender Information Value Date Recorded Sex Assigned at Not on file Legal Sex Female 3:27 PM CDT Gender Identity Not on file Sexual Orientation Not on file Plan of Treatment Health Maintenance Due Date Last Done Comments DTAP/TDAP/TD VACCINES (1 - Tdap) 1968 COLORECTAL SCREENING 1994 Colorectal Cancer Screening 1994 FIT-DNA Q 3 years 1994 FIT/FOBT Q 1 year 1994 Flex Sig/CT Colonography Q 5 years 1994 PNEUMOCOCCAL VACCINE 50+ YEARS (1 of 1 - PCV) 04/06/19 99 ZOSTER VACCINE (1 of 2) 1999 OSTEOPOROSIS SCREENING 2014 INFLUENZA VACCINE (#1) 2023 RSV VACCINE (60+ or ) (1 - 1-dose 75+ series) 2024 Insurance RX AET[employer] Medicare Part D RX [employer] (INTERNAL) [employer]
[2024-10-30 18:46] LABS: Basophils Percent Auto 0.3 % (0.2-1.2); Eosinophils Percent Auto 0.3 % (0-4.4); Hematocrit 41.6 % (37.0-47.0); Hemoglobin 13.1 g/dL (12.0-15.0); Immature Granulocyte Absolute 0.07 K/mm3 (0.00-0.031); Immature Granulocyte Percent A 0.7 % (0-0.5); Lymphocytes Absolute Auto 1.94 K/mm3 (0.9-3.2); Lymphocytes Percent Auto 18.1 % (18.3-44.2); Mean Corpuscular HGB Conc 31.5 g/dl (32-36); Mean Corpuscular Hemoglobin 28.6 pg (26-34); Mean Corpuscular Volume 90.8 fl (80-100); Mean Platelet Volume 9.8 fl (7.4-10.4); Monocytes Absolute Auto 0.8 K/mm3 (0.1-0.6); Monocytes Percent Auto 7.5 % (2.6-8.5); Neutrophils Absolute Auto 7.8 K/mm3 (1.3-6.7); Neutrophils Percent Auto 73.1 % (45.5-73.1); Platelet Count Result 312 k/mm3 (150-375); Red Blood Count 4.58 M/mm3 (4.2-5.4); Red Cell Distribution Width 14.3 % (11.5-14.5); White Blood Count 10.7 K/mm3 (4.5-10.0)
[2024-10-30 19:07] LABS: Alanine Aminotransferase 7 U/L (6-35); Albumin Level 4.3 g/dL (3.5-5.1); Alkaline Phosphatase 107 U/L (38-126); Anion Gap 9 mmol/L (4-12); Aspartate Amino Transferase 33 U/L (14-36); Bilirubin,Total 0.6 mg/dL (0.2-1.3); Blood Urea Nitrogen 17 mg/dL (7-17); Calcium 9.3 mg/dL (8.4-10.2); Carbon Dioxide 26 mmol/L (22-30); Chloride 103 mmol/L (98-107); Cholesterol 307 mg/dL (0-200); Estimated Glomerular Filt Rate > 60; Glucose 106 mg/dL (65-110); HDL Direct 50 mg/dL; Potassium 4.7 mmol/L (3.4-5.0); Sodium 138 mmol/L (137-145); Total Protein 7.7 g/dL (6.3-8.2); Triglycerides 172 mg/dL (<150)
[2024-10-30 19:17] LABS: Erythrocyte Sedimentation Rate 18 mm/hr (0-20)
[2024-10-30 19:18] LABS: LDL Cholesterol Direct 174 mg/dL
[2024-10-30 19:22] LABS: Vitamin D 25 Hydroxy 18.2 ng/mL
[2024-10-30 19:35] LABS: Thyroid Stimulating Hormone Reflex 0.558 uIU/mL (0.465-4.68)
[2024-10-30 19:53] LABS: Hemoglobin A1C 6.2 % (<5.7)
== END 2024-10-30 11:22 | disposition home or self-care (01) ==
PROVIDERS: PCP Family Medicine; Visit Provider Family Medicine
DX: E03.9 Hypothyroidism, unspecified (principal); E11.9 Type 2 diabetes mellitus without complications; E53.8 Deficiency of other specified B group vitamins; E55.9 Vitamin D deficiency, unspecified; E78.2 Mixed hyperlipidemia; R53.83 Other fatigue; R70.0 Elevated erythrocyte sedimentation rate
CPT/HCPCS: 36415; 80053; 80061; 82306; 82607; 83036; 84443; 85025; 85652

== ENCOUNTER 2024-11-20 12:08 | Emergency (ER) | payer MEDICARE, SELFPAY ==
--- OUTSIDE RECORDS SUMMARY | 2024-11-20 12:10 | XMS_ITS | Referral Summary ---
Author Organization [facility] [address] [place] [phone] Care Team Providers Care Official Court Reporter Name Role Phone Rose Marie Henriquez MD Unavailable [phone] Rose Marie Henriquez MD Primary Care Provider [phone] Allergies Active Allergy Reactions Criticality Noted Date Comments Yypxndi-Hqu-Asz Reductase Inhibitors Unknown 02/13/2018 Medications amoxicillin 500 mg tablet/capsule Activ e carbidopa-levod opa (SINEMET) 25-100 mg per tablet Take 2 Tablets by mouth 3 times daily. 180 tablet 5 09/05/2024 Active sertraline (ZOLOFT) 50 mg tablet Take 1 Tablet (50 mg) by mouth daily. 30 tablet 2 09/13/2024 Active Active Problems Problem Noted Date Diagnosed Date Parkinson's disease ([facility]) 01/16/2024 Recurrent major depression 07/13/2023 Coronary [...] on file Legal Sex Female 8:48 PM GASOLINE SERVICE ATTENDANT Gender Identity Not on file Sexual Orientation Not on file Last Filed Vital Signs Vital Sign Reading Time Taken Comments Blood Pressure 124/70 07/16/2024 1:07 PM GASOLINE SERVICE ATTENDANT Pulse 73 07/16/2024 1:07 PM GASOLINE SERVICE ATTENDANT Temperature - - Respiratory Rate 17 07/16/2024 1:07 PM GASOLINE SERVICE ATTENDANT Oxygen Saturation 98% 07/16/2024 1:07 PM GASOLINE SERVICE ATTENDANT Inhaled Oxygen Concentration - - Weight 69.6 kg (153 lb 6.4 oz) 07/16/2024 1:07 P M GASOLINE SERVICE ATTENDANT Height 154.9 cm (5' 1) 07/16/2024 1:07 PM GASOLINE SERVICE ATTENDANT Body Mass Index 28.98 07/16/2024 1:07 PM GASOLINE SERVICE ATTENDANT Plan of Treatment Not on file Procedures Procedure Name Priority Date/Time Associated Diagnosis Comments MAMMOGRAPHY, TOMOGRAPHY, BILATERAL Routine 01/10/2017 4:37 PM CDT from Last 3 Months or Most Recently Relevant to Health Maintenance Results * MAMMOGRAPHY, TOMOGRAPHY, BILATERAL (01/10/2017 4:37 PM CDT) Anatomical Region Laterality Modality Breast Bilateral Mammography 01/10/2017 4:37 PM CDT Narrative 01/10/2017 4:37 PM CDT Acc#: [id number] KWAN [id number] - Screening Mamm W Anders [...] M.D. TECHNOLOGIST: SUKHDEV KEATING, TECHNOLOGIST MEDICAL IMAGING COAL DIGGER: [employer]SC TRANSCRIBE DATE/TIME: Jan 11 2017 4:48P RADIOLOGIST: ART SHELLEY M.D. READ ON: Jan 11 2017 4:53P ORDERING DR: LINDSEY MONTES DE OCA M.D. THIS DOCUMENT HAS BEEN ELECTRONICALLY SIGNED BY: ART SHELLEY M.D. ON: Jan 11 2017 4:48P Attending: LINDSEY MONTES DE OCA Requesting: LINDSEY MONTES DE OCA Requesting Attending Attending ID: [id number] Requesting ID: [id number] Report To 1 ID: Report To 1 Name: , Report To 1 FAX: -- Report To 2 ID: Report To 2 Name: , Report To 2 FAX: -- NextGen Order #: Procedure Note Miscellaneous, Not In File / Provider, MD Taya - 01/11/2017 Acc#: [id number] KWAN [id number] - Screening Mamm W Anders [...] M.D. TECHNOLOGIST: SUKHDEV KEATING, TECHNOLOGIST MEDICAL IMAGING COAL DIGGER: [employer] TRANSCRIBE DATE/TIME: Jan 11 2017 4:48P RADIOLOGIST: ART SHELLEY M.D. READ ON: Jan 11 2017 4:53P ORDERING DR: LINDSEY MONTES DE OCA M.D. THIS DOCUMENT HAS BEEN ELECTRONICALLY SIGNED BY: ART SHELLEY M.D. ON: Jan 11 2017 4:48P Attending: LINDSEY MONTES DE OCA Requesting: LINDSEY MONTES DE OCA Requesting Attending Attending ID: [id number] Requesting ID: [id number] Report To 1 ID: Report To 1 Name: , Report To 1 FAX: -- Report To 2 ID: Report To 2 Name: , Report To 2 FAX: -- NextGen Order #: Lindsey Montes De Oca MD IMG MAMMO PROCEDURES Benita l Result from Last 3 Months or Most Recently Relevant to Health Maintenance Insurance AET[employer] MEDICARE [facility] MEDICARE Care Teams Official Court Reporter Relationship Specialty Start Date End Date Rose Marie Henriquez MD PCP - General Family Medicine 12/07/17 Rose Marie Henriquez MD Referring Physician Family Medicine 12/07/17
--- OUTSIDE RECORDS SUMMARY | 2024-11-20 12:10 | XMS_ITS | Data Portability ---
Author Organization [place] [facility], Main Office Address [address] [place] [address] Care Team Providers Care Rolloff Driver Name Role Phone RAGHU BHATIA Primary Care Provider [phone] RAGHU BHATIA Referring Provider [phone] Assessment Encounter Date Assessment Date Assessment LastModified [...] several ways to do this for her. Cyel-yci-ttuhzpv anti-inflammator ies can be beneficial as well [...] patient more than half of this in nuhx-cg-svrg conversation aidan Not available 10/24/2022 17:00:48 03/17/2023 [...] treatment patient more half of this in ticr-rc-ccnu conversation Not available 03/17/2023 15:04:55 Plan of Treatment Reminders Order Date Submit Date Provider Last Modified By Organization Details Last Modified Time Details Appointments None recorded. Lab None recorded. Referral None recorded. Procedures None recorded. Surgeries None recorded. Imaging XR, hip + pelvis, unilateral 2022 023 [email or web address] [facility] [place], [address], [place], [address], 3 18:12:59 Medication Orders None recorded. Patient TargetsNo targets recorded. Patient InstructionsNo instructions recorded. Reason for Referral None Reported. Results Created Date Observation Date Name Description Value Unit Range Abnormal Flag Note LastModifiedBy Organization Detail LastModifiedTime 10/25/19 23 XR, hip + pelvi s, unila teral No observ ation record ed. [facility] [place] [address], [place], [address], 10/24/2022 16:57:13 Result Notes None recorded. Problems Name Problem SNOMED Code Status Onset Date Resolution Date Notes Provider Name and Address Organization Details Recorded Time Thyroid function tests abnormal 199510093 Active 2021 Not Available [facility] 3 01:25:24 Hypothyroi dism 57428663 Active 2021 Not Available [facility] 3 01:25:24 Pain of right hip joint 4384060845106 02 Active 2022 THIERRY Nicole [place] [facility] 3 15:54:27 Problem Notes None recorded. Procedures Surgical History Date Name Laterality Status Provider Name and Address Organization Details Recorded Time Hysterectomy completed Not Available [facility] 07/14/2022 01:24:33 procedure on intestine completed THIERRY Nicole [facility] 10/24/2022 15:53:22 Foot Surgery completed THIERRY Nicole [facility] 10/24/2022 15:53:34 Imaging Results None recorded. Procedure Notes None recorded. Medical Equipment None Reported. Allergies Allergen ID Allergen Name Allergen Category Reaction Reaction Severity Criticality Documentation Date Start Date Code Code System Note Provider Name and Address Organization Details Recorded Time 57622 simvastat in medicatio n Not available Not available Not available 07/14/2022 58953 RxNorm Not Available [facility] 3 01:26:32 03732 atorvasta tin medicatio n Not available Not available Not available 07/14/2022 32212 RxNorm Not Available [facility] 3 01:26:32 53809 aspirin medicatio n Not available Not available Not available 07/14/2022 1191 RxNorm Not Available [facility] 3 01:26:32 Medications Name Sig Start Date [...] DateTime 10/24/2022 154.94 cm Farhana THIERRY Cornell [facility] [employer] [facility] 10/24/2022 15:51:26 Date Recorded Body mass index (BMI) Body height Oxygen saturation Oxygen saturation in Arterial blood by Pulse oximetry Heart rate Body temperature Body weight Systolic And Diastolic Provider Name and Address Organization Details Last Updated DateTime 2 27.3 kg/m2 154.94 cm 100 % 100 % 84 /min 98 [degF] 98371.7 4 g 140/80 mm[Hg] Not Available [facility] 3 01:25:11 Date Recorded Body height Provider Name an d Address Organization Details Last Updated DateTime 03/17/2023 154.94 cm Lacey Nguyễn CNA [facility] [employer] 03/17/2023 14:14:17 Date Recorded Body mass index (BMI) Body height Heart rate Body temperature Body weight Systolic And Diastolic Provider Name and Address Organization Details Last Updated DateTime 2 27.1 kg/m2 154.94 cm 83 /min 97.3 [degF] 46586.8 6 g 122/78 mm[Hg] Not Available [facility] 3 01:25:11 Social History Question Answer Notes LastModified by Organizat ion Details LastModified Time Tobacco Smoking Status Former Smoker Not Available [facility] 07/14/2022 01:24:26 What Is Your Level Of Caffeine Consumption? Moderate [id number] Information not available 07/14/2022 What Type Of Diet Are You Following? REGULAR [id number] Information not available 07/14/2022 Do You Have A Medical Power Of Plaster Caster? Yes Harsha (Oldest Son) [id number] Information not available 07/14/2022 What Is Your Relationship Status? [id number] Information not available 07/14/2022 Sex: Female Functional Status Question Answer Note LastModified by Organizat ion Details LastModified Time Do you or have you ever used any other forms of tobacco or nicotine? No [id number] Information not available 07/14/2022 What is your level of alcohol consumption? Moderate [id number] 26 Information not available 07/14/2022 What is your exercise level? Occasional [id number] 26 Information not available 07/14/2022 Mental Status None recorded. Family History Relationship Description Onset Age of this Age Resolved Age Notes LastModified by Organization Details LastModified Time Mother Diabetes mellitus [id number] Not available 07/14/2022 01:24:37 Father Myocardial infarction [id number] Not available 07/14/2022 01:24:37 Medical History Condition Response CANCER: SPECIFY EYE PROBLEMS Y GI PROBLEMS Y GERD/NAUSEA Y DIZZINESS Y DEPRESSION (INCLUDING POST ) Y INSOMNIA Y HAVE YOU BEEN HOSPITALIZED OR SEEN IN [facility] ER IN THE PAST YEAR ? Y HIGH CHOLESTEROL / HYPERLIPIDEMIA Y Gynecological HistoryNo gynecological history recorded. Obstetrics History GPAL:G 0 P 0 0 0 0 Past Encounters Encounter ID Performer Location Encounter Start Date Encounter Closed Date Diagnosis/Indication Diagnosis SNOMED-CT Code Diagnosis ICD10 Code Diagnosis Note [id number] [facility] [place] [address] [place] [address] 01/31/2022 00:00:00 01/31/2022 14:00:13 [id number] Melony Doll MD [facility] [place] [address] [place] [address] 03/21/2022 00:00:00 03/21/2022 11:41:23 [id number] Gabino Turner MD [facility] [place] [address] [place] [address] 10/24/2022 15:15:54 10/24/2022 18:12:59 Pain of right hip joint 3376912871 30809 M25.762 [id number] Gabino Turner MD [facility] [place] [address] [place] [address] 03/17/2023 14:11:02 03/17/2023 15:07:11 Pain of right hip joint 7203706246 17470 M25.551 Health Concerns Section Related Observation LastModified by Organization Detai ls LastModified Time None Recorded Concern Status LastModified by Organization Details LastModified Time None Recorded Advance Directives Directive None Recorded Payers Insurance Date Sequence Insurance Name Policy Number Policy Garcia Covered Member ID Garcia Member ID Guarantor Name 10/13/2022 1 [facility] (MEDICARE REPLACEMENT/A DVANTAGE - PPO) Cuca Acevedo [id number] Cuca Acevedo 03/23/2023 1 [employer] (MEDICARE REPLACEMENT/A DVANTAGE - PPO) [id number] Cuca Acevedo [id number] Cuca Acevedo OBGyn Episode No OBEpisode recorded.
[2024-11-20 12:11] VITALS: BP 154/71; PULSE 85; RESP 16; TEMP 36.4; O2SAT 98
--- OUTSIDE RECORDS SUMMARY | 2024-11-20 12:11 | XMS_ITS | Clinical Summary ---
Author Organization [employer] [facility] Address [address] [facility] Attn: Epic Prelude ADT ERNA MCKEON [address] Care Team Providers Care Sales Mgr Name Role Phone Unavailable Primary Care Provider [...] morning. 30 Tablet 5 06/17/2023 2:49 PM FILM CREW MEMBER 3 Active PARoxetine HCl (PAXIL) 40 mg tablet Take 1 Tablet (40 mg) by mouth daily in the morning. 30 Tablet 5 3 Active carbidopa-levod opa (SINEMET CR) 50-200 mg Controlled Release tablet Take 1 Tablet by mouth daily at bedtime. 90 Tablet 1 04/17/2023 2:26 PM FILM CREW MEMBER 3 Active loteprednol (LOTEMAX) 0.5 % suspension Administer 1 drop twice daily for 1 week in both eyes, and then once daily for 1 week in both eyes as directed 10 mL 1 01/11/2024 1:23 PM CDT 4 Active carbidopa-levod opa (SINEMET) 25-100 mg tablet Take 1 Tablet by mouth 3 times daily. 270 Tablet 1 07/20/2024 12:32 PM FILM CREW MEMBER 5 Active carbidopa-levod opa (SINEMET) 25-100 mg tablet Take 2 Tablets by mouth 3 times daily. 180 Tablet 5 11/06/2024 12:38 PM CDT 5 Active sertraline (ZOLOFT) 50 mg tablet Take 1 Tablet (50 mg) by mouth daily. 30 Tablet 2 11/06/2024 12:38 PM CDT 5 Active sertraline (ZOLOFT) 50 [...] mL 10/30/2024 12:12 PM CDT 5 Active Clotrimazole (MYCELEX) 10 mg Isiah DISSOLVE 1 TABLET IN MOUTH 5 TIMES DAILY FOR 14 DAYS. 70 Tablet 11/13/2024 11:39 AM CDT 5 Active Social History Tobacco Use [...] (1 of 2) 1999 OSTEOPOROSIS SCREENING 2014 RSV VACCINE (60+ or ) (1 - 1-dose 75+ series) 2024 INFLUENZA VACCINE (#1) 2024 Insurance RX AETNA Medicare Part D RX [employer] (INTERNAL) [facility]
--- OUTSIDE RECORDS SUMMARY | 2024-11-20 12:11 | XMS_ITS | Clinical Summary ---
Author Organization [facility] [address] [place] [address] Care Team Providers Care Gis Instructor Name Role Phone Rose Marie Henriquez MD Unavailable [phone] Rose Marie Henriquez MD Primary Care Provider [phone] Allergies Active Allergy Reactions Criticality Noted Date Comments Jvzpwuc-Khi-Efi Reductase Inhibitors Unknown 02/13/2018 Medications amoxicillin 500 mg tablet/capsule Activ e carbidopa-levod opa (SINEMET) 25-100 mg per tablet Take 2 Tablets by mouth 3 times daily. 180 tablet 5 09/05/2024 Active sertraline (ZOLOFT) 50 mg tablet Take 1 Tablet (50 mg) by mouth daily. 30 tablet 2 09/13/2024 Active Active Problems Problem Noted Date Diagnosed Date Parkinson's disease ([facility]) 01/16/2024 Recurrent major depression 07/13/2023 Coronary artery [...] : Myocardial Infarction Diabetes Mother Diabetes mellit us; Cause of : Diabetes mellitus Diabetes type [...] on file Legal Sex Female 8:48 PM ACCOUNTING OFFICER Gender Identity Not on file Sexual Orientation Not on file Obstetrics History Last Filed Vital Signs Vital Sign Reading Time Taken Comments Blood Pressure 124/70 07/16/2024 1:07 PM ACCOUNTING OFFICER Pulse 73 07/16/2024 1:07 PM ACCOUNTING OFFICER Temperature - - Respiratory Rate 17 07/16/2024 1:07 PM ACCOUNTING OFFICER Oxygen Saturation 98% 07/16/2024 1:07 PM ACCOUNTING OFFICER Inhaled Oxygen Concentration - - Weight 69.6 kg (153 lb 6.4 oz) 07/16/2024 1:07 P M ACCOUNTING OFFICER Height 154.9 cm (5' 1) 07/16/2024 1:07 PM ACCOUNTING OFFICER Body Mass Index 28.98 07/16/2024 1:07 PM ACCOUNTING OFFICER Plan of Treatment Health Maintenance Due Date [...] Td or Tdap) 10/24/2024 10/24/2014 Influenza Vaccine (#1) 2025 , 02/27/2020, 03/19/2018, Additional history exists Fall Risk [...] CDT Narrative 01/10/2017 4:37 PM CDT Acc#: [id number] KWAN [id number] - Screening Mamm W Anders [...] M.D. TECHNOLOGIST: SUKHDEV KEATING, TECHNOLOGIST MEDICAL IMAGING SCREW DRIVER OPERATOR: PSC TRANSCRIBE DATE/TIME: Jan 11 2017 4:48P RADIOLOGIST: ART SHELLEY M.D. READ ON: Jan 11 2017 4:53P ORDERING DR: LINDSEY MONTES DE OCA M.D. THIS DOCUMENT HAS BEEN ELECTRONICALLY SIGNED BY: ART SHELLEY M.D. ON: Jan 11 2017 4:48P Attending: LINDSEY MONTES DE OCA Requesting: LINDSEY MONTES DE OCA Requesting Attending Attending ID: [id number] Requesting ID: [id number] Report To 1 ID: Report To 1 Name: , Report To 1 FAX: -- Report To 2 ID: Report To 2 Name: , Report To 2 FAX: -- NextGen Order #: Procedure Note Miscellaneous, Not In File / Provider, MD Taya - 01/11/2017 Acc#: [id number] KWAN [id number] - Screening Mamm W Anders [...] M.D. TECHNOLOGIST: SUKHDEV KEATING, TECHNOLOGIST MEDICAL IMAGING SCREW DRIVER OPERATOR: [employer] TRANSCRIBE DATE/TIME: Jan 11 2017 4:48P RADIOLOGIST: ART SHELLEY M.D. READ ON: Jan 11 2017 4:53P ORDERING DR: LINDSEY MONTES DE OCA M.D. THIS DOCUMENT HAS BEEN ELECTRONICALLY SIGNED BY: ART SHELLEY M.D. ON: Jan 11 2017 4:48P Attending: LINDSEY MONTES DE OCA Requesting: LINDSEY MONTES DE OCA Requesting Attending Attending ID: [id number] Requesting ID: [id number] Report To 1 ID: Report To 1 Name: , Report To 1 FAX: -- Report To 2 ID: Report To 2 Name: , Report To 2 FAX: -- NextGen Order #: Lindsey Montes De Oca MD IMG MAMMO PROCEDURES Benita l Result from Last 3 Months or Most Recently Relevant to Health Maintenance Insurance AETNA MEDICARE AETNA MEDICARE Care Teams Gis Instructor Relationship Specialty Start Date End Date Rose Marie Henriquez MD PCP - General Family Medicine 12/07/17 Rose Marie Henriquez MD Referring Physician Family Medicine 12/07/17
[2024-11-20 13:37] LABS: Add Urine Microscopic? NO; Appearance Urine Clear (Clear); Glucose Urine UA Negative (Negative); Leukocyte Esterase Ur Negative LEU/UL (Negative); Nitrate Urine Negative (Negative); Specific Grav Ur 1.028 (1.001-1.035)
[2024-11-20 13:41] LABS: Hematocrit 38.4 % (37.0-47.0); Hemoglobin 12.1 g/dL (12.0-15.0); Immature Granulocyte Percent A 0.8 % (0-0.5); Lymphocytes Absolute Auto 1.48 K/mm3 (0.9-3.2); Mean Corpuscular HGB Conc 31.5 g/dl (32-36); Mean Corpuscular Hemoglobin 28.6 pg (26-34); Mean Corpuscular Volume 90.8 fl (80-100); Nucleated Red Blood Cells Absolute Auto 0.000 K/mm3 (0.0-0.012); Nucleated Red Blood Cells Perc 0.0 % (0.0-0.2); Platelet Count Result 314 k/mm3 (150-375); Red Blood Count 4.23 M/mm3 (4.2-5.4); White Blood Count 9.0 K/mm3 (4.5-10.0)
--- OUTSIDE RECORDS SUMMARY | 2024-11-20 13:47 | XMS_ITS | Clinical Summary ---
Author Organization [facility] Address [address] [facility] Attn: Epic Prelude ADT ERNA MCKEON [address] Care Team Providers Care Director Medical Safety Name Role Phone Unavailable Primary Care Provider [...] morning. 30 Tablet 5 06/17/2023 2:49 PM GARBAGE COLLECTOR 3 Active PARoxetine HCl (PAXIL) 40 mg tablet Take 1 Tablet (40 mg) by mouth daily in the morning. 30 Tablet 5 3 Active carbidopa-levod opa (SINEMET CR) 50-200 mg Controlled Release tablet Take 1 Tablet by mouth daily at bedtime. 90 Tablet 1 04/17/2023 2:26 PM GARBAGE COLLECTOR 3 Active loteprednol (LOTEMAX) 0.5 % suspension Administer 1 drop twice daily for 1 week in both eyes, and then once daily for 1 week in both eyes as directed 10 mL 1 01/11/2024 1:23 PM CDT 4 Active carbidopa-levod opa (SINEMET) 25-100 mg tablet Take 1 Tablet by mouth 3 times daily. 270 Tablet 1 07/20/2024 12:32 PM GARBAGE COLLECTOR 5 Active carbidopa-levod opa (SINEMET) 25-100 mg [...]
--- OUTSIDE RECORDS SUMMARY | 2024-11-20 13:47 | XMS_ITS | Clinical Summary ---
Author Organization [facility] [address] [place] [address] Care Team Providers Care Assistant Unit Forester Name Role Phone Rose Marie Henriquez MD Unavailable [phone] Rose Marie Henriquez MD Primary Care Provider [phone] Allergies Active Allergy Reactions Criticality Noted Date Comments Jckyozz-Trk-Ypf Reductase Inhibitors Unknown 02/13/2018 Medications amoxicillin 500 mg tablet/capsule Activ e carbidopa-levod opa (SINEMET) 25-100 mg per tablet Take 2 Tablets by mouth 3 times daily. 180 tablet 5 09/05/2024 Active sertraline (ZOLOFT) 50 mg tablet Take 1 Tablet (50 mg) by mouth daily. 30 tablet 2 09/13/2024 Active Active Problems Problem Noted Date Diagnosed Date Parkinson's disease ([facility]) 01/16/2024 Recurrent major depression 07/13/2023 [...] on file Legal Sex Female 8:48 PM DIRECTOR PACKAGING Gender Identity Not on file Sexual Orientation Not on file Obstetrics History Last Filed Vital Signs Vital Sign Reading Time Taken Comments Blood Pressure 124/70 07/16/2024 1:07 PM DIRECTOR PACKAGING Pulse 73 07/16/2024 1:07 PM DIRECTOR PACKAGING Temperature - - Respiratory Rate 17 07/16/2024 1:07 PM DIRECTOR PACKAGING Oxygen Saturation 98% 07/16/2024 1:07 PM DIRECTOR PACKAGING Inhaled Oxygen Concentration - - Weight 69.6 kg (153 lb 6.4 oz) 07/16/2024 1:07 P M DIRECTOR PACKAGING Height 154.9 cm (5' 1) 07/16/2024 1:07 PM DIRECTOR PACKAGING Body Mass Index 28.98 07/16/2024 1:07 PM DIRECTOR PACKAGING Plan of Treatment Health Maintenance Due Date [...] CDT Narrative 01/10/2017 4:37 PM CDT Acc#: [id number] KWAN [id number] - Screening Mamm W Anders [...] M.D. TECHNOLOGIST: SUKHDEV KEATING, TECHNOLOGIST MEDICAL IMAGING OPERATION AGENT: PSC TRANSCRIBE DATE/TIME: Jan 11 2017 4:48P RADIOLOGIST: ART SHELLEY M.D. READ ON: Jan 11 2017 4:53P ORDERING DR: LINDSEY MONTES DE OCA M.D. THIS DOCUMENT HAS BEEN ELECTRONICALLY SIGNED BY: ART SHELLEY M.D. ON: Jan 11 2017 4:48P Attending: LINDSEY MONTES DE OCA Requesting: LINDSEY MONTES DE OCA Requesting Attending Attending ID: [id number] Requesting ID: [id number] Report To 1 ID: Report To 1 Name: , Report To 1 FAX: -- Report To 2 ID: Report To 2 Name: , Report To 2 FAX: -- NextGen Order #: Procedure Note Miscellaneous, Not In File / Provider, MD Taya - 01/11/2017 Acc#: [id number] KWAN [id number] - Screening Mamm W Anders [...] M.D. TECHNOLOGIST: SUKHDEV KEATING, TECHNOLOGIST MEDICAL IMAGING OPERATION AGENT: [employer] TRANSCRIBE DATE/TIME: Jan 11 2017 4:48P RADIOLOGIST: ART SHELLEY M.D. READ ON: Jan 11 2017 4:53P ORDERING DR: LINDSEY MONTES DE OCA M.D. THIS DOCUMENT HAS BEEN ELECTRONICALLY SIGNED BY: ART SHELLEY M.D. ON: Jan 11 2017 4:48P Attending: LINDSEY MONTES DE OCA Requesting: LINDSEY MONTES DE OCA Requesting Attending Attending ID: [id number] Requesting ID: [id number] Report To 1 ID: Report To 1 Name: , Report To 1 FAX: -- Report To 2 ID: Report To 2 Name: , Report To 2 FAX: -- NextGen Order #: Lindsey Montes De Oca MD IMG MAMMO PROCEDURES Benita l Result from Last 3 Months or Most Recently Relevant to Health Maintenance Insurance AETNA MEDICARE AETNA MEDICARE Care Teams Assistant Unit Forester Relationship Specialty Start Date End Date Rose Marie Henriquez MD PCP - General Family Medicine 12/07/17 Rose Marie Henriquez MD Referring Physician Family Medicine 12/07/17
--- OUTSIDE RECORDS SUMMARY | 2024-11-20 13:47 | XMS_ITS | Referral Summary ---
Author Organization [facility] [address] [place] [address] Care Team Providers Care Steward/Stewardess Name Role Phone Rose Marie Henriquez MD Unavailable [phone] Rose Marie Henriquez MD Primary Care Provider [phone] Allergies Active Allergy Reactions Criticality Noted Date Comments Pechxvs-Wmj-Vgl Reductase Inhibitors Unknown 02/13/2018 Medications amoxicillin 500 mg tablet/capsule Activ e carbidopa-levod opa (SINEMET) 25-100 mg per tablet Take 2 Tablets by mouth 3 times daily. 180 tablet 5 09/05/2024 Active sertraline (ZOLOFT) 50 mg tablet Take 1 Tablet (50 mg) by mouth daily. 30 tablet 2 09/13/2024 Active Active Problems Problem Noted Date Diagnosed Date Parkinson's disease ([facility]) 01/16/2024 Recurrent major depression 07/13/2023 Coronary artery [...] on file Legal Sex Female 8:48 PM LOSS PREVENTION CONSULTANT Gender Identity Not on file Sexual Orientation Not on file Last Filed Vital Signs Vital Sign Reading Time Taken Comments Blood Pressure 124/70 07/16/2024 1:07 PM LOSS PREVENTION CONSULTANT Pulse 73 07/16/2024 1:07 PM LOSS PREVENTION CONSULTANT Temperature - - Respiratory Rate 17 07/16/2024 1:07 PM LOSS PREVENTION CONSULTANT Oxygen Saturation 98% 07/16/2024 1:07 PM LOSS PREVENTION CONSULTANT Inhaled Oxygen Concentration - - Weight 69.6 kg (153 lb 6.4 oz) 07/16/2024 1:07 P M LOSS PREVENTION CONSULTANT Height 154.9 cm (5' 1) 07/16/2024 1:07 PM LOSS PREVENTION CONSULTANT Body Mass Index 28.98 07/16/2024 1:07 PM LOSS PREVENTION CONSULTANT Plan of Treatment Not on file Procedures Procedure Name Priority Date/Time Associated Diagnosis Comments MAMMOGRAPHY, TOMOGRAPHY, BILATERAL Routine 01/10/2017 4:37 PM CDT from Last 3 Months or Most Recently Relevant to Health Maintenance Results * MAMMOGRAPHY, TOMOGRAPHY, BILATERAL (01/10/2017 4:37 PM CDT) Anatomical Region Laterality Modality Breast Bilateral Mammography 01/10/2017 4:37 PM CDT Narrative 01/10/2017 4:37 PM CDT Acc#: [id number] KWAN [id number] - Screening Mamm W Anders [...] M.D. TECHNOLOGIST: SUKHDEV KEATING, TECHNOLOGIST MEDICAL IMAGING HEDGE FUND ACCOUNTANT: PSC TRANSCRIBE DATE/TIME: Jan 11 2017 4:48P RADIOLOGIST: ART SHELLEY M.D. READ ON: Jan 11 2017 4:53P ORDERING DR: LINDSEY MONTES DE OCA M.D. THIS DOCUMENT HAS BEEN ELECTRONICALLY SIGNED BY: ART SHELLEY M.D. ON: Jan 11 2017 4:48P Attending: LINDSEY MONTES DE OCA Requesting: LINDSEY MONTES DE OCA Requesting Attending Attending ID: [id number] Requesting ID: [id number] Report To 1 ID: Report To 1 Name: , Report To 1 FAX: -- Report To 2 ID: Report To 2 Name: , Report To 2 FAX: -- NextGen Order #: Procedure Note Miscellaneous, Not In File / Provider, MD Taya - 01/11/2017 Acc#: [id number] KWAN [id number] - Screening Mamm W Anders [...] M.D. TECHNOLOGIST: SUKHDEV KEATING, TECHNOLOGIST MEDICAL IMAGING HEDGE FUND ACCOUNTANT: [employer] TRANSCRIBE DATE/TIME: Jan 11 2017 4:48P RADIOLOGIST: ART SHELLEY M.D. READ ON: Jan 11 2017 4:53P ORDERING DR: LINDSEY MONTES DE OCA M.D. THIS DOCUMENT HAS BEEN ELECTRONICALLY SIGNED BY: ART SHELLEY M.D. ON: Jan 11 2017 4:48P Attending: LINDSEY MONTES DE OCA Requesting: LINDSEY MONTES DE OCA Requesting Attending Attending ID: [id number] Requesting ID: [id number] Report To 1 ID: Report To 1 Name: , Report To 1 FAX: -- Report To 2 ID: Report To 2 Name: , Report To 2 FAX: -- NextGen Order #: Lindsey Montes De Oca MD IMG MAMMO PROCEDURES Benita l Result from Last 3 Months or Most Recently Relevant to Health Maintenance Insurance AETNA MEDICARE [facility] MEDICARE Care Teams Steward/Stewardess Relationship Specialty Start Date End Date Rose Marie Henriquez MD PCP - General Family Medicine 12/07/17 Rose Marie Henriquez MD Referring Physician Family Medicine 12/07/17
[2024-11-20 13:59] LABS: Alanine Aminotransferase 6 U/L (6-35); Albumin Level 3.9 g/dL (3.5-5.1); Alkaline Phosphatase 117 U/L (38-126); Anion Gap 6 mmol/L (4-12); Aspartate Amino Transferase 21 U/L (14-36); Bilirubin,Total 0.4 mg/dL (0.2-1.3); Blood Urea Nitrogen 15 mg/dL (7-17); Calcium 9.0 mg/dL (8.4-10.2); Carbon Dioxide 27 mmol/L (22-30); Chloride 105 mmol/L (98-107); Estimated CRCL calculation 60 ml/min; Estimated Glomerular Filt Rate > 60; Glucose 111 mg/dL (65-110); Potassium 4.3 mmol/L (3.4-5.0); Sodium 138 mmol/L (137-145); Total Protein 7.4 g/dL (6.3-8.2)
--- NOTE | 2024-11-20 14:35 | ED_ITS ---
HPI - General Adult General Chief complaint: Unspecified Stated complaint: shakiness, dehydration? Time Seen by Provider: 11/20/24 12:24 History of Present Illness HPI narrative: Patient is a 74-year-old female with history of Parkinson's disease who presents ER with shakiness. She has been having intermittent episodes over last few months. She has not seen her neurologist. She is concerned she may have worsening Parkinson's disease. She takes her carbidopa/levodopa scheduled and does not miss a dose. No fevers or chills or sweats. She has increased urination but no dysuria. No other changes. Reports mild anxiousness when she starts feeling shaky. Aching Related Data Home Medications ?Medication ?Instructions ?Recorded ?Confirmed ?Last Taken ?Type carbidopa 25 mg-levodopa 100 mg 2 tablet PO TID 06/04/24 10/29/24 Unknown History tablet Allergies Allergy/AdvReac Type Severity Reaction Status Date / Time aspirin AdvReac Mild BLEEDING Verified 11/20/24 12:13 GUMS atorvastatin AdvReac Mild HAND Verified 11/20/24 12:13 MYALGIA simvastatin AdvReac Mild HAND Verified 11/20/24 12:13 MYALGIA Review of Systems 2 Review of Systems: All systems reviewed & are unremarkable except as noted in HPI and below Constitutional: Constitutional: Reports no additional constitutional complaints Cardiovascular: Cardiovascular: Reports no additional cardiovascular complaints Respiratory: Respiratory: Reports no additional respiratory complaints Gastrointestinal: Gastrointestinal: Reports no additional gastrointestinal complaints [facility] Past Medical History Medical History (Updated 11/20/24 @ 14:37 by Raghu Tran MD) Scalp irritation Parkinson disease Prediabetes Chronic constipation Mixed stress and urge urinary incontinence Diverticulitis Mixed hyperlipidemia Intolerant to statins Surgical History Surgical History Status post small bowel resection 06/17/21 History of bilateral salpingo-oophorectomy (BSO) History of vaginal hysterectomy Hx of Achilles tendon repair History of right cataract extraction H/O resection of large bowel Due to diverticulitis Family History Family History Mother , Age greater than 80 Diabetes mellitus Father , at age 89 Acute myocardial infarction Age greater than 80 Social History Social History (Reviewed 10/29/24 @ 10:[address]Stephen Social History: She has been since 2017. She was for 51 years prior to her 's . She has 3 adult sons. 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 She smoked a half a pack of cigarettes per day for 20 years but quit smoking in her late 30s. She drinks 1 mixed drink a night since her . She denies any illicit substance use. Primary care physician: Dr. Rose Marie Henriquez Code status: Full code Healthcare power of heating technician: Harsha (oldest son) Smoking status: Former smoker (smoked0.5 ppd 25 years and quit for 30 years) Tobacco type: cigarettes Second hand tobacco smoke exposure: No Smoking end date: 05/15/84 Alcohol intake: never Substance use: never Substance use type: does not use Lack of Transportation: No Lack of Food: Never True Current Housing: I Have Housing Concerned About Future Housing: No Difficulty Paying Gas/Electric Bills: No Difficulty Paying for Meds: No Currently Unemployed: No Education: Master's Degree or Higher Difficulty w/ Childcare or Family Care: No Living arrangements: with family Occupation/Education: retired Gender identity (if verbalized by the patient): Female Sexual Orientation (if Verbalized by the Patient): Straight or Heterosexual Spiritual care concerns: No Agree to blood products: Yes Exam 2 Narrative: GENERAL: Well-appearing, well-nourished, and in no acute distress. HEAD: Normocephalic, atraumatic. ENT: Mucous membranes moist. CHEST: Clear to auscultation. No respiratory distress. HEART: Regular rate and rhythm. Normal peripheral pulses. ABDOMEN: Soft, nontender, nondistended. EXTREMITIES: Normal range of motion. No edema. SKIN: Warm, dry, no rash. NEURO: Alert and oriented x3. PSYCH: Normal mood and affect. Course Course Emergency Course: Patient resting comfortably. No issues. Given reassurance and updated on lab work. Appropriate for discharge home follow-up with PCP/neurology. Vital Signs Vital signs: Vital Signs Temperature 97.6 F 11/20/24 12:11 Pulse Rate 85 11/20/24 12:11 Respiratory Rate 16 11/20/24 12:11 Blood Pressure 154/71 H 11/20/24 12:11 Pulse Oximetry 98 11/20/24 12:11 Temperature 97.6 F 11/20/24 12:11 Pulse Rate 85 11/20/24 12:11 Respiratory Rate 16 11/20/24 12:11 Blood Pressure 154/71 H 11/20/24 12:11 Pulse Oximetry 98 11/20/24 12:11 Medical Decision Making Vital Signs Vital Signs: Vital Signs Temperature 97.6 F 11/20/24 12:11 Pulse Rate 85 11/20/24 12:11 Respiratory Rate 16 11/20/24 12:11 Blood Pressure 154/71 H 11/20/24 12:11 Pulse Oximetry 98 11/20/24 12:11 Temperature 97.6 F 11/20/24 12:11 Pulse Rate 85 11/20/24 12:11 Respiratory Rate 16 11/20/24 12:11 Blood Pressure 154/71 H 11/20/24 12:11 Pulse Oximetry 98 11/20/24 12:11 Lab Data 11/20/24 13:34 11/20/24 13:34 Labs: Lab Results 11/20/24 11/20/24 Range/Units 13:05 13:34 WBC 9.0 (4.5-10.0) K/mm3 RBC 4.23 (4.2-5.4) M/mm3 Hgb 12.1 (12.0-15.0) g/dL Hct 38.4 (37.0-47.0) % MCV 90.8 (80-100) fl MCH 28.6 (26-34) pg MCHC 31.5 L (32-36) g/dl RDW 13.6 (11.5-14.5) % Plt Count 314 (150-375) k/mm3 MPV 9.4 (7.4-10.4) fl Immature Gran % (Auto) 0.8 H (0-0.5) % Neut % (Auto) 72.7 (45.5-73.1) % Lymph % (Auto) 16.5 L (18.3-44.2) % [place] % (Auto) 9.4 H (2.6-8.5) % Eos % (Auto) 0.3 (0-4.4) % Baso % (Auto) 0.3 (0.2-1.2) % Lymph # (Auto) 1.48 (0.9-3.2) K/mm3 [place] # (Auto) 0.8 H (0.1-0.6) K/mm3 Eos # (Auto) 0.0 (0-0.3) K/mm3 Baso # (Auto) 0.0 (0.0-0.1) K/mm3 Abs Immat Gran (auto) 0.07 H (0.00-0.031) K/mm3 Absolute Neuts (auto) 6.5 (1.3-6.7) K/mm3 Absolute Nucleated RBC 0.000 (0.0-0.012) K/mm3 Nucleated RBC % 0.0 (0.0-0.2) % Sodium 138 (137-145) mmol/L Potassium 4.3 (3.4-5.0) mmol/L Chloride 105 (98-107) mmol/L Carbon Dioxide 27 (22-30) mmol/L Anion Gap 6 (4-12) mmol/L BUN 15 (7-17) mg/dL Creatinine 0.60 L (0.7-1.0) mg/dL Estim Creat Clear Calc 60 ml/min Estimated GFR > 60 (59 - ) Glucose 111 H (65-110) mg/dL Calcium 9.0 (8.4-10.2) mg/dL Total Bilirubin 0.4 (0.2-1.3) mg/dL AST 21 (14-36) U/L ALT 6 (6-35) U/L Alkaline Phosphatase 117 (38-126) U/L Total Protein 7.4 (6.3-8.2) g/dL Albumin 3.9 (3.5-5.1) g/dL Urine Color Yellow (Yellow) Urine Appearance Clear (Clear) Urine pH 5.5 (5.0-9.0) Ur Specific Orient 1.028 (1.001-1.035) Urine Protein Negative (Negative) mg/dL Urine Glucose (UA) Negative (Negative) mg/dL Urine Ketones 1+ H (Negative) mg/dL Ur Blood (Man) Negative (Negative) Urine Nitrate Negative (Negative) Urine Bilirubin Negative (Negative) Urine Urobilinogen 0.2 (<2.0) mg/dL Leukocyte Esterase Rfl Negative (Negative) EDUARDO/UL Discharge Plan Discharge Clinical Impression: Parkinson's disease, Anxiousness Patient Disposition: Home Condition: Stable Instructions: Parkinson Disease (ED), Anxiety (ED) Additional Instructions: Follow-up with your PCP or your neurologist. Take Vistaril as needed for anxiousness. Return the ER if you have fever 100.4? F, have chest pain shortness of breath, or you have additional concerns. Patient Language: Hebrew Prescriptions: New hydroxyzine pamoate 25 mg capsule 25 mg PO BID PRN (Reason: anxiety) Qty: 14 0RF No Action carbidopa-levodopa 25-100 mg tablet 2 tablet PO TID clobetasol 0.05 % solution 1 applic topical QHS Qty: 50 1RF Rx Instructions: Apply to itchy areas of scalp. sertraline 50 mg tablet 50 mg PO DAILY Qty: 30 2RF cholecalciferol (vitamin D3) 25 mcg (1,000 unit) capsule 25 mcg PO DAILY Qty: 30 0RF clotrimazole 10 mg alta 10 mg mucous membrane .Five times daily 14 Days Qty: 70 0RF Rx Instructions: Dissolve in mouth Follow-up/Referrals: Rose Marie Henriquez MD [Primary Care Provider] - 1 Week
[2024-11-20 14:51] VITALS: BP 148/61; PULSE 76; RESP 12; O2SAT 98
== END 2024-11-20 14:54 | disposition home or self-care (01) ==
PROVIDERS: Emergency Provider Emergency Medicine; PCP Family Medicine
DX: F41.9 Anxiety disorder, unspecified (principal); G20.A1 Parkinson's disease without dyskinesia, without mention of fluctuations; E78.5 Hyperlipidemia, unspecified
CPT/HCPCS: 36415; 80053; 81003; 85025; 99283

== ENCOUNTER 2024-12-08 08:24 | Emergency (ER) | payer MEDICARE, SELFPAY ==
--- NOTE | ~2024-12-08 | CT_ITS ---
CLINICAL INDICATION: Abdominal pain, nausea and vomiting COMPARISON: 06/16/2021. TECHNIQUE: Multiple contiguous axial images of the abdomen and pelvis were performed following the ad ministration of with 100 mL Omnipaque-350 intravenous contrast The dose-length product (DLP) was 232.54 mGy-cm. Automated exposure control and iterative reconstruction technique were employed. FINDINGS/OBSERVATIONS: Visualized lower thorax: The bilateral lung bases are clear. The heart is of normal size, without pericardial effusion. Small hiatal hernia is present. Liver: The liver demonstrates homogeneous enhancement and is not enlarged. The 11 mm cyst described on previous examination is not visualized on today's study. Benign focal fatty sparing is present within segment 4. Gallbladder and biliary system: The gallbladder is only minimally distended, and otherwise unremarkable. Pancreas: The pancreas enhances homogeneously without ductal dilatation. Spleen: The spleen enhances homogeneously and is not enlarged. Kidneys: Pararenal cysts within the left kidney. The remainder of the bilateral kidneys otherwise enhance symmetrically without hydronephrosis or andry l calculi. Adrenal glands: Redemonstration of a well-circumscribed focus of soft tissue attenuation within the left adrenal glan d, minimally increased in size when compared with previous study measuring 27 mm, as compared to 25 m m. The right adrenal gland is unremarkable. Gastrointestinal tract: Enteric staple line within the mid abdomen. Colonic diverticulosis without surrounding inflammatory change. No small bowel dilatation is appreciated. Appendix: The appendix is not definitively visualized. However, no pericecal inflammatory change is identified suggest the presence of acute appendicitis. Vasculature: Densely calcified atherosclerotic disease Lymph nodes: No pathologically enlarged or morphologically suspicious lymph nodes within the retroperitoneum or at the root of the mesentery. Pelvic structures: The bladder is decompressed, limiting its evaluation. The uterus is atrophic or surgically absent. Body wall and musculoskeletal: Age-appropriate degenerative disease within the lower thoracic and lumbosacral spine IMPRESSION: Continued increase in size of an indeterminate mass within the left adrenal gland for which nonemerge nt follow-up cross-sectional imaging with adrenal mass protocol is recommended for further evaluation . No bowel obstruction. Colonic diverticulosis without inflammation. Reviewed, dictated and finalized at location A. IMPRESSION: Continued increase in size of an indeterminate mass within the left adrenal gla nd for which nonemergent follow-up cross-sectional imaging with adrenal mass pr otocol is recommended for further evaluation. No bowel obstruction. Colonic diverticulosis without inflammation.
--- OUTSIDE RECORDS SUMMARY | 2024-12-08 08:27 | XMS_ITS | Clinical Summary ---
Author Organization [facility] Address [address] Attn: Epic Prelude ADT [place] [address] Care Team Providers Care Grinder Outside Diameter Name Role Phone Unavailable Primary Care Provider Unavailabl e Allergies No known active allergies Medications carbidopa-levo dopa (SINEMET) 25-100 mg tablet Take 1 tablet by mouth 3 (three) times a day 180 Tablet 5 03/28/20 22 Active triamcinolone acetonide (KENALOG) 0.1 % Cream APPLY TWICE DAILY TO ITCHY RASH AREAS ON BACK DIRECTED. 454 Gram 3 3:30 PM CDT 08/09/19 23 Active acetaminophen 325 mg Capsule Take 325 mg by mouth every 6 hours as needed. 30 Capsule 09/16/19 23 Active carbidopa (LODOSYN) 25 mg Tablet Take 1 Tablet (25 mg) by mouth 3 times daily. 90 Tablet 5 3 12:59 PM CDT 10/01/19 23 Active doxycycline hyclate (VIBRAMYCIN) 50 mg Capsule Take 1 Capsule (50 mg) by mouth 2 times daily for 3 months for rosacea. Start after finishing amoxicillin. 60 Capsule 2 3 12:59 PM CDT 10/05/19 23 Active PARoxetine HCl (PAXIL) 40 mg tablet Take 1 Tablet (40 mg) by mouth daily in the morning. 30 Tablet 5 4 2:49 PM FISHING INSTRUCTOR 12/31/19 23 Active PARoxetine HCl (PAXIL) 40 mg tablet Take 1 Tablet (40 mg) by mouth daily in the morning. 30 Tablet 5 01/12/20 23 Active carbidopa-levo dopa (SINEMET CR) 50-200 mg Controlled Release tablet Take 1 Tablet by mouth daily at bedtime. 90 Tablet 1 3 2:26 PM FISHING INSTRUCTOR 01/12/20 23 Active loteprednol (LOTEMAX) 0.5 % suspension Administer 1 drop twice daily for 1 week in both eyes, and then once daily for 1 week in both eyes as directed 10 mL 1 4 1:23 PM CDT 01/09/20 24 Active carbidopa-levo dopa (SINEMET) 25-100 mg tablet Take 1 Tablet by mouth 3 times daily. 270 Tablet 1 5 12:32 PM FISHING INSTRUCTOR 07/17/19 25 Active carbidopa-levo dopa (SINEMET) 25-100 mg tablet Take 2 Tablets by mouth 3 times daily. 180 Tablet 5 5 12:38 PM CDT 09/06/19 25 Active sertraline (ZOLOFT) 50 mg tablet Take 1 Tablet (50 mg) by mouth daily. 30 Tablet 2 09/14/19 25 Active clobetasoL (TEMOVATE) 0.05 % Solution Apply to itchy areas of scalp once daily at bedtime 50 mL 1 5 12:12 PM CDT 10/30/19 25 Active nystatin (MYCOSTATIN) 100,000 unit/mL suspension Swish and swallow 5 mL by mouth four times daily for 14 days 280 mL 5 12:12 PM CDT 10/30/19 25 Active Clotrimazole (MYCELEX) 10 mg Isiah DISSOLVE 1 TABLET IN MOUTH 5 TIMES DAILY FOR 14 DAYS. 70 Tablet 5 11:39 AM CDT 11/09/19 25 Active hydrOXYzine pamoate (VISTARIL) 25 mg capsule Take 1 Capsule (25 mg) by mouth 2 times daily as needed for anxiety. 14 Capsule 5 11:50 AM CDT 11/21/19 25 Active sertraline (ZOLOFT) 50 mg tablet Take 1 Tablet (50 mg) by mouth daily. 30 Tablet 2 5 12:58 PM CDT 12/06/19 25 Active sertraline (ZOLOFT) 50 mg tablet Take 1 Tablet (50 mg) by mouth daily. 30 Tablet 2 5 12:38 PM CDT 09/14/19 25 025 Discontinued Social History Tobacco Use Types Packs/Day Years [...]
--- OUTSIDE RECORDS SUMMARY | 2024-12-08 08:27 | XMS_ITS | Data Portability ---
Author Organization [place] [facility] [employer], Main Office Address [address] [place] [address] Care Team Providers Care Scouring Train Operator Chief Name Role Phone RAGHU BHATIA Primary Care Provider RAGHU BHATIA Referring Provider [phone] Assessment Encounter Date Assessment Date Assessment LastModified [...] several ways to do this for her. Ivxb-tij-pmpcvuc anti-inflammator ies can be beneficial as well [...] patient more than half of this in [id number] conversation aidan Not available 10/24/2022 17:00:48 03/17/2023 [...] treatment patient more half of this in drup-oc-zrap conversation Not available 03/17/2023 15:04:55 Plan of Treatment Reminders Order Date Submit Date Provider Last Modified By Organization Details Last Modified Time Details Appointments None recorded. Lab None recorded. Referral None recorded. Procedures None recorded. Surgeries None recorded. Imaging XR, hip + pelvis, unilateral 2022 023 [email or web address] [facility] [place], [address], [place], [address], 3 18:12:59 Medication Orders None recorded. Patient TargetsNo targets recorded. Patient InstructionsNo instructions recorded. Reason for Referral None Reported. Results Created Date Observation Date Name Description Value Unit Range Abnormal Flag Note LastModifiedBy Organization Detail LastModifiedTime 10/25/19 23 XR, hip + pelvi s, unila teral No observ ation record ed. [facility] [place] [address], [place], [address], 10/24/2022 16:57:13 Result Notes None recorded. Problems Name Problem SNOMED Code Status Onset Date Resolution Date Notes Provider Name and Address Organization Details Recorded Time Thyroid function tests abnormal 815638332 Active 2021 Not Available [facility] 3 01:25:24 Hypothyroi dism 61932579 Active 2021 Not Available [facility] 3 01:25:24 Pain of right hip joint 0252206408983 02 Active 2022 THIERRY Nicole [place] [facility] [employer] [facility] 3 15:54:27 Problem Notes None recorded. Procedures Surgical History Date Name Laterality Status Provider Name and Address Organization Details Recorded Time Hysterectomy completed Not Available [facility] 07/14/2022 01:24:33 procedure on intestine completed THIERRY Nicole [facility] [employer] [facility] 10/24/2022 15:53:22 Foot Surgery completed THIERRY Nicole [facility] [employer] [facility] 10/24/2022 15:53:34 Imaging Results None recorded. Procedure Notes None recorded. Medical Equipment None Reported. Allergies Allergen ID Allergen Name Allergen Category Reaction Reaction Severity Criticality Documentation Date Start Date Code Code System Note Provider Name and Address Organization Details Recorded Time 50600 simvastat in medicatio n Not available Not available Not available 07/14/2022 46268 RxNorm Not Available [facility] 3 01:26:32 53284 atorvasta tin medicatio n Not available Not available Not available 07/14/2022 86334 RxNorm Not Available [facility] 3 01:26:32 27752 aspirin medicatio n Not available Not available Not available 07/14/2022 1191 RxNorm Not Available [facility] 3 01:26:32 Medications Name Sig Start [...] DateTime 10/24/2022 154.94 cm Farhana THIERRY Cornell [facility] [employer] [facility] 10/24/2022 15:51:26 Date Recorded Body mass index (BMI) Body height Oxygen saturation Oxygen saturation in Arterial blood by Pulse oximetry Heart rate Body temperature Body weight Systolic And Diastolic Provider Name and Address Organization Details Last Updated DateTime 2 27.3 kg/m2 154.94 cm 100 % 100 % 84 /min 98 [degF] 71358.7 4 g 140/80 mm[Hg] Not Available [facility] 3 01:25:11 Date Recorded Body height Provider Name an d Address Organization Details Last Updated DateTime 03/17/2023 154.94 cm Lacey Nguyễn CNA [facility] [employer] 03/17/2023 14:14:17 Date Recorded Body mass index (BMI) Body height Heart rate Body temperature Body weight Systolic And Diastolic Provider Name and Address Organization Details Last Updated DateTime 2 27.1 kg/m2 154.94 cm 83 /min 97.3 [degF] 80700.8 6 g 122/78 mm[Hg] Not Available [facility] 3 01:25:11 Social History Question Answer Notes LastModified by Organizat ion Details LastModified Time Tobacco Smoking Status Former Smoker Not Available [facility] 07/14/2022 01:24:26 What Is Your Level Of Caffeine Consumption? Moderate [id number] Information not available 07/14/2022 What Type Of Diet Are You Following? REGULAR [id number] Information not available 07/14/2022 Do You Have A Medical Power Of Portrait Artist? Yes Harsha (Oldest Son) [id number] Information not available 07/14/2022 What Is Your Relationship Status? [id number] Information not available 07/14/2022 Sex: Female Functional Status Question Answer Note LastModified by Organizat ion Details LastModified Time Do you or have you ever used any other forms of tobacco or nicotine? No [id number] Information not available 07/14/2022 What is your level of alcohol consumption? Moderate [id number] Information not available 07/14/2022 What is your exercise level? Occasional [id number] Information not available 07/14/2022 Mental Status None recorded. Family History Relationship Description Onset Age of this Age Resolved Age Notes LastModified by Organization Details LastModified Time Mother Diabetes mellitus [id number] Not available 07/14/2022 01:24:37 Father Myocardial infarction [id number] Not available 07/14/2022 01:24:37 Medical History Condition Response INSOMNIA Y HIGH CHOLESTEROL / HYPERLIPIDEMIA Y EYE PROBLEMS Y DEPRESSION (INCLUDING POST ) Y HAVE YOU BEEN HOSPITALIZED OR SEEN IN [facility] ER IN THE PAST YEAR ? Y GERD/NAUSEA Y GI PROBLEMS Y DIZZINESS Y CANCER: SPECIFY Gynecological HistoryNo gynecological history recorded. Obstetrics History GPAL:G 0 P 0 0 0 0 Past Encounters Encounter ID Performer Location Encounter Start Date Encounter Closed Date Diagnosis/Indication Diagnosis SNOMED-CT Code Diagnosis ICD10 Code Diagnosis Note [id number] [facility] [place] [address] [place] [address] 01/31/2022 00:00:00 01/31/2022 14:00:13 [id number] Melony Doll MD [facility] [place] [address] [place] [address] 03/21/2022 00:00:00 03/21/2022 11:41:23 [id number] Gabino Turner MD [facility] [place] [address] [place] [address] 10/24/2022 15:15:54 10/24/2022 18:12:59 Pain of right hip joint 0496616580 87722 M25.497 [id number] Gabino Turner MD [facility] [place] [address] [place] [address] 03/17/2023 14:11:02 03/17/2023 15:07:11 Pain of right hip joint 2639138920 15199 M25.551 Health Concerns Section Related Observation LastModified by Organization Detai ls LastModified Time None Recorded Concern Status LastModified by Organization Details LastModified Time None Recorded Advance Directives Directive None Recorded Payers Insurance Date Sequence Insurance Name Policy Number Policy Garcia Covered Member ID Garcia Member ID Guarantor Name 10/13/2022 1 [facility] (MEDICARE REPLACEMENT/A DVANTAGE - PPO) Cuca Acevedo [id number] Cuca Acevedo 03/23/2023 1 [employer] (MEDICARE REPLACEMENT/A DVANTAGE - PPO) [id number] Cuca Acevedo [id number] Cuca Acevedo OBGyn Episode No OBEpisode recorded.
--- OUTSIDE RECORDS SUMMARY | 2024-12-08 08:27 | XMS_ITS | Clinical Summary ---
Author Organization [facility] [address] [place] [address] Care Team Providers Care Site Supervising Technical Operator Name Role Phone Rose Marie Henriquez MD Unavailable [phone] Rose Marie Henriquez MD Primary Care Provider [phone] Allergies Active Allergy Reactions Criticality Noted Date Comments Mmbcybl-Gtb-Mpj Reductase Inhibitors Unknown 02/13/2018 Medications amoxicillin 500 mg tablet/capsule Activ e carbidopa-levo dopa (SINEMET) 25-100 mg per tablet Take 2 Tablets by mouth 3 times daily. 180 tablet 5 5 Active sertraline (ZOLOFT) 50 mg tablet Take 1 Tablet (50 mg) by mouth daily. 30 tablet 2 5 Active sertraline (ZOLOFT) 50 mg tablet Take 1 Tablet (50 mg) by mouth daily. 30 tablet 2 5 12/06/19 25 Discontinued Active Problems Problem Noted Date Diagnosed Date Parkinson's disease ([facility]) 01/16/2024 Recurrent major depression 07/13/2023 Coronary artery disease with angina pectoris 06/2017 Awareness of heartbeats 10/12/2016 Overview (10/14/2016): Palpitations History of hysterectomy for benign disease 10/12 Overview (10/14/2016): History of hysterectomy for benign disease Adiposity 10/12/2016 Overview (10/14/2016): Obesity Former smoker 10/12/2016 Overview (10/14/2016): Former smoker Multiple-type hyperlipidemia 02/25/2016 Overview (08/18/2016): Mixed hyperlipidemia Encounters Date Type Department Care Team Description 11/29/2024 Telephone [facility] [address] [address] Jarrett Dickinson II, MD Medication [...] on file Legal Sex Female 8:48 PM CANCER PROGRAM DIRECTOR Gender Identity Not on file Sexual Orientation Not on file Obstetrics History Last Filed Vital Signs Vital Sign Reading Time Taken Comments Blood Pressure 124/70 07/16/2024 1:07 PM CANCER PROGRAM DIRECTOR Pulse 73 07/16/2024 1:07 PM CANCER PROGRAM DIRECTOR Temperature - - Respiratory Rate 17 07/16/2024 1:07 PM CANCER PROGRAM DIRECTOR Oxygen Saturation 98% 07/16/2024 1:07 PM CANCER PROGRAM DIRECTOR Inhaled Oxygen Concentration - - Weight 69.6 kg (153 lb 6.4 oz) 07/16/2024 1:07 P M CANCER PROGRAM DIRECTOR Height 154.9 cm (5' 1) 07/16/2024 1:07 PM CANCER PROGRAM DIRECTOR Body Mass Index 28.98 07/16/2024 1:07 PM CANCER PROGRAM DIRECTOR Plan of Treatment Health Maintenance Due Date [...] CDT Narrative 01/10/2017 4:37 PM CDT Acc#: [id number] [facility] [id number] - Screening Mamm W Anders Bi [...] M.D. TECHNOLOGIST: SUKHDEV KEATING TECHNOLOGIST MEDICAL IMAGING DIRECTOR OF CORPORATE STRATEGY: [facility] TRANSCRIBE DATE/TIME: Jan 11 2017 4:48P RADIOLOGIST: ART SHELLEY M.D. READ ON: Jan 11 2017 4:53P ORDERING DR: LINDSEY MONTES DE OCA M.D. THIS DOCUMENT HAS BEEN ELECTRONICALLY SIGNED BY: ART SHELLEY M.D. ON: Jan 11 2017 4:48P Attending: LINDSEY MONTES DE OCA Requesting: LINDSEY MONTES DE OCA Requesting Attending Attending ID: [id number] Requesting ID: [id number] Report To 1 ID: Report To 1 Name: , Report To 1 FAX: -- Report To 2 ID: Report To 2 Name: , Report To 2 FAX: -- NextGen Order #: Procedure Note Miscellaneous, Not In File / Provider, MD Taya - 01/11/2017 Acc#: [id number] [facility] 0047 - Screening Mamm W Anders [...] M.D. TECHNOLOGIST: SUKHDEV KEATING, TECHNOLOGIST MEDICAL IMAGING DIRECTOR OF CORPORATE STRATEGY: [facility] TRANSCRIBE DATE/TIME: Jan 11 2017 4:48P RADIOLOGIST: ART SHELLEY M.D. READ ON: Jan 11 2017 4:53P ORDERING DR: LINDSEY MONTES DE OCA M.D. THIS DOCUMENT HAS BEEN ELECTRONICALLY SIGNED BY: ART SHELLEY M.D. ON: Jan 11 2017 4:48P Attending: LINDSEY MONTES DE OCA Requesting: LINDSEY MONTES DE OCA Requesting Attending Attending ID: [id number] Requesting ID: [id number] Report To 1 ID: Report To 1 Name: , Report To 1 FAX: -- Report To 2 ID: Report To 2 Name: , Report To 2 FAX: -- NextGen Order #: Lindsey Montes De Oca MD IMG MAMMO PROCEDURES Benita l Result from Last 3 Months or Most Recently Relevant to Health Maintenance Insurance [facility] [employer] [employer] Care Teams Site Supervising Technical Operator Relationship Specialty Start Date End Date Rose Marie Henriquez MD PCP - General Family Medicine 12/07/17 Rose Marie Henriquez MD Referring Physician Family Medicine 12/07/17
--- OUTSIDE RECORDS SUMMARY | 2024-12-08 08:27 | XMS_ITS | Referral Summary ---
Author Organization [facility] Physician Office Building [address] [place] [phone] Care Team Providers Care Wildlife Policy Professional Name Role Phone Rose Marie Henriquez MD Unavailable [phone] Rose Marie Henriquez MD Primary Care Provider [phone] Encounters Date Type Department Care Team Description 11/29/[address] [facility] [id number] [place] [address] [place] [phone] Jarrett Dickinson II, MD Medication Problem from Last 3 Months Allergies Active Allergy Reactions Criticality Noted Date Comments Hctsfbc-Kwd-Iev Reductase Inhibitors Unknown 02/13/2018 Medications amoxicillin 500 [...] Problem Noted Date Diagnosed Date Parkinson's disease ([facility]/HCC) 01/16/2024 Recurrent major depression 07/13/2023 Coronary artery [...] on file Legal Sex Female 8:48 PM DISASTER RECOVERY MANAGER Gender Identity Not on file Sexual Orientation Not on file Last Filed Vital Signs Vital Sign Reading Time Taken Comments Blood Pressure 124/70 07/16/2024 1:07 PM DISASTER RECOVERY MANAGER Pulse 73 07/16/2024 1:07 PM DISASTER RECOVERY MANAGER Temperature - - Respiratory Rate 17 07/16/2024 1:07 PM DISASTER RECOVERY MANAGER Oxygen Saturation 98% 07/16/2024 1:07 PM DISASTER RECOVERY MANAGER Inhaled Oxygen Concentration - - Weight 69.6 kg (153 lb 6.4 oz) 07/16/2024 1:07 P M DISASTER RECOVERY MANAGER Height 154.9 cm (5' 1) 07/16/2024 1:07 PM DISASTER RECOVERY MANAGER Body Mass Index 28.98 07/16/2024 1:07 PM DISASTER RECOVERY MANAGER Plan of Treatment Not on file Procedures Procedure Name Priority Date/Time Associated Diagnosis Comments MAMMOGRAPHY, TOMOGRAPHY, BILATERAL Routine 01/10/2017 4:37 PM CDT from Last 3 Months or Most Recently Relevant to Health Maintenance Results * MAMMOGRAPHY, TOMOGRAPHY, BILATERAL (01/10/2017 4:37 PM CDT) Anatomical Region Laterality Modality Breast Bilateral Mammography 01/10/2017 4:37 PM CDT Narrative 01/10/2017 4:37 PM CDT Acc#: [id number] KWAN [id number] - Screening Mamm W Anders [...] M.D. TECHNOLOGIST: SUKHDEV KEATING, TECHNOLOGIST MEDICAL IMAGING CLERK FUNERAL DETAIL: [facility] TRANSCRIBE DATE/TIME: Jan 11 2017 4:48P RADIOLOGIST: ART SHELLEY M.D. READ ON: Jan 11 2017 4:53P ORDERING DR: LINDSEY MONTES DE OCA M.D. THIS DOCUMENT HAS BEEN ELECTRONICALLY SIGNED BY: ART SHELLEY M.D. ON: Jan 11 2017 4:48P Attending: LINDSEY MONTES DE OCA Requesting: LINDSEY MONTES DE OCA Requesting Attending Attending ID: [id number] Requesting ID: [id number] Report To 1 ID: Report To 1 Name: , Report To 1 FAX: -- Report To 2 ID: Report To 2 Name: , Report To 2 FAX: -- NextGen Order #: Procedure Note Miscellaneous, Not In File / Provider, MD Taya - 01/11/2017 Acc#: [id number] KWAN [id number] - Screening Mamm W Anders [...] M.D. TECHNOLOGIST: SUKHDEV KEATING, TECHNOLOGIST MEDICAL IMAGING CLERK FUNERAL DETAIL: [facility] TRANSCRIBE DATE/TIME: Jan 11 2017 4:48P RADIOLOGIST: ART SHELLEY M.D. READ ON: Jan 11 2017 4:53P ORDERING DR: LINDSEY MONTES DE OCA M.D. THIS DOCUMENT HAS BEEN ELECTRONICALLY SIGNED BY: ART SHELLEY M.D. ON: Jan 11 2017 4:48P Attending: LINDSEY MONTES DE OCA Requesting: LINDSEY MONTES DE OCA Requesting Attending Attending ID: [id number] Requesting ID: [id number] Report To 1 ID: Report To 1 Name: , Report To 1 FAX: -- Report To 2 ID: Report To 2 Name: , Report To 2 FAX: -- NextGen Order #: Lindsey Montes De Oca MD [facility] MAMMO PROCEDURES Benita l Result from Last 3 Months or Most Recently Relevant to Health Maintenance Insurance [employer] MEDICARE [facility] MEDICARE Care Teams Wildlife Policy Professional Relationship Specialty Start Date End Date Rose Marie Henriquez MD PCP - General Family Medicine 12/07/17 Rose Marie Henriquez MD Referring Physician Family Medicine 12/07/17
[2024-12-08 08:45] VITALS: BP 164/73; PULSE 79; RESP 18; O2SAT 99
--- NOTE | 2024-12-08 08:45 | PC.NURSE ---
Asked pt for urine sample. She attempted to give sample but was unable at this time.
--- OUTSIDE RECORDS SUMMARY | 2024-12-08 09:08 | XMS_ITS | Clinical Summary ---
Author Organization [employer] [facility] Address [address] [facility] Attn: Epic Prelude ADT ERNA MCKEON [address] Care Team Providers Care Brickmason Apprentice Name Role Phone Unavailable Primary Care Provider [...] morning. 30 Tablet 5 4 2:49 PM TELEVISION AGENT 12/31/19 23 Active PARoxetine HCl (PAXIL) 40 mg tablet Take 1 Tablet (40 mg) by mouth daily in the morning. 30 Tablet 5 01/12/20 23 Active carbidopa-levo dopa (SINEMET CR) 50-200 mg Controlled Release tablet Take 1 Tablet by mouth daily at bedtime. 90 Tablet 1 3 2:26 PM TELEVISION AGENT 01/12/20 23 Active loteprednol (LOTEMAX) 0.5 % suspension Administer 1 drop twice daily for 1 week in both eyes, and then once daily for 1 week in both eyes as directed 10 mL 1 4 1:23 PM CDT 01/09/20 24 Active carbidopa-levo dopa (SINEMET) 25-100 mg tablet Take 1 Tablet by mouth 3 times daily. 270 Tablet 1 5 12:32 PM TELEVISION AGENT 07/17/19 25 Active carbidopa-levo dopa (SINEMET) 25-100 [...]
--- OUTSIDE RECORDS SUMMARY | 2024-12-08 09:08 | XMS_ITS | Referral Summary ---
Author Organization [facility] Physician Office Building [address] [place] [phone] Care Team Providers Care Website Programmer Name Role Phone Rose Marie Henriquez MD Unavailable [phone] Rose Marie Henriquez MD Primary Care Provider [phone] Encounters Date Type Department Care Team Description 11/29/2024 Telephone [facility] [id number] [place] [address] [place] [phone] Jarrett Dickinson II, MD Medication Problem from Last 3 Months Allergies Active Allergy Reactions Criticality Noted Date Comments Zmpudiz-Irc-Xmj Reductase Inhibitors Unknown 02/13/2018 Medications amoxicillin 500 [...] Problem Noted Date Diagnosed Date Parkinson's disease ([facility]/HCC) 01/16/2024 Recurrent major depression 07/13/2023 Coronary artery [...] on file Legal Sex Female 8:48 PM ADVANCED MANAGER Gender Identity Not on file Sexual Orientation Not on file Last Filed Vital Signs Vital Sign Reading Time Taken Comments Blood Pressure 124/70 07/16/2024 1:07 PM ADVANCED MANAGER Pulse 73 07/16/2024 1:07 PM ADVANCED MANAGER Temperature - - Respiratory Rate 17 07/16/2024 1:07 PM ADVANCED MANAGER Oxygen Saturation 98% 07/16/2024 1:07 PM ADVANCED MANAGER Inhaled Oxygen Concentration - - Weight 69.6 kg (153 lb 6.4 oz) 07/16/2024 1:07 P M ADVANCED MANAGER Height 154.9 cm (5' 1) 07/16/2024 1:07 PM ADVANCED MANAGER Body Mass Index 28.98 07/16/2024 1:07 PM ADVANCED MANAGER Plan of Treatment Not on file Procedures Procedure Name Priority Date/Time Associated Diagnosis Comments MAMMOGRAPHY, TOMOGRAPHY, BILATERAL Routine 01/10/2017 4:37 PM CDT from Last 3 Months or Most Recently Relevant to Health Maintenance Results * MAMMOGRAPHY, TOMOGRAPHY, BILATERAL (01/10/2017 4:37 PM CDT) Anatomical Region Laterality Modality Breast Bilateral Mammography 01/10/2017 4:37 PM CDT Narrative 01/10/2017 4:37 PM CDT Acc#: [id number] KWAN [id number] - Screening Mamm W Anders [...] M.D. TECHNOLOGIST: SUKHDEV KEATING, TECHNOLOGIST MEDICAL IMAGING SALES REPRESENTATIVE: [facility] TRANSCRIBE DATE/TIME: Jan 11 2017 4:48P RADIOLOGIST: ART SHELLEY M.D. READ ON: Jan 11 2017 4:53P ORDERING DR: LINDSEY MONTES DE OCA M.D. THIS DOCUMENT HAS BEEN ELECTRONICALLY SIGNED BY: ART SHELLEY M.D. ON: Jan 11 2017 4:48P Attending: LINDSEY MONTES DE OCA Requesting: LINDSEY MONTES DE OCA Requesting Attending Attending ID: [id number] Requesting ID: [id number] Report To 1 ID: Report To 1 Name: , Report To 1 FAX: -- Report To 2 ID: Report To 2 Name: , Report To 2 FAX: -- NextGen Order #: Procedure Note Miscellaneous, Not In File / Provider, MD Taya - 01/11/2017 Acc#: [id number] KWAN 0047 - Screening Mamm W Anders [...] M.D. TECHNOLOGIST: SUKHDEV KEATING, TECHNOLOGIST MEDICAL IMAGING SALES REPRESENTATIVE: [facility] TRANSCRIBE DATE/TIME: Jan 11 2017 4:48P RADIOLOGIST: ART SHELLEY M.D. READ ON: Jan 11 2017 4:53P ORDERING DR: LINDSEY MONTES DE OCA M.D. THIS DOCUMENT HAS BEEN ELECTRONICALLY SIGNED BY: ART SHELLEY M.D. ON: Jan 11 2017 4:48P Attending: LINDSEY MONTES DE OCA Requesting: LINDSEY MONTES DE OCA Requesting Attending Attending ID: [id number] Requesting ID: [id number] Report To 1 ID: Report To 1 Name: , Report To 1 FAX: -- Report To 2 ID: Report To 2 Name: , Report To 2 FAX: -- NextGen Order #: Lindsey Montes De Oca MD [facility] MAMMO PROCEDURES Benita l Result from Last 3 Months or Most Recently Relevant to Health Maintenance Insurance A[employer] MEDICARE [facility] MEDICARE Care Teams Website Programmer Relationship Specialty Start Date End Date Rose Marie Henriquez MD PCP - General Family Medicine 12/07/17 Rose Marie Henriquez MD Referring Physician Family Medicine 12/07/17
--- OUTSIDE RECORDS SUMMARY | 2024-12-08 09:08 | XMS_ITS | Clinical Summary ---
Author Organization [facility] Physician Office Building [address] [place] [phone] Care Team Providers Care Preschool Assistant Name Role Phone Rose Marie Henriquez MD Unavailable [phone] Rose Marie Henriquez MD Primary Care Provider [phone] Allergies Active Allergy Reactions Criticality Noted Date Comments Tbyvvkv-Cgk-Imq Reductase Inhibitors Unknown 02/13/2018 Medications amoxicillin 500 [...] Date Diagnosed Date Parkinson's disease ([facility]) 01/16/2024 Recurrent major depression 07/13/2023 [...] Type Department Care Team Description 11/29/2024 Telephone [facility] [address] [phone] Jarrett Dickinson II, MD Medication [...] on file Legal Sex Female 8:48 PM MANAGER SIGN Gender Identity Not on file Sexual Orientation Not on file Obstetrics History Last Filed Vital Signs Vital Sign Reading Time Taken Comments Blood Pressure 124/70 07/16/2024 1:07 PM MANAGER SIGN Pulse 73 07/16/2024 1:07 PM MANAGER SIGN Temperature - - Respiratory Rate 17 07/16/2024 1:07 PM MANAGER SIGN Oxygen Saturation 98% 07/16/2024 1:07 PM MANAGER SIGN Inhaled Oxygen Concentration - - Weight 69.6 kg (153 lb 6.4 oz) 07/16/2024 1:07 P M MANAGER SIGN Height 154.9 cm (5' 1) 07/16/2024 1:07 PM MANAGER SIGN Body Mass Index 28.98 07/16/2024 1:07 PM MANAGER SIGN Plan of Treatment Health Maintenance Due Date [...] CDT Narrative 01/10/2017 4:37 PM CDT Acc#: [id number] [facility] 0047 - Screening Mamm W Anders [...] M.D. TECHNOLOGIST: SUKHDEV KEATING TECHNOLOGIST MEDICAL IMAGING RESIDENCE LEASING AGENT: [facility] TRANSCRIBE DATE/TIME: Jan 11 2017 4:48P RADIOLOGIST: ART SHELLEY M.D. READ ON: Jan 11 2017 4:53P ORDERING DR: LINDSEY MONTES DE OCA M.D. THIS DOCUMENT HAS BEEN ELECTRONICALLY SIGNED BY: ART SHELLEY M.D. ON: Jan 11 2017 4:48P Attending: LINDSEY MONTES DE OCA Requesting: LINDSEY MONTES DE OCA Requesting Attending Attending ID: [id number] Requesting ID: [id number] Report To 1 ID: Report To 1 Name: , Report To 1 FAX: -- Report To 2 ID: Report To 2 Name: , Report To 2 FAX: -- NextGen Order #: Procedure Note Miscellaneous, Not In File / Provider, MD Taya - 01/11/2017 Acc#: [id number] KWAN 0047 - Screening Mamm W Anders [...] M.D. TECHNOLOGIST: SUKHDEV KEATING, TECHNOLOGIST MEDICAL IMAGING RESIDENCE LEASING AGENT: PSYCHIATRIC TRANSCRIBE DATE/TIME: Jan 11 2017 4:48P RADIOLOGIST: ART SHELLEY M.D. READ ON: Jan 11 2017 4:53P ORDERING DR: LINDSEY MONTES DE OCA M.D. THIS DOCUMENT HAS BEEN ELECTRONICALLY SIGNED BY: ART SHELLEY M.D. ON: Jan 11 2017 4:48P Attending: LINDSEY MONTES DE OCA Requesting: LINDSEY MONTES DE OCA Requesting Attending Attending ID: [id number] Requesting ID: [id number] Report To 1 ID: Report To 1 Name: , Report To 1 FAX: -- Report To 2 ID: Report To 2 Name: , Report To 2 FAX: -- NextGen Order #: Lindsey Montes De Oca MD [facility] MAMMO PROCEDURES Benita l Result from Last 3 Months or Most Recently Relevant to Health Maintenance Insurance [facility] MEDICARE [facility] MED[facility] Care Teams Preschool Assistant Relationship Specialty Start Date End Date Rose Marie Henriquez MD PCP - General Family Medicine 12/07/17 Rose Marie Henriquez MD Referring Physician Family Medicine 12/07/17
[2024-12-08 09:30] LABS: Hematocrit 41.4 % (37.0-47.0); Hemoglobin 13.4 g/dL (12.0-15.0); Immature Granulocyte Percent A 0.7 % (0-0.5); Lymphocytes Absolute Auto 1.29 K/mm3 (0.9-3.2); Mean Corpuscular HGB Conc 32.4 g/dl (32-36); Mean Corpuscular Hemoglobin 29.2 pg (26-34); Mean Corpuscular Volume 90.2 fl (80-100); Nucleated Red Blood Cells Absolute Auto 0.000 K/mm3 (0.0-0.012); Nucleated Red Blood Cells Perc 0.0 % (0.0-0.2); Platelet Count Result 289 k/mm3 (150-375); Red Blood Count 4.59 M/mm3 (4.2-5.4); White Blood Count 9.0 K/mm3 (4.5-10.0)
[2024-12-08 10:00] LABS: Alanine Aminotransferase 21 U/L (6-35); Albumin Level 4.3 g/dL (3.5-5.1); Alkaline Phosphatase 119 U/L (38-126); Anion Gap 9 mmol/L (4-12); Aspartate Amino Transferase 26 U/L (14-36); Bilirubin,Total 0.7 mg/dL (0.2-1.3); Blood Urea Nitrogen 13 mg/dL (7-17); Calcium 9.4 mg/dL (8.4-10.2); Carbon Dioxide 26 mmol/L (22-30); Chloride 104 mmol/L (98-107); Estimated CRCL calculation 56 ml/min; Estimated Glomerular Filt Rate > 60; Glucose 122 mg/dL (65-110); Lipase 39 U/L (23-300); Potassium 4.0 mmol/L (3.4-5.0); Sodium 139 mmol/L (137-145); Total Protein 7.8 g/dL (6.3-8.2)
--- NOTE | 2024-12-08 10:12 | ED_ITS ---
HPI - General Adult General Chief complaint: Nausea/Vomiting/Diarrhea Stated complaint: nausea x 3-4 days Time Seen by Provider: 12/08/24 08:48 History of Present Illness HPI narrative: 74-year-old female presented to the emergency department for evaluation for abdominal pain nausea without vomiting and alternating constipation and diarrhea. Patient does have Parkinson's and does take levodopa. Patient reports she has had increased dry mouth and so she has been taking up to 15 lozenges a day in states this started bothering her stomach. Patient reports she had approximately 4 days of constipation and took multiple doses of Ex-Lax and then had multiple days diarrhea and patient stop taking her stool softeners and now she reports she has not had a bowel movement for the last 4 days. Patient does describe lower abdominal discomfort. Related Data Home Medications ?Medication ?Instructions ?Recorded ?Confirmed ?Last Taken ?Type carbidopa 25 mg-levodopa 100 mg 2 tablet PO TID 06/04/24 10/29/24 Unknown History tablet Allergies Allergy/AdvReac Type Severity Reaction Status Date / Time aspirin AdvReac Mild BLEEDING Verified 12/08/24 08:48 GUMS atorvastatin AdvReac Mild HAND Verified 12/08/24 08:48 MYALGIA simvastatin AdvReac Mild HAND Verified 12/08/24 08:48 MYALGIA Review of Systems 2 Review of Systems: All systems reviewed & are unremarkable except as noted in HPI and below PMFSH Past Medical History Medical History (Updated 12/08/24 @ 11:23 by Latrell Bernard MD) Scalp irritation Parkinson disease Prediabetes Chronic constipation Mixed stress and urge urinary incontinence Diverticulitis Mixed hyperlipidemia Intolerant to statins Surgical History Surgical History Status post small bowel resection 06/17/21 History of bilateral salpingo-oophorectomy (BSO) History of vaginal hysterectomy Hx of Achilles tendon repair History of right cataract extraction H/O resection of large bowel Due to diverticulitis Family History Family History Mother , Age greater than 80 Diabetes mellitus Father , at age 89 Acute myocardial infarction Age greater than 80 Social History Social History Social History: She has been since 2017. She was for 51 years prior to her 's . She has 3 adult sons. 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 She smoked a half a pack of cigarettes per day for 20 years but quit smoking in her late 30s. She drinks 1 mixed drink a night since her . She denies any illicit substance use. Primary care physician: Dr. Rose Marie Henriquez Code status: Full code Healthcare power of infectious disease physician: Harsha (oldest son) Smoking status: Former smoker (smoked0.5 ppd 25 years and quit for 30 years) Tobacco type: cigarettes Second hand tobacco smoke exposure: No Smoking end date: 05/15/84 Alcohol intake: never Substance use: never Substance use type: does not use Lack of Transportation: No Lack of Food: Never True Current Housing: I Have Housing Concerned About Future Housing: No Difficulty Paying Gas/Electric Bills: No Difficulty Paying for Meds: No Currently Unemployed: No Education: Master's Degree or Higher Difficulty w/ Childcare or Family Care: No Living arrangements: with family Occupation/Education: retired Gender identity (if verbalized by the patient): Female Sexual Orientation (if Verbalized by the Patient): Straight or Heterosexual Spiritual care concerns: No Agree to blood products: Yes Exam 2 Narrative: APPEARANCE: Well appearing, no pain, no distress, well-nourished. HEAD: normocephalic, atraumatic. EYES: PERRLA/EOMI, conjunctivae clear. NOSE: Normal no drainage EARS:TMS clear with good light reflex. THROAT: Pharynx clear, no exudate. NECK: Supple. No adenopathy, no masses. RESPIRATORY: Airway patent, respirations nonlabored. Clear to auscultation bilaterally, no rales, rhonchi, wheezing. CARDIOVASCULAR: Regular rate and rhythm without murmurs rubs or gallops. ABDOMINAL: Soft, nontender, nondistended, normal bowel sounds MUSCULOSKELETAL: Moves all extremities. Strength/ROM intact, No edema, No calf tenderness. NEURO: Alert. Cranial nerves II through XII intact. Grossly intact SKIN: Warm, dry. Normal Color Course Vital Signs Vital signs: Vital Signs Pulse Rate 79 12/08/24 08:45 Respiratory Rate 18 12/08/24 08:45 Blood Pressure 164/73 H 12/08/24 08:45 Pulse Oximetry 99 12/08/24 08:45 Oxygen Delivery Room Air 12/08/24 08:45 Pulse Rate 72 12/08/24 11:16 Respiratory Rate 14 12/08/24 11:16 Blood Pressure 155/79 H 12/08/24 11:16 Pulse Oximetry 99 12/08/24 11:16 Oxygen Delivery Room Air 12/08/24 08:45 Medical Decision Making MDM Narrative Medical decision making narrative: 74-year-old female presents emergency department for evaluation for nausea without vomiting. Patient is currently afebrile with no leukocytosis and a hemoglobin 13.4. No acute abnormalities on CMP. UA was negative for infection. CT scan does show continued increase in size of an indeterminate mass within the left adrenal gland for which nonemergent follow-up cross-sectional imaging with adrenal mass protocol is recommended for further evaluation. No bowel obstruction. Colonic diverticulosis without inflammation. Patient family updated the results of the exam. Patient was encouraged close follow-up with her physicians. Patient will be provided Zofran for nausea control. Patient was advised to take MiraLax for her constipation. Patient family updated on the results and were encouraged close follow-up with her primary care physician specifically regarding the adrenal mass. Differential Diagnosis Differential Diagnosis: Colitis, diverticulitis, small-bowel obstruction, constipation, UTI Vital Signs Vital Signs: Vital Signs Pulse Rate 79 12/08/24 08:45 Respiratory Rate 18 12/08/24 08:45 Blood Pressure 164/73 H 12/08/24 08:45 Pulse Oximetry 99 12/08/24 08:45 Oxygen Delivery Room Air 12/08/24 08:45 Pulse Rate 72 12/08/24 11:16 Respiratory Rate 14 12/08/24 11:16 Blood Pressure 155/79 H 12/08/24 11:16 Pulse Oximetry 99 12/08/24 11:16 Oxygen Delivery Room Air 12/08/24 08:45 Lab Data Lab results reviewed: Yes I reviewed the patient's lab results. 12/08/24 09:22 12/08/24 09:22 Labs: Lab Results 12/08/24 12/08/24 Range/Units 09:22 10:04 WBC 9.0 (4.5-10.0) K/mm3 RBC 4.59 (4.2-5.4) M/mm3 Hgb 13.4 (12.0-15.0) g/dL Hct 41.4 (37.0-47.0) % MCV 90.2 (80-100) fl MCH 29.2 (26-34) pg MCHC 32.4 (32-36) g/dl RDW 14.0 (11.5-14.5) % Plt Count 289 (150-375) k/mm3 MPV 9.2 (7.4-10.4) fl Immature Gran % (Auto) 0.7 H (0-0.5) % Neut % (Auto) 76.3 H (45.5-73.1) % Lymph % (Auto) 14.4 L (18.3-44.2) % Josephine % (Auto) 8.1 (2.6-8.5) % Eos % (Auto) 0.2 (0-4.4) % Baso % (Auto) 0.3 (0.2-1.2) % Lymph # (Auto) 1.29 (0.9-3.2) K/mm3 Josephine # (Auto) 0.7 H (0.1-0.6) K/mm3 Eos # (Auto) 0.0 (0-0.3) K/mm3 Baso # (Auto) 0.0 (0.0-0.1) K/mm3 Abs Immat Gran (auto) 0.06 H (0.00-0.031) K/mm3 Absolute Neuts (auto) 6.8 H (1.3-6.7) K/mm3 Absolute Nucleated RBC 0.000 (0.0-0.012) K/mm3 Nucleated RBC % 0.0 (0.0-0.2) % Sodium 139 (137-145) mmol/L Potassium 4.0 (3.4-5.0) mmol/L Chloride 104 (98-107) mmol/L Carbon Dioxide 26 (22-30) mmol/L Anion Gap 9 (4-12) mmol/L BUN 13 (7-17) mg/dL Creatinine 0.63 L (0.7-1.0) mg/dL Estim Creat Clear Calc 56 ml/min Estimated GFR > 60 (59 - ) Glucose 122 H (65-110) mg/dL Calcium 9.4 (8.4-10.2) mg/dL Total Bilirubin 0.7 (0.2-1.3) mg/dL AST 26 (14-36) U/L ALT 21 (6-35) U/L Alkaline Phosphatase 119 (38-126) U/L Total Protein 7.8 (6.3-8.2) g/dL Albumin 4.3 (3.5-5.1) g/dL Lipase 39 (23-300) U/L Urine Color Yellow (Yellow) Urine Appearance Clear (Clear) Urine pH 7.0 (5.0-9.0) Ur Specific [place] 1.015 (1.001-1.035) Urine Protein Negative (Negative) mg/dL Urine Glucose (UA) Negative (Negative) mg/dL Urine Ketones Trace H (Negative) mg/dL Ur Blood (Man) Negative (Negative) Urine Nitrate Negative (Negative) Urine Bilirubin Negative (Negative) Urine Urobilinogen 0.2 (<2.0) mg/dL Leukocyte Esterase Rfl Trace H (Negative) EDUARDO/UL Urine RBC 0-2 (0-2) /hpf Urine WBC 0-5 (0-3) /hpf Ur Squamous Epith Cells Occasional (Few) /hpf Urine Bacteria None seen /hpf Urine Casts 0-2 Imaging Data Radiologist's impression: Impressions Abdomen/Pelvis CT 12/08/24 10:32 IMPRESSION: Continued increase in size of an indeterminate mass within the left adrenal gland for which nonemergent follow-up cross-sectional imaging with adrenal mass protocol is recommended for further evaluation. No bowel obstruction. Colonic diverticulosis without inflammation. Discharge Plan Discharge Clinical Impression: Nausea, Constipation Patient Disposition: Home Condition: Stable Instructions: Antibiotic Form, Constipation (ED), Acute Nausea and Vomiting (DC) Additional Instructions: The lozenges may be worsening your nausea. Increase your consumption of these. Zofran as needed for nausea control. MiraLax as directed to help soft your stool. Drink plenty of water. Have close follow-up with your physicians. Your CT scan does show a mass within the left adrenal gland, this is not a new finding to today. Have follow-up with your primary care physician for this. Patient Language: Thai Prescriptions: New ondansetron 4 mg tablet,disintegrating 4 mg PO Q8H PRN (Reason: nausea and vomiting) Qty: 14 0RF No Action carbidopa-levodopa 25-100 mg tablet 2 tablet PO TID clobetasol 0.05 % solution 1 applic topical QHS Qty: 50 1RF Rx Instructions: Apply to itchy areas of scalp. hydroxyzine pamoate 25 mg capsule 25 mg PO BID PRN (Reason: anxiety) Qty: 14 0RF sertraline 50 mg tablet 50 mg PO DAILY Qty: 30 2RF cholecalciferol (vitamin D3) 25 mcg (1,000 unit) capsule 25 mcg PO DAILY Qty: 30 0RF Follow-up/Referrals: Rose Marie Henriquez MD [Primary Care Provider] -
--- NOTE | 2024-12-08 10:12 | PC.NURSE ---
Pt to CT at this time.
[2024-12-08 10:27] LABS: Add Urine Microscopic? YES; Appearance Urine Clear (Clear); Glucose Urine UA Negative (Negative); Leukocyte Esterase Ur Trace LEU/UL (Negative); Nitrate Urine Negative (Negative); Non Pathogenic Casts 0-2; Specific Grav Ur 1.015 (1.001-1.035)
[2024-12-08] MEDS: METOCLOPRAMIDE HCL INJ 10 MG/2 ML VIAL IV PUSH (10:28)
[2024-12-08] MEDS: LACTATED RINGERS 1,000 ML 999 ML IV CONT (10:28)
[2024-12-08 11:16] VITALS: BP 155/79; PULSE 72; RESP 14; O2SAT 99
== END 2024-12-08 11:43 | disposition home or self-care (01) ==
PROVIDERS: Emergency Provider Emergency Medicine; PCP Family Medicine
DX: K59.00 Constipation, unspecified (principal); R11.0 Nausea; G20.A1 Parkinson's disease without dyskinesia, without mention of fluctuations; E78.2 Mixed hyperlipidemia; N39.46 Mixed incontinence; R73.03 Prediabetes; Z87.891 Personal history of nicotine dependence; Z90.49 Acquired absence of other specified parts of digestive tract; Z90.710 Acquired absence of both cervix and uterus; Z98.41 Cataract extraction status, right eye; Z79.899 Other long term (current) drug therapy
CPT/HCPCS: 36415; 74177; 80053; 81001; 83690; 85025; 96361; 96374; 99284; J2765; J7120; Q9967

== ENCOUNTER 2025-03-24 12:27 | Emergency (ER) | payer MEDICARE, SELFPAY ==
[2025-03-24 12:36] VITALS: BP 157/57; PULSE 87; RESP 16; TEMP 36.4; O2SAT 98
--- NOTE | 2025-03-24 14:05 | ED.SKABFB ---
HPI - Skin/Abscess/Foreign Bdy General Chief complaint: Skin/Abscess/Foreign Body Stated complaint: Rash Time Seen by Provider: 03/24/25 13:35 Source: patient, family, RN notes reviewed and old records reviewed Mode of arrival: ambulatory Limitations: no limitations History of Present Illness HPI narrative: 74 year old female accompanied by son presents to express care with some dry scaly rash areas on her face for about 1 week duration. Son state that patient was also complaining of her right eye hurting the other day and he bought some drops for dry eye which seems to of helped. Son states that he took mother to the ED last week for extreme confusion and hallucinations and they did tests and kept her over night for observation and started her on Seroquel but had rash before medication started/ Son reports that mother has appointment with psychiatry this Monday. Patient has history of Parkinsons disease and admits her memory isn't good. Son reports that he knows of no new soaps, food, laundry detergents or lotions that mother has used. MD complaint: rash Onset (ago): week(s) (1 week) Location: face Severity: mild Treatments prior to arrival: none Related Data Home Medications ?Medication ?Instructions ?Recorded ?Confirmed ?Last Taken ?Type carbidopa 25 mg-levodopa 100 mg 2 tablet PO TID 06/04/24 03/24/25 Unknown History tablet Allergies Allergy/AdvReac Type Severity Reaction Status Date / Time aspirin AdvReac Mild BLEEDING Verified 03/24/25 12:40 GUMS atorvastatin AdvReac Mild HAND Verified 03/24/25 12:40 MYALGIA simvastatin AdvReac Mild HAND Verified 03/24/25 12:40 MYALGIA Review of Systems Review of Systems: CONSTITUTIONAL: Denies fever, chills, or sweats. CARDIOVASCULAR: Denies chest pain, palpitations, or edema. RESPIRATORY: Denies cough or dyspnea. SKIN: Reports rash to face scaly dry skin areas mainly on cheeks and on nasal fold, no pain little itchy MUSCULOSKELETAL: Denies joint pain or myalgia. NEUROLOGIC: Denies headache, numbness, reports weakness.due to Parkinson disease All systems reviewed & are unremarkable except as noted in HPI and below PMFSH Past Medical History Medical History Scalp irritation Parkinson disease Prediabetes Chronic constipation Mixed stress and urge urinary incontinence Diverticulitis Mixed hyperlipidemia Intolerant to statins Surgical History Surgical History Status post small bowel resection 06/17/21 History of bilateral salpingo-oophorectomy (BSO) History of vaginal hysterectomy Hx of Achilles tendon repair History of right cataract extraction H/O resection of large bowel Due to diverticulitis Family History Family History Mother , Age greater than 80 Diabetes mellitus Father , at age 89 Acute myocardial infarction Age greater than 80 Social History Social History Social History: She has been since 2017. She was for 51 years prior to her 's . She has 3 adult sons. 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 She smoked a half a pack of cigarettes per day for 20 years but quit smoking in her late 30s. She drinks 1 mixed drink a night since her . She denies any illicit substance use. Primary care physician: Dr. Rose Marie Henriquez Code status: Full code Healthcare power of launch leader: Harsha (oldest son) Tobacco type: cigarettes Second hand tobacco smoke exposure: No Smoking end date: 05/15/84 Alcohol intake: never Substance use: never Substance use type: does not use Lack of Transportation: No Lack of Food: Never True Current Housing: I Have Housing Concerned About Future Housing: No Difficulty Paying Gas/Electric Bills: No Difficulty Paying for Meds: No Currently Unemployed: No Education: Master's Degree or Higher Difficulty w/ Childcare or Family Care: No Living arrangements: with family Occupation/Education: retired Gender identity (if verbalized by the patient): Female Sexual Orientation (if Verbalized by the Patient): Straight or Heterosexual Spiritual care concerns: No Agree to blood products: Yes Comments At time of signature, agree with nursing past medical, surgical, social and family history. There is no relevant family history pertinent to the presenting complaint Exam Narrative: GENERAL:chronic ill-appearing, fair-nourished, and in no acute distress. HEAD: Normocephalic, atraumatic. EYES: PERRLA, conjunctivae clear, and EOMI. reports complaints of right eye discomfort resolved with use of OTC dry eye medication ENT: Mucous membranes moist. Oropharynx without edema, erythema or lesions. NECK: Supple. No lymphadenopathy CHEST: Clear to auscultation. No respiratory distress.SAO2 98% on room air HEART: Regular rate and rhythm. SKIN: Warm, dry.? Patches of dry scaly rash on face mainly on cheeks and nasal fold reports no itching or pain NEURO:? Alert and oriented x3. history of Parkinson PSYCH: bland affect states she can't remember things anymore Course Course Emergency Course: Patient is aware of diagnosis, understands and agrees to treatment plan.? Anticipatory guidance given.? Patient agrees to follow-up as directed and is aware of reasons to seek care at the emergency department. Portions of this record may have been created with voice recognition software Level of Care: Express Care Visit Vital Signs Vital signs: Vital Signs Temperature 36.4 C L 03/24/25 12:36 Pulse Rate 87 03/24/25 12:36 Respiratory Rate 16 03/24/25 12:36 Blood Pressure 157/57 H 03/24/25 12:36 Pulse Oximetry 98 03/24/25 12:36 Temperature 36.4 C L 03/24/25 12:36 Pulse Rate 87 03/24/25 12:36 Respiratory Rate 16 03/24/25 12:36 Blood Pressure 157/57 H 03/24/25 12:36 Pulse Oximetry 98 03/24/25 12:36 Reviewed MDM - Skin/Abscess/Foreign Bdy MDM Narrative Medical decision making narrative: Does not appear at this time to be erythema multiforme, bullous, SJS, TEN; no evidence at this time to suggest RMSF, endocarditis or Lyme disease; patient looks well, nontoxic and is tolerating oral intake; no neurologic signs or symptoms; no headache, photophobia or neck pain; afebrile; appropriate for initial outpatient treatment; discussed the importance of follow-up, patient agrees; question, viral exanthema, contact dermatitis, allergic dermatitis, eczema, urticaria. No soft palate or uvula edema, no tongue, lip edema or other mucosal involvement, no respiratory compromise, no stridor, no wheezing, no wheezing, no history of syncope, no hypotension, no nausea, vomiting, or diarrhea.? Instructed patient to go to nearest ER immediately for any worsening symptoms including but not limited to: fever, spreading rash, pain, sore throat, headache, dizziness, chest pain, trouble breathing, or any symptoms concerning to the patient. Differential Diagnosis Differential diagnosis: Likely cellulitis, eczema and contact dermatitis Medical Records Attestation: I reviewed the patient's medical records. Critical Care Time Critical Care Time Critical Care Time: No Discharge Plan Discharge Clinical Impression: Contact dermatitis and other eczema, due to unspecified cause Patient Disposition: Home Condition: Stable Instructions: Antibiotic Form, Contact Dermatitis (ED) Additional Instructions: apply mupirocin ointment to the facial rash twice daily watch for any infection--redness, swelling, drainage Tylenol for any pain per package instructions Zyrtec daily for 10 days Pepcid daily for 10 days follow up with PCP in 7-10 days for a wound check recheck if develop fever, chills, increasing symptom Go to the ER if your symptoms become worse of if ANY new symptoms develop Medrol Dosepak take as prescribed If your symptoms persist, change or worsen significantly before you can contact your personal physician then please, without delay, go to the emergency department for further evaluation. Follow-up with PCP in 7-10 days or sooner if needed Follow up with PCP soon in regards to your blood pressure which is elevated above threshold for referral. Blood pressure above 120/80 may indicate pre-hypertension.157/57 Patient Language: Czech Prescriptions: New methylprednisolone [Medrol (Bertin)] 4 mg tablets,dose pack See Rx Instructions .ROUTE .COMPLEX Qty: 21 0RF Rx Instructions: orally per package directions famotidine [Pepcid] 20 mg tablet 20 mg PO DAILY Qty: 10 0RF mupirocin [Centany] 2 % ointment 1 applic topical BID Qty: 22 0RF No Action carbidopa-levodopa 25-100 mg tablet 2 tablet PO TID clobetasol 0.05 % solution 1 applic topical QHS Qty: 50 1RF Rx Instructions: Apply to itchy areas of scalp. hydroxyzine pamoate 25 mg capsule 25 mg PO BID PRN (Reason: anxiety) Qty: 14 0RF ondansetron 4 mg tablet,disintegrating 4 mg PO Q8H PRN (Reason: nausea and vomiting) Qty: 14 0RF sertraline 50 mg tablet 50 mg PO DAILY Qty: 30 2RF cholecalciferol (vitamin D3) 25 mcg (1,000 unit) capsule 25 mcg PO DAILY Qty: 30 0RF quetiapine 25 mg tablet 25 mg PO QHS Qty: 30 0RF Follow-up/Referrals: Martinez,MD Rose Marie [Primary Care Provider, [facility]] Time of Disposition: 14:11 Quality [place] Coma Scale Eyes: Open Verbal: Oriented and Alert Motor: Follows Commands [place] Coma Total Score: 15
== END 2025-03-24 14:15 | disposition home or self-care (01) ==
PROVIDERS: Emergency Provider Registered Nurse; PCP Family Medicine
DX: L25.9 Unspecified contact dermatitis, unspecified cause (principal); Z87.891 Personal history of nicotine dependence; G20.A1 Parkinson's disease without dyskinesia, without mention of fluctuations; R73.03 Prediabetes; E78.2 Mixed hyperlipidemia; Z98.41 Cataract extraction status, right eye
CPT/HCPCS: 99213; G0463